=== PATIENT | male | born 1965 | race Two or more races ===

== ENCOUNTER 2017-10-30 11:57 | Inpatient (IN) | payer OTHER ==
[2017-10-30 13:16] VITALS: BMI 18.7
--- NOTE | 2017-10-30 15:37 | HP ---
COWS - Scale Resting Pulse: 1= [place] 81-100 Sweatin=Flushed/Facial Moisture Restless Observation: 1= Difficult to Sit Still Pupil Size: 0= Normal to Room Light Bone or Joint Aches: 2= Severe Diffuse Aches Runny Nose/ Eye Tearin= Runny Nose/Eyes GI Upset > 30mins: 2= Nausea/Diarrhea Tremor Observation: 2= Slight Tremor Visible Yawning Observation: 2= >3x During Session Anxiety or Irritability: 2=Irritable/Anxious Goose Flesh Skin: 3=Piloerection COWS Score: 19 Admission ROS S - HPI Chief Complaint: i need help with this drug use. Allergies/Adverse Reactions: Allergies Allergy/AdvReac Type Severity Reaction Status Date / Time No Known Drug Allergies Allergy Unknown Verified 07/22/12 08:30 seafood Allergy Severe Hives Uncoded 10/30/17 15:08 History of Present Illness: pt is a 52yr old male with a history of heorin and crack/cocaine dependence seeking detox for treatment. - Ebola screening Have you traveled outside of the country in the last 21 days: No Have you had contact with anyone from an Ebola affected area: No Have you been sick,other than usual withdrawal symptoms: No Do you have a fever: No - Review of Systems Constitutional: Chills, Diaphoresis, Loss of Appetite, Night Sweats, Changes in sleep, Unintentional Wgt. Loss EENT: reports: Tearing, Nose Congestion Respiratory: reports: No Symptoms reported Cardiac: reports: No Symptoms Reported GI: reports: Poor Appetite, Poor Fluid Intake : reports: No Symptoms Reported Musculoskeletal: reports: No Symptoms Reported, Joint Pain Integumentary: reports: Flushing, Sweating Neuro: reports: Headache, Tingling, Tremors Endocrine: reports: Excessive Sweating, Flushing, Intolerance to Cold, Intolerance to Heat Hematology: reports: No Symptoms Reported Psychiatric: reports: No Sypmtoms Reported, Judgement Intact, Mood/Affect Appropiate, Orientated x3, Agitated, Anxious Other Systems: Reviewed and Negative Patient History - Patient Medical History Hx Anemia: No Hx Asthma: Yes (on medication) Hx Chronic Obstructive Pulmonary Disease (COPD): No Hx Cancer: No Hx Cardiac Disorders: No Hx Congestive Heart Failure: No Hx Hypertension: Yes (non compliance) Hx Hypercholesterolemia: No Hx Pacemaker: No HX Cerebrovascular Accident: No Hx Seizures: Yes (drug related last 2010) Hx Dementia: No Hx Diabetes: No Hx Gastrointestinal Disorders: No Hx Liver Disease: No Hx Genitourinary Disorders: No Hx Sexually Transmitted Disorders: Yes (HIV, syphillis) Hx Renal Disease (ESRD): No Hx Thyroid Disease: No Hx Human Immunodeficiency Virus (HIV): Yes (since 1991/ non compliant with medication) Hx Hepatitis C: Yes (since 2003) Hx Depression: Yes (non compliance with med) Hx Suicide Attempt: No Hx Bipolar Disorder: Yes (non compliance with med) Hx Schizophrenia: No - Patient Surgical History Past Surgical History: Yes Hx Neurologic Surgery: No Hx Cataract Extraction: No Hx Cardiac Surgery: No Hx Lung Surgery: No Hx Breast Surgery: No Hx Breast Biopsy: No Hx Abdominal Surgery: No Hx Appendectomy: No Hx Cholecystectomy: No Hx Genitourinary Surgery: No Hx Section: No Hx Orthopedic Surgery: Yes (surgery for osteomyelitis left hip in 1983,1986) Other Surgical History: ambulation with cane Anesthesia Reaction: No - PPD History Previous Implant?: Yes Documented Results: Negative w/o proof Implanted On Prior R Admission?: Yes PPD to be Administered?: Yes - Reproductive History Patient is a Female of Child Bearing Age (11 -55 yrs old): No - Smoking Cessation Smoking history: Current every day smoker Have you smoked in the past 12 months: Yes Aproximately how many cigarettes per day: 10 Hx Chewing Tobacco Use: No Initiated information on smoking cessation: Yes 'Breaking Loose' booklet given: 10/30/17 - Substance & Tx. History Hx Substance Use: Yes Substance Use Type: Cocaine, Heroin Hx Substance Use Treatment: Yes (last detox [facility] 2014) - Substances Abused Heroin Route: Injection Frequency: Daily Amount used: 10-12 bags Age of first use: 16 Date of Last Use: 10/30/17 Crack Route: Smoking Frequency: Daily Amount used: $100-200 Age of first use: 23 Date of Last Use: 10/29/17 Family Disease History - Family Disease History Family Disease History: Diabetes: Mother (), Other: Father () Admission Physical Exam BHS - Vital Signs Vital Signs: Vital Signs - 24 hr 10/30/17 13:14 Temperature 96 F L Pulse Rate 81 Respiratory 20 Rate Blood Pressure 137/98 - Physical General Appearance: Yes: Appropriately Dressed, Moderate Distress, Cachetic, Thin, Tremorous, Irritable, Sweating, Anxious HEENTM: Yes: Normal Voice, Nasal Congestion, Rhinorrhea Respiratory: Yes: Lungs Clear, Normal Breath Sounds, No Respiratory Distress Neck: Yes: No masses,lesions,Nodules Breast: Yes: Within Normal Limits Cardiology: Yes: Regular Rhythm, Regular Rate, S1, S2 Abdominal: Yes: Normal Bowel Sounds, Non Tender, Soft Genitourinary: Yes: Within Normal Limits Back: Yes: Normal Inspection Musculoskeletal: Yes: Back pain, Muscle Pain Extremities: Yes: Normal Capillary Refill, Normal Inspection, Non-Tender, Tremors Neurological: Yes: Fully Oriented, Alert, Normal Response Integumentary: Yes: Normal Color, Diaphoresis, Track Weeks Lymphatic: Yes: Within Normal Limits - Diagnostic (1) Acquired immune deficiency syndrome (AIDS) Current Visit: Yes Status: Chronic Comment: non compliant with his medication (2) Asthma Current Visit: Yes Status: Chronic (3) Cocaine dependence Current Visit: Yes Status: Chronic (4) Essential hypertension Current Visit: Yes Status: Chronic (5) Hepatitis C carrier Current Visit: Yes Status: Chronic (6) Opioid dependence with withdrawal Current Visit: Yes Status: Chronic Cleared for Admission [facility] - Detox or Rehab [facility] Level of Care: Medically Managed Detox Regimen/Protocol: Methadone [facility] Breath Alcohol Content Breath Alcohol Content: 0 Urine Drug Screen - Results Drug Screen Negative: No Urine Drug Screen Results: THC-Marijuana, BENITO-Cocaine, OPI-Opiates
[2017-10-30] MEDS ORDERED: ACETAMINOPHEN 325 MG TABLET (FP) PO PRN (15:47)
[2017-10-30] MEDS ORDERED: NICOTINE POLACRILEX 4 MG GUM BC PRN (15:47)
[2017-10-30] MEDS ORDERED: MAGNESIUM CITRATE 300 ML BOTTLE PO PRN (15:47)
[2017-10-30] MEDS ORDERED: guaiFENesin/D-METHORPHAN HB 10 ML UNIT-DOSE CUPS PO PRN (15:47)
[2017-10-30] MEDS ORDERED: MAG HYDROX/AL HYDROX/SIMETH 30 ML UNIT-DOSE CUP PO PRN (15:47)
[2017-10-30] MEDS ORDERED: P-EPHED 60MG/TRIPROLIDI 2.5MG TABLET PO PRN (15:47)
[2017-10-30] MEDS ORDERED: IBUPROFEN 400 MG TABLET (FP) PO PRN (15:47)
[2017-10-30] MEDS ORDERED: hydrOXYzine PAMOATE 50 MG CAPSULE (FP) PO PRN (15:47)
[2017-10-30] MEDS ORDERED: MENTHOL/PHENOL 1 EACH UD MM PRN (15:47)
[2017-10-30] MEDS ORDERED: LOPERAMIDE HCL 2 MG CAPSULE PO PRN (15:47)
[2017-10-30] MEDS ORDERED: MAGNESIUM HYDROX 2400MG/30ML ORAL SUSPENSION 30 ML CUP PO PRN (15:47)
[2017-10-30] MEDS ORDERED: ALBUTEROL SO4 18 GM HFA INHALER IH PRN (15:49)
[2017-10-30] MEDS ORDERED: METHADONE HCL 10 MG TABLET (FOR DETOX USE ONLY) PO ONE ×2 (16:30→23:00)
[2017-10-30] MEDS: diazePAM 5 MG TABLET PO PRN ×2 (18:07→22:28)
[2017-10-30] MEDS: THIAMINE HCL 100 MG TABLET (FP) PO SCH (22:27)
[2017-10-31 00:26] LABS: URINE APPEARANCE SLCLOUDY; URINE BILIRUBIN NEGATIVE (NEGATIVE); URINE BLOOD NEGATIVE (NEGATIVE); URINE COLOR AMBER; URINE GLUCOSE (UA) NEGATIVE (NEGATIVE); URINE KETONE NEGATIVE (NEGATIVE); URINE LEUK ESTERASE NEGATIVE (NEGATIVE); URINE NITRITE NEGATIVE (NEGATIVE); URINE PROTEIN NEGATIVE (NEGATIVE); URINE UROBILINOGEN 4.0 E.U/dl mg/dL (0.2-1.0)
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
[2017-10-31] MEDS ORDERED: METHADONE HCL 10 MG TABLET (FOR DETOX USE ONLY) PO ONE (10:00)
[2017-10-31] MEDS: NICOTINE 21 MG/24 HOURS TOPICAL PATCH TD SCH (10:29)
[2017-10-31] MEDS: PRENATAL VITAMINS W/ FOLIC ACID TABLET (FP) PO SCH (10:29)
[2017-10-31] MEDS: diazePAM 5 MG TABLET PO PRN ×2 (10:30→22:26)
--- NOTE | 2017-10-31 10:50 | EKG ---
Test Reason : Blood Pressure : / mmHG Vent. Rate : 076 BPM Atrial Rate : 076 BPM P-R Int : 142 ms QRS Dur : 082 ms QT Int : 398 ms P-R-T Axes : 064 045 060 degrees QTc Int : 447 ms NORMAL SINUS RHYTHM NORMAL ECG NO PREVIOUS ECGS AVAILABLE Confirmed by MD CHARU, MYCHAL ([id number]) on 10/31/2017 10:50:23 AM Referred By: Confirmed By:MYCHAL BOX MD
[2017-10-31 11:07] LABS: ALBUMIN 2.5 g/dl (3.4-5.0); ANION GAP 4 (8-16); CALCIUM 7.9 mg/dL (8.5-10.1); CO2 31 mmol/L (21-32); GLUCOSE,RANDOM 77 mg/dL (74-106)
[2017-10-31 11:10] LABS: ALK PHOS 117 U/L (45-117); BILIRUBIN,TOTAL 0.3 mg/dL (0.2-1.0); CREATININE 0.8 mg/dL (0.7-1.3); SGOT/AST 63 U/L (15-37); SGPT/ALT 47 U/L (12-78); TOT PROT 6.3 g/dl (6.4-8.2)
[2017-10-31] MEDS: ESCITALOPRAM OXALATE 10 MG TABLET (FP) PO SCH (11:11)
[2017-10-31 11:13] LABS: MCH 27.7 pg (25.7-33.7); MCHC 32.1 g/dl (32.0-35.9); MEAN CELL VOLUME 86.5 fl (80-96); MEAN PLT VOLUME 8.9 fl (7.5-11.1); PLATELET COUNT 81 K/MM3 (134-434); RDW 15.7 % (11.9-15.9)
--- NOTE | 2017-10-31 14:42 | PN ---
S COWS - Scale Resting Pulse: 0= [place] 80 or Below Sweatin= No chills or Flushing Restless Observation: 1= Difficult to Sit Still Pupil Size: 0= Normal to Room Light Bone or Joint Aches: 2= Severe Diffuse Aches Runny Nose/ Eye Tearin= None GI Upset > 30mins: 1= Stomach Cramp Tremor Observation of Outstretched Hands: 2= Slight Tremor Visible Yawning Observation: 2= >3x During Session Anxiety or Irritability: 2=Irritable/Anxious Goose Flesh Skin: 3=Piloerection COWS Score: 13 S Progress Note (SOAP) Subjective: Anxious, Interrupted Sleep, Tremors, Sweating, Fatigue. Objective: PT. A & O X 3. NO ACUTE DISTRESS. 10/31/17 14:40 Vital Signs Temperature 98.2 F 10/31/17 13:09 Pulse Rate 80 10/31/17 13:09 Respiratory Rate 18 10/31/17 13:09 Blood Pressure 128/85 10/31/17 13:09 O2 Sat by Pulse Oximetry (%) Laboratory Tests 10/30/17 10/31/17 10/31/17 21:00 07:00 07:00 WBC 2.0 L RBC 3.79 L Hgb 10.5 L D Hct 32.8 L MCV 86.5 MCH 27.7 MCHC 32.1 RDW 15.7 Plt Count 81 L D MPV 8.9 Sodium 145 Potassium 3.6 Chloride 110 H Carbon Dioxide 31 Anion Gap 4 L BUN 15 D Creatinine 0.8 Creat Clearance w eGFR > 60 Random Glucose 77 D Calcium 7.9 L Total Bilirubin 0.3 D AST 63 H ALT 47 D Alkaline Phosphatase 117 Total Protein 6.3 L Albumin 2.5 L D Urine Color [place] Urine Appearance Slcloudy Urine pH 5.0 Ur Specific [place] 1.021 Urine Protein Negative Urine Glucose (UA) Negative Urine Ketones Negative Urine Blood Negative Urine Nitrite Negative Urine Bilirubin Negative Urine Urobilinogen 4.0 e.u/dl RPR Titer 10/31/17 07:00 WBC RBC Hgb Hct MCV MCH MCHC RDW Plt Count MPV Sodium Potassium Chloride Carbon Dioxide Anion Gap BUN Creatinine Creat Clearance w eGFR Random Glucose Calcium Total Bilirubin AST ALT Alkaline Phosphatase Total Protein Albumin Urine Color Urine Appearance Urine pH Ur Specific [place] Urine Protein Urine Glucose (UA) Urine Ketones Urine Blood Urine Nitrite Urine Bilirubin Urine Urobilinogen RPR Titer Nonreactive LABS NOTED. PATIENT HAS HAD LOW WBC VALUES ON PREVIOUS ADMISSIONS. 10/31/17 14:43 Assessment: 10/31/17 14:41 WITHDRAWAL SYMPTOMS. LEUKOPENIA. ANEMIA. 10/31/17 14:44 Plan: CONTINUE DETOX. FEOSOL, 325 MG PO DAILY.
[2017-10-31 15:07] LABS: URINE LEUK ESTERASE Negative (NEGATIVE)
[2017-10-31] MEDS: FERROUS SO4 325 MG TABLET (FP) PO SCH (15:13)
[2017-10-31] MEDS: ZOLPIDEM TARTRATE 10 MG TABLET (PARK CARE ONLY) PO PRN (22:26)
[2017-10-31] MEDS: THIAMINE HCL 100 MG TABLET (FP) PO SCH (22:26)
[2017-11-01] MEDS: diazePAM 5 MG TABLET PO PRN ×3 (05:17→22:24)
[2017-11-01] MEDS ORDERED: METHADONE HCL 5 MG TABLET (FOR DETOX USE ONLY) PO ONE (10:00)
[2017-11-01] MEDS: FERROUS SO4 325 MG TABLET (FP) PO SCH (10:30)
[2017-11-01] MEDS: ESCITALOPRAM OXALATE 10 MG TABLET (FP) PO SCH (10:30)
[2017-11-01] MEDS: PRENATAL VITAMINS W/ FOLIC ACID TABLET (FP) PO SCH (10:30)
[2017-11-01] MEDS: NICOTINE 21 MG/24 HOURS TOPICAL PATCH TD SCH (10:32)
--- NOTE | 2017-11-01 13:58 | PN ---
S COWS - Scale Resting Pulse: 1= [place] 81-100 Sweatin= Chills/Flushing Restless Observation: 1= Difficult to Sit Still Pupil Size: 0= Normal to Room Light Bone or Joint Aches: 2= Severe Diffuse Aches Runny Nose/ Eye Tearin= Nasal Congestion GI Upset > 30mins: 0= None Tremor Observation of Outstretched Hands: 0= None Yawning Observation: 1= 1-2x During Session Anxiety or Irritability: 2=Irritable/Anxious Goose Flesh Skin: 3=Piloerection COWS Score: 12 BHS Progress Note (SOAP) Subjective: Tremors, Fatigue, Body Aches. Objective: PT. A & O X 3, OBSERVED AMBULATING ON UNIT. NO ACUTE DISTRESS. PT. DENIES CHEST PAIN. 11/01/17 13:59 Vital Signs Temperature 97.5 F L 11/01/17 13:24 Pulse Rate 85 11/01/17 13:24 Respiratory Rate 18 11/01/17 13:24 Blood Pressure 138/99 11/01/17 13:24 O2 Sat by Pulse Oximetry (%) Laboratory Tests 10/30/17 10/31/17 10/31/17 21:00 07:00 07:00 WBC 2.0 L RBC 3.79 L Hgb 10.5 L D Hct 32.8 L MCV 86.5 MCH 27.7 MCHC 32.1 RDW 15.7 Plt Count 81 L D MPV 8.9 Sodium 145 Potassium 3.6 Chloride 110 H Carbon Dioxide 31 Anion Gap 4 L BUN 15 D Creatinine 0.8 Creat Clearance w eGFR > 60 Random Glucose 77 D Calcium 7.9 L Total Bilirubin 0.3 D AST 63 H ALT 47 D Alkaline Phosphatase 117 Total Protein 6.3 L Albumin 2.5 L D Urine Color [place] Urine Appearance Slcloudy Urine pH 5.0 Ur Specific [place] 1.021 Urine Protein Negative Urine Glucose (UA) Negative Urine Ketones Negative Urine Blood Negative Urine Nitrite Negative Urine Bilirubin Negative Urine Urobilinogen 4.0 e.u/dl Ur Leukocyte Esterase Negative RPR Titer 10/31/17 07:00 WBC RBC Hgb Hct MCV MCH MCHC RDW Plt Count MPV Sodium Potassium Chloride Carbon Dioxide Anion Gap BUN Creatinine Creat Clearance w eGFR Random Glucose Calcium Total Bilirubin AST ALT Alkaline Phosphatase Total Protein Albumin Urine Color Urine Appearance Urine pH Ur Specific [place] Urine Protein Urine Glucose (UA) Urine Ketones Urine Blood Urine Nitrite Urine Bilirubin Urine Urobilinogen Ur Leukocyte Esterase RPR Titer Nonreactive LABS NOTED. Assessment: 11/01/17 13:59 WITHDRAWAL SYMPTOMS. Plan: CONTINUE DETOX. REPEAT CBC TOMORROW AM FOR ABNORMAL ADMISSION LEVELS.
[2017-11-01] MEDS: THIAMINE HCL 100 MG TABLET (FP) PO SCH (22:23)
[2017-11-01] MEDS: ZOLPIDEM TARTRATE 10 MG TABLET (PARK CARE ONLY) PO PRN (22:23)
[2017-11-02] MEDS ORDERED: METHADONE HCL 5 MG TABLET (FOR DETOX USE ONLY) PO ONE (10:00)
[2017-11-02 10:23] LABS: MCHC 32.4 g/dl (32.0-35.9); MEAN CELL VOLUME 86.5 fl (80-96); MEAN PLT VOLUME 9.5 fl (7.5-11.1); PLATELET COUNT 101 K/MM3 (134-434); RDW 15.2 % (11.9-15.9); WHITE BLOOD COUNT 2.4 K/mm3 (4.0-10.0)
[2017-11-02] MEDS: FERROUS SO4 325 MG TABLET (FP) PO SCH (10:30)
[2017-11-02] MEDS: NICOTINE 21 MG/24 HOURS TOPICAL PATCH TD SCH (10:30)
[2017-11-02] MEDS: PRENATAL VITAMINS W/ FOLIC ACID TABLET (FP) PO SCH (10:30)
[2017-11-02] MEDS: ESCITALOPRAM OXALATE 10 MG TABLET (FP) PO SCH (10:30)
--- NOTE | 2017-11-02 13:21 | PN ---
BHS Progress Note (SOAP) Subjective: Chills, sweating, nausea, interrupted sleep Objective: 11/02/17 13:19 Last Vital Signs Temp Pulse Resp BP Pulse Ox 99.4 F 93 H 18 118/85 11/02/17 10:33 11/02/17 10:33 11/02/17 10:33 11/02/17 10:33 Laboratory Tests 10/30/17 10/31/17 10/31/17 21:00 07:00 07:00 WBC 2.0 L RBC 3.79 L Hgb 10.5 L D Hct 32.8 L MCV 86.5 MCH 27.7 MCHC 32.1 RDW 15.7 Plt Count 81 L D MPV 8.9 Neutrophils % Lymphocytes % Sodium 145 Potassium 3.6 Chloride 110 H Carbon Dioxide 31 Anion Gap 4 L BUN 15 D Creatinine 0.8 Creat Clearance w eGFR > 60 Random Glucose 77 D Calcium 7.9 L Total Bilirubin 0.3 D AST 63 H ALT 47 D Alkaline Phosphatase 117 Total Protein 6.3 L Albumin 2.5 L D Urine Color [place] Urine Appearance Slcloudy Urine pH 5.0 Ur Specific [place] 1.021 Urine Protein Negative Urine Glucose (UA) Negative Urine Ketones Negative Urine Blood Negative Urine Nitrite Negative Urine Bilirubin Negative Urine Urobilinogen 4.0 e.u/dl Ur Leukocyte Esterase Negative RPR Titer 10/31/17 11/02/17 07:00 08:00 WBC 2.4 L RBC 3.78 L Hgb 10.6 L Hct 32.7 L MCV 86.5 MCH 28.0 MCHC 32.4 RDW 15.2 Plt Count 101 L D MPV 9.5 Neutrophils % No Result Required. Lymphocytes % No Result Required. Sodium Potassium Chloride Carbon Dioxide Anion Gap BUN Creatinine Creat Clearance w eGFR Random Glucose Calcium Total Bilirubin AST ALT Alkaline Phosphatase Total Protein Albumin Urine Color Urine Appearance Urine pH Ur Specific [place] Urine Protein Urine Glucose (UA) Urine Ketones Urine Blood Urine Nitrite Urine Bilirubin Urine Urobilinogen Ur Leukocyte Esterase RPR Titer Nonreactive Labs noted Assessment: 11/02/17 13:20 Withdrawal symptoms Plan: Continue detox
[2017-11-02 14:25] LABS: TOTAL CELLS COUNTED 100
[2017-11-02 14:26] LABS: PLATELET ESTIMATE SLT DECREASE; REACTIVE LYMPHOCYTES 7 % (0-80)
[2017-11-02] MEDS: ZOLPIDEM TARTRATE 10 MG TABLET (PARK CARE ONLY) PO PRN (22:13)
[2017-11-02] MEDS: THIAMINE HCL 100 MG TABLET (FP) PO SCH (22:13)
[2017-11-03] MEDS ORDERED: METHADONE HCL 10 MG TABLET (FOR DETOX USE ONLY) PO ONE (10:00)
[2017-11-03] MEDS: PRENATAL VITAMINS W/ FOLIC ACID TABLET (FP) PO SCH (10:20)
[2017-11-03] MEDS: NICOTINE 21 MG/24 HOURS TOPICAL PATCH TD SCH (10:20)
[2017-11-03] MEDS: ESCITALOPRAM OXALATE 10 MG TABLET (FP) PO SCH (10:20)
[2017-11-03] MEDS: FERROUS SO4 325 MG TABLET (FP) PO SCH (10:20)
--- NOTE | 2017-11-03 12:15 | PN ---
BHS Progress Note (SOAP) Subjective: Tremors, Fatigue, Interrupted Sleep. Objective: PT. A & O X 3, OBSERVED AMBULATING ON UNIT. NO ACUTE DISTRESS. 11/03/17 12:13 Vital Signs Temperature 97 F L 11/03/17 09:22 Pulse Rate 79 11/03/17 09:22 Respiratory Rate 18 11/03/17 09:22 Blood Pressure 124/84 11/03/17 09:22 O2 Sat by Pulse Oximetry (%) Laboratory Tests 10/30/17 10/31/17 10/31/17 21:00 07:00 07:00 WBC 2.0 L RBC 3.79 L Hgb 10.5 L D Hct 32.8 L MCV 86.5 MCH 27.7 MCHC 32.1 RDW 15.7 Plt Count 81 L D MPV 8.9 Total Counted Neutrophils % Neutrophils % (Manual) Band Neutrophils % Lymphocytes % Lymphocytes % (Manual) Monocytes % (Manual) Eosinophils % (Manual) Platelet Estimate Sodium 145 Potassium 3.6 Chloride 110 H Carbon Dioxide 31 Anion Gap 4 L BUN 15 D Creatinine 0.8 Creat Clearance w eGFR > 60 Random Glucose 77 D Calcium 7.9 L Total Bilirubin 0.3 D AST 63 H ALT 47 D Alkaline Phosphatase 117 Total Protein 6.3 L Albumin 2.5 L D Urine Color [place] Urine Appearance Slcloudy Urine pH 5.0 Ur Specific [place] 1.021 Urine Protein Negative Urine Glucose (UA) Negative Urine Ketones Negative Urine Blood Negative Urine Nitrite Negative Urine Bilirubin Negative Urine Urobilinogen 4.0 e.u/dl Ur Leukocyte Esterase Negative RPR Titer 10/31/17 11/02/17 07:00 08:00 WBC 2.4 L RBC 3.78 L Hgb 10.6 L Hct 32.7 L MCV 86.5 MCH 28.0 MCHC 32.4 RDW 15.2 Plt Count 101 L D MPV 9.5 Total Counted 100 Neutrophils % No Result Required. Neutrophils % (Manual) 31.0 L Band Neutrophils % 3.0 Lymphocytes % No Result Required. Lymphocytes % (Manual) 51.0 H Monocytes % (Manual) 4 Eosinophils % (Manual) 4.0 Platelet Estimate Slt decrease Sodium Potassium Chloride Carbon Dioxide Anion Gap BUN Creatinine Creat Clearance w eGFR Random Glucose Calcium Total Bilirubin AST ALT Alkaline Phosphatase Total Protein Albumin Urine Color Urine Appearance Urine pH Ur Specific [place] Urine Protein Urine Glucose (UA) Urine Ketones Urine Blood Urine Nitrite Urine Bilirubin Urine Urobilinogen Ur Leukocyte Esterase RPR Titer Nonreactive LABS NOTED. Assessment: 11/03/17 12:13 WITHDRAWAL SYMPTOMS. Plan: CONTINUE DETOX. INCREASE DAILY PO FLUID INTAKE.
[2017-11-03] MEDS: ZOLPIDEM TARTRATE 10 MG TABLET (PARK CARE ONLY) PO PRN (21:59)
[2017-11-03] MEDS: THIAMINE HCL 100 MG TABLET (FP) PO SCH (22:22)
[2017-11-04] MEDS ORDERED: METHADONE HCL 5 MG TABLET (FOR DETOX USE ONLY) PO ONE (06:00)
[2017-11-04 09:13] VITALS: BP 106/78; PULSE 89; TEMP 98.6
[2017-11-04] MEDS: NICOTINE 21 MG/24 HOURS TOPICAL PATCH TD SCH (10:23)
[2017-11-04] MEDS: PRENATAL VITAMINS W/ FOLIC ACID TABLET (FP) PO SCH (10:23)
[2017-11-04] MEDS: FERROUS SO4 325 MG TABLET (FP) PO SCH (10:24)
[2017-11-04] MEDS: ESCITALOPRAM OXALATE 10 MG TABLET (FP) PO SCH (10:24)
--- NOTE | 2017-11-04 11:44 | DS ---
[facility] Detox Discharge Summary Admission Date: 10/30/17 Discharge Date: 11/04/17 - History Present History: Opioid Dependence Pertinent Past History: asthma bipolar ii hypetension hiv - Physical Exam Results Vital Signs: Vital Signs Temperature 98.6 F 11/04/17 09:13 Pulse Rate 89 11/04/17 09:13 Respiratory Rate 16 11/04/17 09:13 Blood Pressure 106/78 11/04/17 09:13 O2 Sat by Pulse Oximetry (%) Pertinent Admission Physical Exam Findings: withdrawal sx Laboratory Last Values WBC 2.4 K/mm3 (4.0-10.0) L 11/02/17 08:00 RBC 3.78 M/mm3 (4.00-5.60) L 11/02/17 08:00 Hgb 10.6 GM/dL (11.7-16.9) L 11/02/17 08:00 Hct 32.7 % (35.4-49) L 11/02/17 08:00 MCV 86.5 fl (80-96) 11/02/17 08:00 MCH 28.0 pg (25.7-33.7) 11/02/17 08:00 MCHC 32.4 g/dl (32.0-35.9) 11/02/17 08:00 RDW 15.2 % (11.9-15.9) 11/02/17 08:00 Plt Count 101 K/MM3 (134-434) L D 11/02/17 08:00 MPV 9.5 fl (7.5-11.1) 11/02/17 08:00 Total Counted 100 11/02/17 08:00 Neutrophils % No Result Required. 11/02/17 08:00 Neutrophils % (Manual) 31.0 % (42.8-82.8) L 11/02/17 08:00 Band Neutrophils % 3.0 % 11/02/17 08:00 Lymphocytes % No Result Required. 11/02/17 08:00 Lymphocytes % (Manual) 51.0 % (8-40) H 11/02/17 08:00 Monocytes % (Manual) 4 % (3.8-10.2) 11/02/17 08:00 Eosinophils % (Manual) 4.0 % (0-4.5) 11/02/17 08:00 Platelet Estimate Slt decrease 12/10/17 08:00 Sodium 145 mmol/L (136-145) 10/31/17 07:00 Potassium 3.6 mmol/L (3.5-5.1) 10/31/17 07:00 Chloride 110 mmol/L (98-107) H 10/31/17 07:00 Carbon Dioxide 31 mmol/L (21-32) 10/31/17 07:00 Anion Gap 4 (8-16) L 10/31/17 07:00 BUN 15 mg/dL (7-18) D 10/31/17 07:00 Creatinine 0.8 mg/dL (0.7-1.3) 10/31/17 07:00 Creat Clearance w eGFR > 60 (>60) 10/31/17 07:00 Random Glucose 77 mg/dL (74-106) D 10/31/17 07:00 Calcium 7.9 mg/dL (8.5-10.1) L 10/31/17 07:00 Total Bilirubin 0.3 mg/dL (0.2-1.0) D 10/31/17 07:00 AST 63 U/L (15-37) H 10/31/17 07:00 ALT 47 U/L (12-78) D 10/31/17 07:00 Alkaline Phosphatase 117 U/L (45-117) 10/31/17 07:00 Total Protein 6.3 g/dl (6.4-8.2) L 10/31/17 07:00 Albumin 2.5 g/dl (3.4-5.0) L D 10/31/17 07:00 Urine Color [place] 10/30/17 21:00 Urine Appearance Slcloudy 10/30/17 21:00 Urine pH 5.0 (5.0-8.0) 10/30/17 21:00 Ur Specific [place] 1.021 (1.001-1.035) 10/30/17 21:00 Urine Protein Negative (NEGATIVE) 10/30/17 21:00 Urine Glucose (UA) Negative (NEGATIVE) 10/30/17 21:00 Urine Ketones Negative (NEGATIVE) 10/30/17 21:00 Urine Blood Negative (NEGATIVE) 10/30/17 21:00 Urine Nitrite Negative (NEGATIVE) 10/30/17 21:00 Urine Bilirubin Negative (NEGATIVE) 10/30/17 21:00 Urine Urobilinogen 4.0 e.u/dl mg/dL (0.2-1.0) 10/30/17 21:00 Ur Leukocyte Esterase Negative (NEGATIVE) 10/30/17 21:00 RPR Titer Nonreactive (NONREACTIVE) 10/31/17 07:00 lab noted - Treatment Hospital Course: Detox Protocol Followed, Detoxed Safely, Responded well, Discharged Condition Good, Rehab Referral Accepted - Medication Discharge Medications: Ambulatory Orders Dolutegravir Sodium [Tivicay] 50 mg PO DAILY 10/30/17 Emtricitabine/Tenofovir [Truvada] 1 tab PO DAILY 10/30/17 Escitalopram Oxalate [Lexapro -] 10 mg PO DAILY #30 tablet 10/31/17 Albuterol Sulfate Inhaler - [Ventolin Hfa *Inhaler*] 2 inh IH Q4H PRN #1 inhaler 11/04/17 - Diagnosis (1) Opioid dependence with withdrawal Current Visit: Yes Status: Acute (2) Acquired immune deficiency syndrome (AIDS) Current Visit: Yes Status: Chronic (3) Asthma Current Visit: Yes Status: Chronic (4) Bipolar II disorder Current Visit: Yes Status: Suspected (5) Essential hypertension Current Visit: Yes Status: Chronic - AMA Did Patient Leave Against Medical Advice: No
== END 2017-11-04 12:15 | disposition home or self-care (01) | DRG 773 ==
LOC: YASAS 11:57 → Y3N 15:59
PROVIDERS: ADMIT Internal Medicine; ATTEND Internal Medicine
PROC: HZ2ZZZZ Detoxification Services for Substance Abuse Treatment (ICD-10-PCS; principal; 2017-10-30)
DX: F11.23 Opioid dependence with withdrawal (principal); F14.20 Cocaine dependence, uncomplicated; F31.81 Bipolar II disorder; F19.24 Other psychoactive substance dependence with psychoactive substance-induced mood disorder; F19.282 Other psychoactive substance dependence with psychoactive substance-induced sleep disorder; I10 Essential (primary) hypertension; J45.909 Unspecified asthma, uncomplicated; B20 Human immunodeficiency virus [HIV] disease
CPT/HCPCS: 36415; 80053; 81003; 85025; 85027; 86593; 93005; 93010

== ENCOUNTER 2017-11-04 12:18 | Inpatient (IN) | payer OTHER ==
[2017-11-04 12:49] VITALS: BMI 18.8
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
[2017-11-04] MEDS ORDERED: MENTHOL/PHENOL 1 EACH UD MM PRN (15:58)
[2017-11-04] MEDS ORDERED: MAG HYDROX/AL HYDROX/SIMETH 30 ML UNIT-DOSE CUP PO PRN (15:58)
[2017-11-04] MEDS ORDERED: MAGNESIUM HYDROX 2400MG/30ML ORAL SUSPENSION 30 ML CUP PO PRN (15:58)
[2017-11-04] MEDS ORDERED: MAGNESIUM CITRATE 300 ML BOTTLE PO PRN (15:58)
[2017-11-04] MEDS ORDERED: LOPERAMIDE HCL 2 MG CAPSULE PO PRN (15:58)
[2017-11-04] MEDS ORDERED: guaiFENesin/D-METHORPHAN HB 10 ML UNIT-DOSE CUPS PO PRN (15:58)
[2017-11-04] MEDS ORDERED: NICOTINE POLACRILEX 2 MG GUM BUC PRN (15:58)
[2017-11-04] MEDS ORDERED: P-EPHED 60MG/TRIPROLIDI 2.5MG TABLET PO PRN (15:58)
[2017-11-04] MEDS ORDERED: ACETAMINOPHEN 325 MG TABLET (FP) PO PRN (15:58)
[2017-11-04] MEDS ORDERED: IBUPROFEN 400 MG TABLET (FP) PO PRN (15:58)
[2017-11-04] MEDS ORDERED: ALBUTEROL SO4 18 GM HFA INHALER IH PRN (15:59)
--- NOTE | 2017-11-04 16:59 | HP ---
[facility] Re[facility] Assess/Revision - Admission History Admitted to Rehab from: [facility] [address] [place] Date of Admission to Rehab: 11/04/17 - Vital signs Vital Signs: Vital Signs Period Temp Pulse Resp BP Sys/Rodgers Pulse Ox Last 24 Hr 98.1 F 81 20 106/73 - Findings Detox History & Physical reviewed: Yes Concur with findings: Yes Inpatient Rehab Admission - Initial Determination Are CD services needed?: Yes Free of communicable disease: Yes Not in need of hospitalization: Yes - Rehab Admission Criteria Comorbidities: Yes Lacks judgement: Yes Patient is meeting Inpatient Rehab admission criteria:: Yes
[2017-11-04] MEDS: THIAMINE HCL 100 MG TABLET (FP) PO SCH (21:10)
[2017-11-04] MEDS: SUVOREXANT 10 MG TABLET PO PRN (21:11)
[2017-11-05] MEDS: PRENATAL VITAMINS W/ FOLIC ACID TABLET (FP) PO SCH (09:44)
[2017-11-05] MEDS: NICOTINE 14 MG/24 HOURS TOPICAL PATCH TD SCH (09:44)
[2017-11-05] MEDS: ESCITALOPRAM OXALATE 10 MG TABLET (FP) PO SCH (09:44)
[2017-11-05] MEDS: FERROUS SO4 325 MG TABLET (FP) PO SCH (09:44)
--- NOTE | 2017-11-05 09:52 | PN ---
Psychiatric Progress Note Vital Signs: Vital Signs Period Temp Pulse Resp BP Sys/Rodgers Pulse Ox Last 24 Hr 97.9 F-98.1 F 70-81 18-20 106-137/73-97 Date of Session: 11/05/17 Chief Complaint:: Insomnia HPI: Patient addressing Opoid and Cocaine Dependence comorobid with Nicotine Dependence, Bipolar II Disorder, Substance-induced Sleep Disorder ROS: Anemia, Asthma, HTN, AIDS, Hep C, Seizure Disorder, S/P surgery for osteomyelitis left hip Current Medications: Active Medications Generic Name Dose Route Start Last Admin Trade Name Freq PRN Reason Stop Dose Admin Acetaminophen 650 mg 11/04/17 15:58 Tylenol - PO Q4H PRN FEVER OR PAIN Al Hydroxide/Mg Hydroxide 30 ml 11/04/17 15:58 Mylanta Oral Suspension - PO Q6H PRN DYSPEPSIA Albuterol Sulfate 2 puff 11/04/17 15:59 Ventolin Hfa Inhaler - IH Q4H PRN ASTHMA Escitalopram Oxalate 10 mg 11/05/17 10:00 11/05/17 09:44 Lexapro - PO 10 mg DAILY TICO Administration Eucalyptus/Menthol/Phenol/Sorbitol 1 each 11/04/17 15:58 Cepastat Lozenge - MM Q4H PRN SORE THROAT Ferrous Sulfate 325 mg 11/05/17 10:00 11/05/17 09:44 Feosol - PO 325 mg DAILY TICO Administration Guaifenesin 10 ml 11/04/17 15:58 Robitussin Dm - PO Q6H PRN COUGH Ibuprofen 400 mg 11/04/17 15:58 Motrin - PO Q6H PRN PAIN Loperamide HCl 4 mg 11/04/17 15:58 Imodium - PO Q6H PRN DIARRHEA Magnesium Citrate 300 ml 11/04/17 15:58 Citroma - PO Q48H PRN CONSTIPATION Magnesium Hydroxide 30 ml 11/04/17 15:58 Milk Of Magnesia - PO DAILY PRN CONSTIPATION Nicotine 14 mg 11/05/17 10:00 11/05/17 09:44 Nicoderm Patch - TD 14 mg DAILY TICO Administration Nicotine Polacrilex 2 mg 11/04/17 15:58 Nicorette Gum - BUC Q2H PRN NICOTINE REPLACEMENT RX Multivit/Folic Acid/Iron 1 tab 11/05/17 10:00 11/05/17 09:44 Vitamins (Sjr) - PO 1 tab DAILY TICO Administration Pseudoephedrine/Triprolidine 1 combo 11/04/17 15:58 Actifed - PO TID PRN NASAL CONGESTION Thiamine HCl 100 mg 11/04/17 22:00 11/04/17 21:10 Vitamin B1 - PO 100 mg HS TICO Administration Medication(s) Change(s): 1) Start Trazadone 100 mg po HS for insomnia. 2) D/C Belsomra Current Side Effect: No Lab tests ordered: Yes Lab tests reviewed: Yes Provider note:: Patient experiencing difficulty to sleep. Told ghost writer that he slept poorly last night despite taking Belsomra. Requests to be switched to something else. Hypnotic properties as well as adverse-effect of Trazadone and other alternative discussed with patient and he has agreed to try Trazadone Total face to face time:: 15 Mental Status Exam - Mental Status Exam Alert and Oriented to: Time, Place, Person Cognitive Function: Fair Patient Appearance: Well Groomed Mood: Hopeful, Euthymic Patient Behavior: Cooperative Speech Pattern: Clear Voice Loudness: Normal Thought Process: Intact, Goal Oriented Thought Disorder: Not Present Hallucinations: Denies Suicidal Ideation: Denies Homicidal Ideation: Denies Insight/Judgement: Fair Sleep: Poorly Appetite: Good Muscle strength/Tone: Normal Gait/Station: Normal Psychiatric Treatment Plan - Problem List (1) Opioid dependence Current Visit: No (2) Cocaine dependence Current Visit: No (3) Nicotine dependence Current Visit: No (4) Bipolar II disorder Current Visit: No (5) Substance-induced sleep disorder Current Visit: No (6) s/p surgery for osteomyelitis left hip Current Visit: No (7) Acquired immune deficiency syndrome (AIDS) Current Visit: No Comment: non compliant with his medication (8) Anemia Current Visit: No (9) Asthma Current Visit: No (10) Essential hypertension Current Visit: No (11) Hepatitis C carrier Current Visit: No (12) Seizure Current Visit: No Initial treatment plan: 1) Discontinue Belsomra 10 mg po HS. 2) Start Trazadone 100 mg po HS for insomnia. 3) Monitor progress
[2017-11-05] MEDS: THIAMINE HCL 100 MG TABLET (FP) PO SCH (21:45)
[2017-11-06] MEDS: FERROUS SO4 325 MG TABLET (FP) PO SCH (09:52)
[2017-11-06] MEDS: PRENATAL VITAMINS W/ FOLIC ACID TABLET (FP) PO SCH (09:52)
[2017-11-06] MEDS: ESCITALOPRAM OXALATE 10 MG TABLET (FP) PO SCH (09:53)
[2017-11-06] MEDS: NICOTINE 14 MG/24 HOURS TOPICAL PATCH TD SCH (09:53)
[2017-11-06] MEDS: THIAMINE HCL 100 MG TABLET (FP) PO SCH (21:05)
[2017-11-06] MEDS: SUVOREXANT 10 MG TABLET PO PRN (21:07)
[2017-11-07] MEDS: ESCITALOPRAM OXALATE 10 MG TABLET (FP) PO SCH (09:28)
[2017-11-07] MEDS: NICOTINE 14 MG/24 HOURS TOPICAL PATCH TD SCH (09:28)
[2017-11-07] MEDS: PRENATAL VITAMINS W/ FOLIC ACID TABLET (FP) PO SCH (09:28)
[2017-11-07] MEDS: FERROUS SO4 325 MG TABLET (FP) PO SCH (09:28)
[2017-11-07] MEDS: traZODone HCL 100 MG TABLET (FP) PO SCH (21:09)
[2017-11-07] MEDS: THIAMINE HCL 100 MG TABLET (FP) PO SCH (21:09)
[2017-11-08] MEDS: FERROUS SO4 325 MG TABLET (FP) PO SCH (10:28)
[2017-11-08] MEDS: PRENATAL VITAMINS W/ FOLIC ACID TABLET (FP) PO SCH (10:29)
[2017-11-08] MEDS: NICOTINE 14 MG/24 HOURS TOPICAL PATCH TD SCH (10:29)
[2017-11-08] MEDS: ESCITALOPRAM OXALATE 10 MG TABLET (FP) PO SCH (10:29)
[2017-11-08] MEDS: traZODone HCL 100 MG TABLET (FP) PO SCH (21:43)
[2017-11-08] MEDS: THIAMINE HCL 100 MG TABLET (FP) PO SCH (21:43)
[2017-11-09] MEDS: PRENATAL VITAMINS W/ FOLIC ACID TABLET (FP) PO SCH (09:20)
[2017-11-09] MEDS: ESCITALOPRAM OXALATE 10 MG TABLET (FP) PO SCH (09:20)
[2017-11-09] MEDS: FERROUS SO4 325 MG TABLET (FP) PO SCH (09:20)
[2017-11-09] MEDS: NICOTINE 14 MG/24 HOURS TOPICAL PATCH TD SCH (09:20)
[2017-11-09] MEDS: traZODone HCL 50 MG TABLET (FP) PO SCH (21:13)
[2017-11-09] MEDS: THIAMINE HCL 100 MG TABLET (FP) PO SCH (21:14)
--- NOTE | 2017-11-10 09:38 | PN ---
Psychiatric Progress Note Vital Signs: Vital Signs Period Temp Pulse Resp BP Sys/Rodgers Pulse Ox Last 24 Hr 98.2 F 95 18-20 132/77 Date of Session: 11/10/17 Chief Complaint:: Insomnia HPI: Patient addressing Opoid and Cocaine Dependence comorobid with Nicotine Dependence, Bipolar II Disorder, Substance-induced Sleep Disorder ROS: Anemia, Asthma, HTN, AIDS, Hep C, Seizure Disorder, S/P surgery for osteomyelitis left hip Current Medications: Active Medications Generic Name Dose Route Start Last Admin Trade Name Freq PRN Reason Stop Dose Admin Acetaminophen 650 mg 11/04/17 15:58 Tylenol - PO Q4H PRN FEVER OR PAIN Al Hydroxide/Mg Hydroxide 30 ml 11/04/17 15:58 Mylanta Oral Suspension - PO Q6H PRN DYSPEPSIA Albuterol Sulfate 2 puff 11/04/17 15:59 Ventolin Hfa Inhaler - IH Q4H PRN ASTHMA Escitalopram Oxalate 10 mg 11/05/17 10:00 11/09/17 09:20 Lexapro - PO 10 mg DAILY TICO Administration Eucalyptus/Menthol/Phenol/Sorbitol 1 each 11/04/17 15:58 Cepastat Lozenge - MM Q4H PRN SORE THROAT Ferrous Sulfate 325 mg 11/05/17 10:00 11/09/17 09:20 Feosol - PO 325 mg DAILY TICO Administration Guaifenesin 10 ml 11/04/17 15:58 Robitussin Dm - PO Q6H PRN COUGH Ibuprofen 400 mg 11/04/17 15:58 Motrin - PO Q6H PRN PAIN Loperamide HCl 4 mg 11/04/17 15:58 Imodium - PO Q6H PRN DIARRHEA Magnesium Citrate 300 ml 11/04/17 15:58 Citroma - PO Q48H PRN CONSTIPATION Magnesium Hydroxide 30 ml 11/04/17 15:58 Milk Of Magnesia - PO DAILY PRN CONSTIPATION Nicotine 14 mg 11/05/17 10:00 11/09/17 09:20 Nicoderm Patch - TD 14 mg DAILY TICO Administration Nicotine Polacrilex 2 mg 11/04/17 15:58 Nicorette Gum - BUC Q2H PRN NICOTINE REPLACEMENT RX Multivit/Folic Acid/Iron 1 tab 11/05/17 10:00 11/09/17 09:20 Vitamins (Sjr) - PO 1 tab DAILY TICO Administration Pseudoephedrine/Triprolidine 1 combo 11/04/17 15:58 Actifed - PO TID PRN NASAL CONGESTION Thiamine HCl 100 mg 11/04/17 22:00 11/09/17 21:14 Vitamin B1 - PO 100 mg HS TICO Administration Trazodone HCl 150 mg 11/09/17 22:00 11/09/17 21:13 Desyrel - PO 150 mg HS TICO Administration Medication(s) Change(s): Start Seroquel 100 mg po HS and Vistaril 50 mg po Q 4hrs prn for anxiety Current Side Effect: No Lab tests ordered: Yes Lab tests reviewed: Yes Provider note:: Patient is still complaining of difficulty to sleep despite taking Trazadone 100 mg at bedtime last night. She requests that Seroquel be ordered. Patient explained indications and adverse-effects of Seroquel and he insists on having it ordered Total face to face time:: 15 Mental Status Exam - Mental Status Exam Alert and Oriented to: Time, Place, Person Cognitive Function: Fair Patient Appearance: Well Groomed Mood: Anxious Affect: Appropriate Patient Behavior: Cooperative Speech Pattern: Clear Voice Loudness: Normal Thought Process: Intact, Goal Oriented Thought Disorder: Not Present Hallucinations: Denies Suicidal Ideation: Denies Homicidal Ideation: Denies Insight/Judgement: Fair Sleep: Poorly Appetite: Good Muscle strength/Tone: Normal Gait/Station: Normal Psychiatric Treatment Plan - Problem List (1) Opioid dependence Current Visit: No (2) Cocaine dependence Current Visit: No (3) Nicotine dependence Current Visit: No (4) Bipolar II disorder Current Visit: No (5) Substance-induced sleep disorder Current Visit: No (6) s/p surgery for osteomyelitis left hip Current Visit: No (7) Acquired immune deficiency syndrome (AIDS) Current Visit: No Comment: non compliant with his medication (8) Anemia Current Visit: No (9) Asthma Current Visit: No (10) Essential hypertension Current Visit: No (11) Hepatitis C carrier Current Visit: No (12) Seizure Current Visit: No Initial treatment plan: 1) Start Seroquel 100 mg po HS and Vistaril 50 mg po Q 4hrs prn for anxiety. 2) Monitor progress
[2017-11-10] MEDS: PRENATAL VITAMINS W/ FOLIC ACID TABLET (FP) PO SCH (09:46)
[2017-11-10] MEDS: NICOTINE 14 MG/24 HOURS TOPICAL PATCH TD SCH (09:46)
[2017-11-10] MEDS: ESCITALOPRAM OXALATE 10 MG TABLET (FP) PO SCH (09:46)
[2017-11-10] MEDS: FERROUS SO4 325 MG TABLET (FP) PO SCH (09:46)
[2017-11-10] MEDS ORDERED: hydrOXYzine PAMOATE 50 MG CAPSULE (FP) PO PRN (09:50)
--- NOTE | 2017-11-10 16:25 | PN ---
S Progress Note (SOAP) Subjective: protracted opioid withdrawal sx, anxiety, body aches, fatigue, insomnia would like to restart hiv medications Objective: 11/10/17 16:23 Vital Signs - 24 hr 11/10/17 11/10/17 11/10/17 00:30 03:30 07:27 Temperature 98.2 F Pulse Rate 95 H Respiratory 20 18 18 Rate Blood Pressure 132/77 labs revveiwed with patient, cahectic, depressed affect Assessment: 11/10/17 16:23 HIV - will restart haart medications, start suboxone 2mg s/zL daily symptomatic relief of withdrawal sx. need an appt for f/u post discharge to adjust dose to effect. discussed risks and benefits and how to take meication with patient.
[2017-11-10] MEDS ORDERED: PT OWN MED DRAWER 7, Y5N ONE (16:42)
[2017-11-10] MEDS: PANTOPRAZOLE 40 MG TABLET (FP) PO SCH (18:14)
[2017-11-10] MEDS: BUPRENORPHINE/NALOXONE 2 MG/0.5 MG FILM PACKET SL SCH (18:14)
[2017-11-10] MEDS: EMTRICITABINE 200MG/TENOFOVIR 300MG PO SCH (19:21)
[2017-11-10] MEDS: DOLUTEGRAVIR SODIUM 50 MG TABLET PO SCH (19:21)
[2017-11-10] MEDS: AMITRIPTYLINE HCL 25 MG TABLET (FP) PO SCH (21:11)
[2017-11-10] MEDS: traZODone HCL 50 MG TABLET (FP) PO SCH (21:11)
[2017-11-10] MEDS: GABAPENTIN 100 MG CAPSULE (FP) PO SCH (21:11)
[2017-11-10] MEDS: QUEtiapine FUMARATE 100 MG TABLET (FP) PO SCH (21:11)
[2017-11-10] MEDS: NAPROXEN 500 MG TABLET (FP) PO SCH (21:11)
[2017-11-10] MEDS: THIAMINE HCL 100 MG TABLET (FP) PO SCH (21:11)
[2017-11-10] MEDS: CYCLOBENZAPRINE HCL 10 MG TABLET (FP) PO SCH (21:12)
[2017-11-10] MEDS: cloNIDine HCL 0.1 MG TABLET PO SCH (22:06)
[2017-11-11] MEDS: GABAPENTIN 100 MG CAPSULE (FP) PO SCH ×3 (06:22→21:29)
[2017-11-11] MEDS: CYCLOBENZAPRINE HCL 10 MG TABLET (FP) PO SCH ×3 (06:22→21:29)
[2017-11-11] MEDS: PRENATAL VITAMINS W/ FOLIC ACID TABLET (FP) PO SCH (09:35)
[2017-11-11] MEDS: NAPROXEN 500 MG TABLET (FP) PO SCH ×2 (09:35→21:29)
[2017-11-11] MEDS: PANTOPRAZOLE 40 MG TABLET (FP) PO SCH (09:35)
[2017-11-11] MEDS: FERROUS SO4 325 MG TABLET (FP) PO SCH (09:35)
[2017-11-11] MEDS: cloNIDine HCL 0.1 MG TABLET PO SCH ×2 (09:35→21:29)
[2017-11-11] MEDS: ESCITALOPRAM OXALATE 10 MG TABLET (FP) PO SCH (09:35)
[2017-11-11] MEDS: DOLUTEGRAVIR SODIUM 50 MG TABLET PO SCH (09:36)
[2017-11-11] MEDS: BUPRENORPHINE/NALOXONE 2 MG/0.5 MG FILM PACKET SL SCH (09:36)
[2017-11-11] MEDS: NICOTINE 14 MG/24 HOURS TOPICAL PATCH TD SCH (09:36)
[2017-11-11] MEDS: EMTRICITABINE 200MG/TENOFOVIR 300MG PO SCH (09:36)
[2017-11-11] MEDS: AMITRIPTYLINE HCL 25 MG TABLET (FP) PO SCH (21:29)
[2017-11-11] MEDS: traZODone HCL 50 MG TABLET (FP) PO SCH (21:29)
[2017-11-11] MEDS: QUEtiapine FUMARATE 100 MG TABLET (FP) PO SCH (21:29)
[2017-11-11] MEDS: THIAMINE HCL 100 MG TABLET (FP) PO SCH (21:29)
[2017-11-12] MEDS: GABAPENTIN 100 MG CAPSULE (FP) PO SCH ×3 (06:14→22:24)
[2017-11-12] MEDS: CYCLOBENZAPRINE HCL 10 MG TABLET (FP) PO SCH ×3 (06:14→22:24)
[2017-11-12] MEDS: PRENATAL VITAMINS W/ FOLIC ACID TABLET (FP) PO SCH (09:46)
[2017-11-12] MEDS: NAPROXEN 500 MG TABLET (FP) PO SCH ×2 (09:46→22:24)
[2017-11-12] MEDS: EMTRICITABINE 200MG/TENOFOVIR 300MG PO SCH (09:46)
[2017-11-12] MEDS: DOLUTEGRAVIR SODIUM 50 MG TABLET PO SCH (09:46)
[2017-11-12] MEDS: ESCITALOPRAM OXALATE 10 MG TABLET (FP) PO SCH (09:46)
[2017-11-12] MEDS: BUPRENORPHINE/NALOXONE 2 MG/0.5 MG FILM PACKET SL SCH (09:46)
[2017-11-12] MEDS: cloNIDine HCL 0.1 MG TABLET PO SCH ×2 (09:47→22:23)
[2017-11-12] MEDS: FERROUS SO4 325 MG TABLET (FP) PO SCH (09:47)
[2017-11-12] MEDS: NICOTINE 14 MG/24 HOURS TOPICAL PATCH TD SCH (09:47)
[2017-11-12] MEDS: PANTOPRAZOLE 40 MG TABLET (FP) PO SCH (09:47)
[2017-11-12] MEDS: AMITRIPTYLINE HCL 25 MG TABLET (FP) PO SCH (22:24)
[2017-11-12] MEDS: THIAMINE HCL 100 MG TABLET (FP) PO SCH (22:24)
[2017-11-12] MEDS: traZODone HCL 50 MG TABLET (FP) PO SCH (22:24)
[2017-11-12] MEDS: QUEtiapine FUMARATE 100 MG TABLET (FP) PO SCH (22:24)
[2017-11-13] MEDS: CYCLOBENZAPRINE HCL 10 MG TABLET (FP) PO SCH ×3 (06:02→21:57)
[2017-11-13] MEDS: GABAPENTIN 100 MG CAPSULE (FP) PO SCH ×3 (06:02→21:56)
[2017-11-13] MEDS: PRENATAL VITAMINS W/ FOLIC ACID TABLET (FP) PO SCH (09:00)
[2017-11-13] MEDS: ESCITALOPRAM OXALATE 10 MG TABLET (FP) PO SCH (09:01)
[2017-11-13] MEDS: DOLUTEGRAVIR SODIUM 50 MG TABLET PO SCH (09:01)
[2017-11-13] MEDS: FERROUS SO4 325 MG TABLET (FP) PO SCH (09:01)
[2017-11-13] MEDS: NICOTINE 14 MG/24 HOURS TOPICAL PATCH TD SCH (09:01)
[2017-11-13] MEDS: cloNIDine HCL 0.1 MG TABLET PO SCH ×2 (09:01→21:56)
[2017-11-13] MEDS: NAPROXEN 500 MG TABLET (FP) PO SCH ×2 (09:01→21:56)
[2017-11-13] MEDS: PANTOPRAZOLE 40 MG TABLET (FP) PO SCH (09:01)
[2017-11-13] MEDS: BUPRENORPHINE/NALOXONE 2 MG/0.5 MG FILM PACKET SL SCH (09:01)
[2017-11-13] MEDS: EMTRICITABINE 200MG/TENOFOVIR 300MG PO SCH (09:02)
[2017-11-13] MEDS: QUEtiapine FUMARATE 100 MG TABLET (FP) PO SCH (21:56)
[2017-11-13] MEDS: AMITRIPTYLINE HCL 25 MG TABLET (FP) PO SCH (21:56)
[2017-11-13] MEDS: traZODone HCL 50 MG TABLET (FP) PO SCH (21:56)
[2017-11-13] MEDS: THIAMINE HCL 100 MG TABLET (FP) PO SCH (21:57)
[2017-11-14] MEDS: CYCLOBENZAPRINE HCL 10 MG TABLET (FP) PO SCH ×3 (06:24→21:48)
[2017-11-14] MEDS: GABAPENTIN 100 MG CAPSULE (FP) PO SCH ×3 (06:24→21:48)
[2017-11-14] MEDS: ESCITALOPRAM OXALATE 10 MG TABLET (FP) PO SCH (09:55)
[2017-11-14] MEDS: PRENATAL VITAMINS W/ FOLIC ACID TABLET (FP) PO SCH (09:55)
[2017-11-14] MEDS: BUPRENORPHINE/NALOXONE 2 MG/0.5 MG FILM PACKET SL SCH (09:55)
[2017-11-14] MEDS: PANTOPRAZOLE 40 MG TABLET (FP) PO SCH (09:56)
[2017-11-14] MEDS: FERROUS SO4 325 MG TABLET (FP) PO SCH (09:56)
[2017-11-14] MEDS: cloNIDine HCL 0.1 MG TABLET PO SCH ×2 (09:56→21:50)
[2017-11-14] MEDS: EMTRICITABINE 200MG/TENOFOVIR 300MG PO SCH (09:56)
[2017-11-14] MEDS: NAPROXEN 500 MG TABLET (FP) PO SCH ×2 (09:56→21:48)
[2017-11-14] MEDS: DOLUTEGRAVIR SODIUM 50 MG TABLET PO SCH (09:56)
[2017-11-14] MEDS: NICOTINE 14 MG/24 HOURS TOPICAL PATCH TD SCH (10:47)
[2017-11-14] MEDS: traZODone HCL 50 MG TABLET (FP) PO SCH (21:48)
[2017-11-14] MEDS: QUEtiapine FUMARATE 100 MG TABLET (FP) PO SCH (21:48)
[2017-11-14] MEDS: AMITRIPTYLINE HCL 25 MG TABLET (FP) PO SCH (21:48)
[2017-11-14] MEDS: THIAMINE HCL 100 MG TABLET (FP) PO SCH (21:48)
[2017-11-15] MEDS: CYCLOBENZAPRINE HCL 10 MG TABLET (FP) PO SCH ×3 (06:32→21:13)
[2017-11-15] MEDS: GABAPENTIN 100 MG CAPSULE (FP) PO SCH ×3 (06:32→21:13)
[2017-11-15] MEDS: PRENATAL VITAMINS W/ FOLIC ACID TABLET (FP) PO SCH (09:29)
[2017-11-15] MEDS: ESCITALOPRAM OXALATE 10 MG TABLET (FP) PO SCH (09:29)
[2017-11-15] MEDS: BUPRENORPHINE/NALOXONE 2 MG/0.5 MG FILM PACKET SL SCH (09:29)
[2017-11-15] MEDS: FERROUS SO4 325 MG TABLET (FP) PO SCH (09:30)
[2017-11-15] MEDS: PANTOPRAZOLE 40 MG TABLET (FP) PO SCH (09:30)
[2017-11-15] MEDS: DOLUTEGRAVIR SODIUM 50 MG TABLET PO SCH (09:30)
[2017-11-15] MEDS: NICOTINE 14 MG/24 HOURS TOPICAL PATCH TD SCH (09:30)
[2017-11-15] MEDS: EMTRICITABINE 200MG/TENOFOVIR 300MG PO SCH (09:30)
[2017-11-15] MEDS: NAPROXEN 500 MG TABLET (FP) PO SCH ×2 (09:30→21:13)
[2017-11-15] MEDS: cloNIDine HCL 0.1 MG TABLET PO SCH ×2 (09:30→21:13)
[2017-11-15] MEDS: THIAMINE HCL 100 MG TABLET (FP) PO SCH (21:12)
[2017-11-15] MEDS: traZODone HCL 50 MG TABLET (FP) PO SCH (21:13)
[2017-11-15] MEDS: AMITRIPTYLINE HCL 25 MG TABLET (FP) PO SCH (21:13)
[2017-11-15] MEDS: QUEtiapine FUMARATE 100 MG TABLET (FP) PO SCH (21:13)
[2017-11-16] MEDS: CYCLOBENZAPRINE HCL 10 MG TABLET (FP) PO SCH ×3 (05:56→21:42)
[2017-11-16] MEDS: GABAPENTIN 100 MG CAPSULE (FP) PO SCH ×3 (05:56→21:42)
[2017-11-16] MEDS: BUPRENORPHINE/NALOXONE 2 MG/0.5 MG FILM PACKET SL SCH (09:49)
[2017-11-16] MEDS: NICOTINE 14 MG/24 HOURS TOPICAL PATCH TD SCH (09:49)
[2017-11-16] MEDS: FERROUS SO4 325 MG TABLET (FP) PO SCH (09:49)
[2017-11-16] MEDS: PRENATAL VITAMINS W/ FOLIC ACID TABLET (FP) PO SCH (09:49)
[2017-11-16] MEDS: NAPROXEN 500 MG TABLET (FP) PO SCH ×2 (09:49→21:42)
[2017-11-16] MEDS: cloNIDine HCL 0.1 MG TABLET PO SCH ×2 (09:50→21:42)
[2017-11-16] MEDS: PANTOPRAZOLE 40 MG TABLET (FP) PO SCH (09:50)
[2017-11-16] MEDS: DOLUTEGRAVIR SODIUM 50 MG TABLET PO SCH (09:50)
[2017-11-16] MEDS: ESCITALOPRAM OXALATE 10 MG TABLET (FP) PO SCH (09:50)
[2017-11-16] MEDS: EMTRICITABINE 200MG/TENOFOVIR 300MG PO SCH (09:50)
[2017-11-16] MEDS: QUEtiapine FUMARATE 100 MG TABLET (FP) PO SCH (21:42)
[2017-11-16] MEDS: traZODone HCL 50 MG TABLET (FP) PO SCH (21:42)
[2017-11-16] MEDS: AMITRIPTYLINE HCL 25 MG TABLET (FP) PO SCH (21:42)
[2017-11-16] MEDS: THIAMINE HCL 100 MG TABLET (FP) PO SCH (21:42)
[2017-11-17] MEDS: CYCLOBENZAPRINE HCL 10 MG TABLET (FP) PO SCH ×3 (05:58→21:31)
[2017-11-17] MEDS: GABAPENTIN 100 MG CAPSULE (FP) PO SCH ×3 (05:58→21:31)
[2017-11-17] MEDS: NAPROXEN 500 MG TABLET (FP) PO SCH ×2 (09:48→21:31)
[2017-11-17] MEDS: NICOTINE 14 MG/24 HOURS TOPICAL PATCH TD SCH (09:48)
[2017-11-17] MEDS: PANTOPRAZOLE 40 MG TABLET (FP) PO SCH (09:49)
[2017-11-17] MEDS: ESCITALOPRAM OXALATE 10 MG TABLET (FP) PO SCH (09:49)
[2017-11-17] MEDS: EMTRICITABINE 200MG/TENOFOVIR 300MG PO SCH (09:49)
[2017-11-17] MEDS: cloNIDine HCL 0.1 MG TABLET PO SCH ×2 (09:49→21:31)
[2017-11-17] MEDS: FERROUS SO4 325 MG TABLET (FP) PO SCH (09:49)
[2017-11-17] MEDS: DOLUTEGRAVIR SODIUM 50 MG TABLET PO SCH (09:49)
[2017-11-17] MEDS: PRENATAL VITAMINS W/ FOLIC ACID TABLET (FP) PO SCH (09:49)
[2017-11-17] MEDS: BUPRENORPHINE/NALOXONE 2 MG/0.5 MG FILM PACKET SL SCH (09:50)
[2017-11-17] MEDS: THIAMINE HCL 100 MG TABLET (FP) PO SCH (21:31)
[2017-11-17] MEDS: traZODone HCL 50 MG TABLET (FP) PO SCH (21:32)
[2017-11-17] MEDS: AMITRIPTYLINE HCL 25 MG TABLET (FP) PO SCH (21:32)
[2017-11-17] MEDS: QUEtiapine FUMARATE 100 MG TABLET (FP) PO SCH (21:32)
[2017-11-18] MEDS: CYCLOBENZAPRINE HCL 10 MG TABLET (FP) PO SCH ×3 (06:24→21:15)
[2017-11-18] MEDS: GABAPENTIN 100 MG CAPSULE (FP) PO SCH ×3 (06:24→21:15)
[2017-11-18] MEDS: PANTOPRAZOLE 40 MG TABLET (FP) PO SCH (09:35)
[2017-11-18] MEDS: cloNIDine HCL 0.1 MG TABLET PO SCH ×2 (09:35→21:15)
[2017-11-18] MEDS: BUPRENORPHINE/NALOXONE 2 MG/0.5 MG FILM PACKET SL SCH (09:35)
[2017-11-18] MEDS: PRENATAL VITAMINS W/ FOLIC ACID TABLET (FP) PO SCH (09:35)
[2017-11-18] MEDS: DOLUTEGRAVIR SODIUM 50 MG TABLET PO SCH (09:36)
[2017-11-18] MEDS: FERROUS SO4 325 MG TABLET (FP) PO SCH (09:36)
[2017-11-18] MEDS: EMTRICITABINE 200MG/TENOFOVIR 300MG PO SCH (09:36)
[2017-11-18] MEDS: NAPROXEN 500 MG TABLET (FP) PO SCH ×2 (09:36→21:16)
[2017-11-18] MEDS: ESCITALOPRAM OXALATE 10 MG TABLET (FP) PO SCH (09:36)
[2017-11-18] MEDS: NICOTINE 14 MG/24 HOURS TOPICAL PATCH TD SCH (10:51)
[2017-11-18] MEDS: THIAMINE HCL 100 MG TABLET (FP) PO SCH (21:15)
[2017-11-18] MEDS: QUEtiapine FUMARATE 100 MG TABLET (FP) PO SCH (21:15)
[2017-11-18] MEDS: traZODone HCL 50 MG TABLET (FP) PO SCH (21:15)
[2017-11-18] MEDS: AMITRIPTYLINE HCL 25 MG TABLET (FP) PO SCH (21:16)
[2017-11-19] MEDS: CYCLOBENZAPRINE HCL 10 MG TABLET (FP) PO SCH ×3 (05:56→21:16)
[2017-11-19] MEDS: GABAPENTIN 100 MG CAPSULE (FP) PO SCH ×3 (05:56→21:16)
[2017-11-19] MEDS: NAPROXEN 500 MG TABLET (FP) PO SCH ×2 (09:58→21:16)
[2017-11-19] MEDS: PANTOPRAZOLE 40 MG TABLET (FP) PO SCH (09:58)
[2017-11-19] MEDS: ESCITALOPRAM OXALATE 10 MG TABLET (FP) PO SCH (09:58)
[2017-11-19] MEDS: DOLUTEGRAVIR SODIUM 50 MG TABLET PO SCH (09:58)
[2017-11-19] MEDS: EMTRICITABINE 200MG/TENOFOVIR 300MG PO SCH (09:58)
[2017-11-19] MEDS: BUPRENORPHINE/NALOXONE 2 MG/0.5 MG FILM PACKET SL SCH (09:58)
[2017-11-19] MEDS: NICOTINE 14 MG/24 HOURS TOPICAL PATCH TD SCH (09:58)
[2017-11-19] MEDS: PRENATAL VITAMINS W/ FOLIC ACID TABLET (FP) PO SCH (09:58)
[2017-11-19] MEDS: FERROUS SO4 325 MG TABLET (FP) PO SCH (09:58)
[2017-11-19] MEDS: cloNIDine HCL 0.1 MG TABLET PO SCH ×2 (09:58→21:16)
--- NOTE | 2017-11-19 13:31 | PN ---
Psychiatric Progress Note Vital Signs: Vital Signs Period Temp Pulse Resp BP Sys/Rodgers Pulse Ox Last 24 Hr 97.6 F 87-92 18-20 109-115/72-79 Date of Session: 11/19/17 Chief Complaint:: Discharge Note HPI: Patient addressing OPoid and Cocaine Dependence comorbid with Nicotine Dependence, Bipolar Disorder and Substance-induced Sleep Disorder ROS: Anemia, HTN, Hep C, AIDS, Seizure Current Medications: Active Medications Generic Name Dose Route Start Last Admin Trade Name Freq PRN Reason Stop Dose Admin Acetaminophen 650 mg 11/04/17 15:58 Tylenol - PO Q4H PRN FEVER OR PAIN Al Hydroxide/Mg Hydroxide 30 ml 11/04/17 15:58 Mylanta Oral Suspension - PO Q6H PRN DYSPEPSIA Albuterol Sulfate 2 puff 11/04/17 15:59 Ventolin Hfa Inhaler - IH Q4H PRN ASTHMA Amitriptyline HCl 25 mg 11/10/17 22:00 11/18/17 21:16 Elavil - PO 25 mg HS TICO Administration Buprenorphine/Naloxone 1 each 11/10/17 18:15 11/19/17 09:58 Suboxone 2mg/0.5mg Sl Film - SL 1 each DAILY TICO Administration Clonidine 0.1 mg 11/10/17 22:00 11/19/17 09:58 Catapres - PO 0.1 mg BID TICO Administration Cyclobenzaprine HCl 10 mg 11/10/17 22:00 11/19/17 05:56 Flexeril - PO 10 mg TID TICO Administration Emtricitabine/Tenofovir 1 tab 11/10/17 18:15 11/19/17 09:58 Truvada PO 1 tab DAILY TICO Administration Escitalopram Oxalate 10 mg 11/05/17 10:00 11/19/17 09:58 Lexapro - PO 10 mg DAILY TICO Administration Eucalyptus/Menthol/Phenol/Sorbitol 1 each 11/04/17 15:58 Cepastat Lozenge - MM Q4H PRN SORE THROAT Ferrous Sulfate 325 mg 11/05/17 10:00 11/19/17 09:58 Feosol - PO 325 mg DAILY TICO Administration Gabapentin 100 mg 11/10/17 22:00 11/19/17 05:56 Neurontin - PO 100 mg TID TICO Administration Guaifenesin 10 ml 11/04/17 15:58 Robitussin Dm - PO Q6H PRN COUGH Hydroxyzine Pamoate 50 mg 11/10/17 09:50 Vistaril - PO Q4H PRN ANXIETY Loperamide HCl 4 mg 11/04/17 15:58 Imodium - PO Q6H PRN DIARRHEA Magnesium Citrate 300 ml 11/04/17 15:58 Citroma - PO Q48H PRN CONSTIPATION Magnesium Hydroxide 30 ml 11/04/17 15:58 Milk Of Magnesia - PO DAILY PRN CONSTIPATION Naproxen 500 mg 11/10/17 22:00 11/19/17 09:58 Naprosyn - PO 500 mg BID TICO Administration Nicotine 14 mg 11/05/17 10:00 11/19/17 09:58 Nicoderm Patch - TD 14 mg DAILY TICO Administration Nicotine Polacrilex 2 mg 11/04/17 15:58 Nicorette Gum - BUC Q2H PRN NICOTINE REPLACEMENT RX Pantoprazole Sodium 40 mg 11/10/17 18:15 11/19/17 09:58 Protonix - PO 40 mg DAILY TICO Administration Multivit/Folic Acid/Iron 1 tab 11/05/17 10:00 11/19/17 09:58 Vitamins (Sjr) - PO 1 tab DAILY TICO Administration Pseudoephedrine/Triprolidine 1 combo 11/04/17 15:58 Actifed - PO TID PRN NASAL CONGESTION Quetiapine Fumarate 100 mg 11/10/17 22:00 11/18/17 21:15 Seroquel - PO 100 mg HS TICO Administration Thiamine HCl 100 mg 11/04/17 22:00 11/18/17 21:15 Vitamin B1 - PO 100 mg HS TICO Administration Trazodone HCl 150 mg 11/09/17 22:00 11/18/17 21:15 Desyrel - PO 150 mg HS TICO Administration Current Side Effect: No Lab tests ordered: Yes Lab tests reviewed: Yes Provider note:: Patient will complete this program on 11/20/17. He has met his treatment goals and will continue to address his issues in outpatient treatment at [facility] at [address] [place] [address]. Therapy provided focusing on relapse preventionincluding support system, coping skillsutilization to maintain recovery. He responded well to Lexapro 10 mg po HS, Trazadone 150 mg po HS and Seroquel 100 mg po HS. Scripts for 30 days supply of these medications will be electronically transmitted to [facility] at [address] [place] [id number]. He is stable for discharge on 11/20/17 Total face to face time:: 35 Mental Status Exam - Mental Status Exam Alert and Oriented to: Time, Place, Person Cognitive Function: Fair Patient Appearance: Well Groomed Mood: Hopeful, Euthymic Affect: Appropriate Patient Behavior: Cooperative Speech Pattern: Clear Voice Loudness: Normal Thought Process: Intact, Goal Oriented Thought Disorder: Not Present Hallucinations: Denies Suicidal Ideation: Denies Homicidal Ideation: Denies Insight/Judgement: Fair Sleep: Well Appetite: Good Muscle strength/Tone: Normal Psychiatric Treatment Plan - Problem List (1) Opioid dependence Current Visit: No (2) Cocaine dependence Current Visit: No (3) Nicotine dependence Current Visit: No (4) Bipolar II disorder Current Visit: No (5) Substance-induced sleep disorder Current Visit: No (6) s/p surgery for osteomyelitis left hip Current Visit: No (7) Acquired immune deficiency syndrome (AIDS) Current Visit: No Comment: non compliant with his medication (8) Anemia Current Visit: No (9) Asthma Current Visit: No (10) Essential hypertension Current Visit: No (11) Hepatitis C carrier Current Visit: No (12) Seizure Current Visit: No Initial treatment plan: Patient will be discharged tomorrow and referred to [facility] for outpatient treatment
[2017-11-19] MEDS: AMITRIPTYLINE HCL 25 MG TABLET (FP) PO SCH (21:16)
[2017-11-19] MEDS: QUEtiapine FUMARATE 100 MG TABLET (FP) PO SCH (21:16)
[2017-11-19] MEDS: traZODone HCL 50 MG TABLET (FP) PO SCH (21:16)
[2017-11-19] MEDS: THIAMINE HCL 100 MG TABLET (FP) PO SCH (21:16)
[2017-11-20] MEDS: CYCLOBENZAPRINE HCL 10 MG TABLET (FP) PO SCH (06:45)
[2017-11-20] MEDS: GABAPENTIN 100 MG CAPSULE (FP) PO SCH (06:45)
[2017-11-20 06:52] VITALS: BP 119/89; PULSE 84; TEMP 97.3
[2017-11-20] MEDS: EMTRICITABINE 200MG/TENOFOVIR 300MG PO SCH (09:33)
[2017-11-20] MEDS: PANTOPRAZOLE 40 MG TABLET (FP) PO SCH (09:33)
[2017-11-20] MEDS: FERROUS SO4 325 MG TABLET (FP) PO SCH (09:33)
[2017-11-20] MEDS: DOLUTEGRAVIR SODIUM 50 MG TABLET PO SCH (09:33)
[2017-11-20] MEDS: PRENATAL VITAMINS W/ FOLIC ACID TABLET (FP) PO SCH (09:33)
[2017-11-20] MEDS: cloNIDine HCL 0.1 MG TABLET PO SCH (09:33)
[2017-11-20] MEDS: ESCITALOPRAM OXALATE 10 MG TABLET (FP) PO SCH (09:34)
[2017-11-20] MEDS: NAPROXEN 500 MG TABLET (FP) PO SCH (09:34)
[2017-11-20] MEDS: BUPRENORPHINE/NALOXONE 2 MG/0.5 MG FILM PACKET SL SCH (09:34)
[2017-11-20] MEDS: NICOTINE 14 MG/24 HOURS TOPICAL PATCH TD SCH (09:34)
== END 2017-11-20 09:45 | disposition home or self-care (01) | DRG 772 ==
LOC: YASAS 12:18 → Y3W 12:19
PROVIDERS: ADMIT Psychiatry & Neurology Psychiatry; ATTEND Psychiatry & Neurology Psychiatry
PROC: HZ42ZZZ Group Counseling for Substance Abuse Treatment, Cognitive-Behavioral (ICD-10-PCS; principal; 2017-11-04)
DX: F11.20 Opioid dependence, uncomplicated (principal); F14.20 Cocaine dependence, uncomplicated; F17.210 Nicotine dependence, cigarettes, uncomplicated; F31.81 Bipolar II disorder; F19.282 Other psychoactive substance dependence with psychoactive substance-induced sleep disorder; I10 Essential (primary) hypertension; B20 Human immunodeficiency virus [HIV] disease; B18.2 Chronic viral hepatitis C; D64.9 Anemia, unspecified; J45.909 Unspecified asthma, uncomplicated; Z86.69 Personal history of other diseases of the nervous system and sense organs; Z87.898 Personal history of other specified conditions; Z91.013 Allergy to seafood

== ENCOUNTER 2018-04-06 12:31 | Inpatient (IN) | payer OTHER ==
[2018-04-06 13:27] VITALS: BMI 18.1
--- NOTE | 2018-04-06 17:42 | HP ---
COWS - Scale Resting Pulse: 0= AL 80 or Below Sweatin=Flushed/Facial Moisture Restless Observation: 1= Difficult to Sit Still Pupil Size: 1= Pupils >than Normal Bone or Joint Aches: 1= Mild Discomfort Runny Nose/ Eye Tearin= Runny Nose/Eyes GI Upset > 30mins: 0= None Tremor Observation: 1= Tremor [place], Not Seen Yawning Observation: 2= >3x During Session Anxiety or Irritability: 2=Irritable/Anxious Goose Flesh Skin: 0=Smooth Skin COWS Score: 12 Admission [facility] Chief Complaint: "I feel sick" Allergies/Adverse Reactions: Allergies Allergy/AdvReac Type Severity Reaction Status Date / Time fish derived Allergy Severe Hives Verified 04/06/18 17:01 shellfish derived Allergy Severe Hives Verified 04/06/18 17:01 No Known Drug Allergies Allergy Unknown Verified 04/06/18 17:01 seafood Allergy Severe Hives Uncoded 04/06/18 17:01 History of Present Illness: 52 yo male with hx of intravenous heroin, crack / cocaine and nicotine dependence is here seeking detox. Reports occasional methadone use to prevent feeling ill. Denies link to methadone treatment program. PMHX: HIV+ on therapy , HTN, Hep C, asthma, OA left hip, depression, anxiety, bipolar. Denies suicidal / homicidal ideation. Denies hx of suicide attempts. Denies auditory or visual hallucinations. Denies hx of seizures, blackouts or over dose. Reports in the past has had hx of auditory hallucinations. Last detox and Rehab at [facility], October 2017. Longest period of sobriety 2 years while in [facility]. Search Terms: matt rankin, 1965 Search Date: 04/06/2018 05:41:09 PM This report was requested by: Jagruti Garcia | Reference #: [id number] Others' Prescriptions Patient Name: Matt Norwood Date: 1965 Address: [address] [place] [address] Sex: Male Rx Written Rx Dispensed Drug Quantity Days Supply Prescriber Name 02/18/2018 02/19/2018 suboxone 8 mg-2 mg sl film 60 30 Liliana Mckeon (SEWING MACHINE ATTACHMENT TESTER) 02/03/2018 02/06/2018 suboxone 8 mg-2 mg sl film 28 14 Liliana Mckeon (SEWING MACHINE ATTACHMENT TESTER) Patient Name: Matt Norwood Date: 1965 Address: [address] [place] [id number] Sex: Male Rx Written Rx Dispensed Drug Quantity Days Supply Prescriber Name 12/29/2017 12/29/2017 zolpidem tartrate 10 mg tablet 30 30 Nuris Kilgore ( SEWING MACHINE ATTACHMENT TESTER) 10/01/2017 10/01/2017 alprazolam 1 mg tablet 60 30 Nuris Kilgore (SEWING MACHINE ATTACHMENT TESTER) 10/01/2017 10/01/2017 zolpidem tartrate 10 mg tablet 30 30 Nuris Kilgore ( SEWING MACHINE ATTACHMENT TESTER) Patient Name: Matt Norwood Date: 1965 Address: [address] [place] [address] Sex: Male Rx Written Rx Dispensed Drug Quantity Days Supply Prescriber Name 12/04/2017 12/10/2017 suboxone 2 mg-0.5 mg sl film 30 30 Liliana Mckeon (SEWING MACHINE ATTACHMENT TESTER ) Patient Name: Matt Norwood Date: 1965 Address: [address] [place] [address] [address] [place] [address] Sex: Male Rx Written Rx Dispensed Drug Quantity Days Supply Prescriber Name 11/21/2017 11/21/2017 zolpidem tartrate 10 mg tablet 30 30 Nuris Kilgore ( SEWING MACHINE ATTACHMENT TESTER) 11/21/2017 11/21/2017 suboxone 8 mg-2 mg sl film 14 14 Liliana Mckeon (SEWING MACHINE ATTACHMENT TESTER) 08/29/2017 08/29/2017 zolpidem tartrate 10 mg tablet 30 30 Nuris Kilgore ( SEWING MACHINE ATTACHMENT TESTER) 08/29/2017 08/29/2017 alprazolam 1 mg tablet 60 30 Nuris Kilgore (SEWING MACHINE ATTACHMENT TESTER) 07/30/2017 07/30/2017 zolpidem tartrate 10 mg tablet 30 30 Nuris Kilgore ( SEWING MACHINE ATTACHMENT TESTER) 07/30/2017 07/30/2017 alprazolam 1 mg tablet 60 30 Nuris Kilgore (SEWING MACHINE ATTACHMENT TESTER) 07/02/2017 07/02/2017 zolpidem tartrate 10 mg tablet 30 30 Nuris Kilgore ( SEWING MACHINE ATTACHMENT TESTER) 07/02/2017 07/02/2017 alprazolam 1 mg tablet 30 10 Jame Exam Limitations: No Limitations - Ebola screening Have you traveled outside of the country in the last 21 days: No Have you had contact with anyone from an Ebola affected area: No Have you been sick,other than usual withdrawal symptoms: No Do you have a fever: No - Review of Systems Constitutional: Chills, Loss of Appetite, Changes in sleep, Weight Stable (20 lb weight loss over 6 months) EENT: reports: Blurred Vision (uses glasses), Other (runny nose) Respiratory: reports: SOB with Exertion (walking up steps, walking 2-3 blocks) Cardiac: reports: No Symptoms Reported GI: reports: Poor Appetite, Poor Fluid Intake : reports: No Symptoms Reported Musculoskeletal: reports: Joint Pain Integumentary: reports: Pruritus (attributes to dry skin) Neuro: reports: No Symptoms reported Endocrine: reports: Excessive Sweating, Increased Thirst, Change in Weight Hematology: reports: See HPI Psychiatric: reports: Orientated x3, Anxious Other Systems: Reviewed and Negative Patient History - Patient Medical History Hx Anemia: No Hx Asthma: Yes (Pt is on MDI.) Hx Chronic Obstructive Pulmonary Disease (COPD): No Hx Cancer: No Hx Cardiac Disorders: No Hx Congestive Heart Failure: No Hx Hypertension: Yes (on meds.) Hx Hypercholesterolemia: No Hx Pacemaker: No HX Cerebrovascular Accident: No Hx Seizures: Yes (withdrawal related. last was 6 yrs ago) Hx Dementia: No Hx Diabetes: No Hx Gastrointestinal Disorders: No Hx Liver Disease: Yes (Hep C ) Hx Genitourinary Disorders: No Hx Sexually Transmitted Disorders: Yes (syphillis, HIV) Hx Renal Disease (ESRD): No Hx Thyroid Disease: No Hx Human Immunodeficiency Virus (HIV): Yes (since 1991/ non compliant with medication) Hx Hepatitis C: Yes (since 2003, no tx) Hx Depression: Yes Hx Suicide Attempt: No Hx Bipolar Disorder: Yes (non compliance with med) Hx Schizophrenia: No - Patient Surgical History Past Surgical History: Yes Hx Neurologic Surgery: No Hx Cataract Extraction: No Hx Cardiac Surgery: No Hx Lung Surgery: No Hx Breast Surgery: No Hx Breast Biopsy: No Hx Abdominal Surgery: No Hx Appendectomy: No Hx Cholecystectomy: No Hx Genitourinary Surgery: No Hx Section: No Hx Orthopedic Surgery: Yes (surgery for osteomyelitis left hip in 1983,1986) Other Surgical History: ambulation with cane Anesthesia Reaction: No - PPD History Previous Implant?: Yes Documented Results: Negative w/proof Implanted On Prior [facility] Admission?: Yes Date: 11/01/17 Results: 0 mm PPD to be Administered?: No - Reproductive History Patient is a Female of Child Bearing Age (11 -55 yrs old): No - Smoking Cessation Smoking history: Current every day smoker Have you smoked in the past 12 months: Yes Aproximately how many cigarettes per day: 5 Hx Chewing Tobacco Use: No Initiated information on smoking cessation: Yes 'Breaking Loose' booklet given: 04/06/18 - Substance & Tx. History Hx Alcohol Use: No Hx Substance Use: Yes Substance Use Type: Cocaine, Heroin Hx Substance Use Treatment: Yes ([facility] October 2017) - Substances Abused Heroin Route: Injection Frequency: Daily Amount used: 2-3 bags Age of first use: 16 Date of Last Use: 04/06/18 Crack Route: Smoking Frequency: Daily Amount used: 2-3 bags Age of first use: 23 Date of Last Use: 04/05/18 Family Disease History - Family Disease History Family Disease History: Diabetes: Mother (), Other: Father () Admission Physical Exam [facility] - Vital Signs Vital Signs: Vital Signs - 24 hr 04/06/18 13:22 Pulse Rate 78 Respiratory 18 Rate Blood Pressure 106/73 - Physical General Appearance: Yes: Disheveled, Thin, Anxious HEENTM: Yes: EOMI, Hearing grossly Normal, Normal ENT Inspection, Normocephalic , Normal Voice, AKANKSHA, Pharynx Normal, Tm's normal, Other (poor dentition) Respiratory: Yes: Chest Non-Tender, Lungs Clear, Normal Breath Sounds, No Respiratory Distress, No Accessory Muscle Use Neck: Yes: No masses,lesions,Nodules, Trachea in good position Breast: Yes: Breast Exam Deferred Cardiology: Yes: Regular Rhythm, Regular Rate Abdominal: Yes: Normal Bowel Sounds, Non Tender, Flat Genitourinary: Yes: Within Normal Limits Back: Yes: Normal Inspection Musculoskeletal: Yes: Back pain Extremities: Yes: Normal Capillary Refill, Normal Inspection, Normal Range of Motion, Non-Tender Neurological: Yes: senior office support assistant sosa II-XII NML intact, Fully Oriented, Alert, Motor Strength 5/5, Depressed Affect Integumentary: Yes: Normal Color, Warm, Diaphoresis Lymphatic: Yes: Within Normal Limits - Diagnostic (1) Psychiatric disorder Current Visit: Yes Status: Suspected (2) Weight decreased Current Visit: Yes Status: Active (3) Cocaine dependence Current Visit: Yes Status: Acute (4) Opioid dependence with withdrawal Current Visit: Yes Status: Acute (5) Acquired immune deficiency syndrome (AIDS) Current Visit: Yes Status: Chronic Comment: non compliant with his medication (6) Anemia Current Visit: Yes Status: Chronic Qualifiers: Anemia type: unspecified type Qualified Code(s): D64.9 - Anemia, unspecified (7) Asthma Current Visit: Yes Status: Chronic (8) Essential hypertension Current Visit: Yes Status: Chronic (9) Hepatitis C carrier Current Visit: Yes Status: Chronic (10) Nicotine dependence Current Visit: Yes Status: Chronic Qualifiers: Nicotine product type: cigarettes (11) IV drug user Current Visit: Yes Status: Acute Cleared for Admission S - Detox or Rehab [facility] Level of Care: Medically Managed Detox Regimen/Protocol: Methadone [facility] Breath Alcohol Content Breath Alcohol Content: 0 Urine Drug Screen - Results Drug Screen Negative: No Urine Drug Screen Results: BENITO-Cocaine, OPI-Opiates, MTD-Methadone
[2018-04-06] MEDS ORDERED: MAGNESIUM CITRATE 300 ML BOTTLE PO PRN (17:54)
[2018-04-06] MEDS ORDERED: NICOTINE POLACRILEX 2 MG GUM BC PRN (17:54)
[2018-04-06] MEDS ORDERED: P-EPHED 60MG/TRIPROLIDI 2.5MG TABLET PO PRN (17:54)
[2018-04-06] MEDS ORDERED: ACETAMINOPHEN 325 MG TABLET (FP) PO PRN (17:54)
[2018-04-06] MEDS ORDERED: METHADONE HCL 10 MG TABLET (FOR DETOX USE ONLY) PO ONE ×2 (17:54→23:00)
[2018-04-06] MEDS ORDERED: LOPERAMIDE HCL 2 MG CAPSULE PO PRN (17:54)
[2018-04-06] MEDS ORDERED: guaiFENesin/D-METHORPHAN HB 10 ML UNIT-DOSE CUPS PO PRN (17:54)
[2018-04-06] MEDS ORDERED: MAGNESIUM HYDROX 2400MG/30ML ORAL SUSPENSION 30 ML CUP PO PRN (17:54)
[2018-04-06] MEDS ORDERED: ALBUTEROL SO4 18 GM HFA INHALER IH PRN (17:54)
[2018-04-06] MEDS ORDERED: MENTHOL/PHENOL 1 EACH UD MM PRN (17:54)
[2018-04-06] MEDS ORDERED: MAG HYDROX/AL HYDROX/SIMETH 30 ML UNIT-DOSE CUP PO PRN (17:54)
[2018-04-06] MEDS ORDERED: ALBUTEROL SO4 0.083% IH SOL 2.5 MG/3 ML VIAL.NEB. NEB PRN (17:57)
[2018-04-06] MEDS: diazePAM 5 MG TABLET PO PRN (19:09)
[2018-04-06] MEDS ORDERED: MELATONIN 5 MG TABLETS PO PRN (22:00)
[2018-04-06] MEDS: BACLOFEN 10 MG TABLET (FP) PO SCH (22:12)
[2018-04-06] MEDS: THIAMINE HCL 100 MG TABLET (FP) PO SCH (22:12)
[2018-04-06] MEDS: NAPROXEN 500 MG TABLET (FP) PO SCH (22:12)
[2018-04-06 23:03] LABS: URINE APPEARANCE CLEAR; URINE BILIRUBIN NEGATIVE (<2.0 mg/dL); URINE COLOR YELLOW; URINE GLUCOSE (UA) NEGATIVE (NEGATIVE); URINE KETONE NEGATIVE (NEGATIVE); URINE LEUK ESTERASE NEGATIVE (NEGATIVE); URINE NITRITE NEGATIVE (NEGATIVE); URINE PROTEIN NEGATIVE (NEGATIVE)
[2018-04-07] MEDS: diazePAM 5 MG TABLET PO PRN ×2 (09:25→22:14)
[2018-04-07] MEDS ORDERED: PATIENT'S OWN MEDICATION (NON-FORMULARY) (Lisinopril/Hydrochlorothiazide [Lisinopril-Hctz PO SCH (10:00)
[2018-04-07] MEDS ORDERED: METHADONE HCL 10 MG TABLET (FOR DETOX USE ONLY) PO ONE (10:00)
[2018-04-07 10:12] LABS: HEMATOCRIT 27.6 % (35.4-49); MCH 31.2 pg (25.7-33.7); MCHC 32.7 g/dl (32.0-35.9); MEAN CELL VOLUME 95.5 fl (80-96); PLATELET COUNT 92 K/MM3 (134-434); RDW 15.6 % (11.9-15.9); WHITE BLOOD COUNT 2.7 K/mm3 (4.0-10.0)
[2018-04-07] MEDS: NAPROXEN 500 MG TABLET (FP) PO SCH ×2 (10:17→22:14)
[2018-04-07] MEDS: BACLOFEN 10 MG TABLET (FP) PO SCH ×2 (10:17→22:14)
[2018-04-07] MEDS: LISINOPRIL 20 MG TABLET (FP) PO SCH (10:17)
[2018-04-07] MEDS: PRENATAL VITAMINS W/ FOLIC ACID TABLET (FP) PO SCH (10:17)
[2018-04-07] MEDS: HYDROCHLOROTHIAZIDE 25 MG TABLET (FP) PO SCH (10:17)
[2018-04-07] MEDS: NICOTINE 14 MG/24 HOURS TOPICAL PATCH TD SCH (10:21)
[2018-04-07 10:25] LABS: ANION GAP 9 (8-16); BLOOD UREA NITROGEN 34 mg/dL (7-18); CHLORIDE 116 mmol/L (98-107); CO2 20 mmol/L (21-32); GLUCOSE,RANDOM 91 mg/dL (74-106); SGPT/ALT 74 U/L (12-78); SODIUM 145 mmol/L (136-145)
[2018-04-07 10:31] LABS: ALK PHOS 128 U/L (45-117); BILIRUBIN,TOTAL 0.3 mg/dL (0.2-1.0); CREATININE 1.3 mg/dL (0.7-1.3); TOT PROT 6.6 g/dl (6.4-8.2)
[2018-04-07 10:34] LABS: POTASSIUM 5.9 mmol/L (3.5-5.1); SGOT/AST 105 U/L (15-37)
--- NOTE | 2018-04-07 11:39 | PN ---
BHS COWS - Scale Resting Pulse: 1= AL 81-100 Sweatin= Chills/Flushing Restless Observation: 3= Extraneous Movement Pupil Size: 0= Normal to Room Light Bone or Joint Aches: 4=Acute Joint/Muscle Pain Runny Nose/ Eye Tearin= Nasal Congestion GI Upset > 30mins: 1= Stomach Cramp Tremor Observation of Outstretched Hands: 2= Slight Tremor Visible Yawning Observation: 1= 1-2x During Session Anxiety or Irritability: 2=Irritable/Anxious Goose Flesh Skin: 0=Smooth Skin COWS Score: 16 BHS Progress Note (SOAP) Subjective: ANXIETY,CHILLS,FATIGUE. DENIES NAUSEA,VOMITING OR CHEST DISCOMFORT. Objective: 04/07/18 11:35 Vital Signs 04/07/18 04/07/18 06:14 09:06 Temperature 96.8 F L 97.9 F Pulse Rate 77 92 H Respiratory 16 16 Rate Blood Pressure 93/56 106/73 Laboratory Tests 04/06/18 04/07/18 04/07/18 22:49 06:00 06:00 WBC 2.7 L RBC 2.90 L D Hgb 9.0 L D Hct 27.6 L D MCV 95.5 MCH 31.2 D MCHC 32.7 RDW 15.6 Plt Count 92 L MPV 9.0 Sodium 145 Potassium 5.9 H D Chloride 116 H Carbon Dioxide 20 L D Anion Gap 9 BUN 34 H D Creatinine 1.3 D Creat Clearance w eGFR 58.43 Random Glucose 91 Calcium 8.0 L Total Bilirubin 0.3 AST 105 H D ALT 74 D Alkaline Phosphatase 128 H Total Protein 6.6 Albumin 3.0 L Urine Color Yellow Urine Appearance Clear Urine pH 5.0 Ur Specific [place] 1.018 Urine Protein Negative Urine Glucose (UA) Negative Urine Ketones Negative Urine Blood Negative Urine Nitrite Negative Urine Bilirubin Negative Urine Urobilinogen 2.0 Ur Leukocyte Esterase Negative LABS NOTED. EKG:NSR NORMAL ALEXANDER Assessment: 04/07/18 11:39 WITHDRAWAL SX Plan: CONTINUE DETOX EXPLAINED TO PT TO INCREASE PO FLUIDS. REPORT ANY DISCOMFORT TO THE NURSE. PITCHER GIVEN TO PATIENT AT BEDSIDE AT 1:50 PM BY GAIL FIELD.
[2018-04-07] MEDS ORDERED: FERROUS SO4 325 MG TABLET (FP) PO SCH (12:00)
--- NOTE | 2018-04-07 12:01 | EKG ---
Test Reason : Blood Pressure : / mmHG Vent. Rate : 082 BPM Atrial Rate : 082 BPM P-R Int : 130 ms QRS Dur : 076 ms QT Int : 380 ms P-R-T Axes : 065 050 056 degrees QTc Int : 443 ms NORMAL SINUS RHYTHM NORMAL ECG WHEN COMPARED WITH ECG OF 30-OCT-2017 19:13, NO SIGNIFICANT CHANGE WAS FOUND Confirmed by MD CHARU, MYCHAL ([id number]) on 04/07/2018 12:01:05 PM Referred By: Confirmed By:MYCHAL BOX MD
[2018-04-07] MEDS: FERROUS SO4 325 MG TABLET (FP) PO SCH ×2 (15:49→19:29)
--- NOTE | 2018-04-07 17:54 | CONSULT ---
[facility] Psychiatric Consult - Data Date of interview: 04/07/18 Admission source: [facility] Identifying data: Readmission to [facility] for this 52 y/o male seeking detox treatment on 3 for heroin,cocaine (crack) and cannabis dependence.Patient is single without dependents,domiciled,unemployed and supported on SSI benefits. Substance Abuse History: Confirmed by patient in this interview.Smoking history : Current every day smoker. Have you smoked in the past 12 months: Yes. Aproximately how many cigarettes per day: 5. Hx Chewing Tobacco Use: No. Initiated information on smoking cessation: Yes. 'Breaking Loose' booklet given : 04/06/18. - Substance & Tx. History. Hx Alcohol Use: No. Hx Substance Use: Yes. Substance Use Type: Cocaine, Heroin. Hx Substance Use Treatment: Yes ( [facility] October 2017). - Substances Abused. Heroin. Route: Injection. Frequency: Daily. Amount used: 2-3 bags. Age of first use: 16. Date of Last Use: 04/06/18. Crack. Route: Smoking. Frequency: Daily. Amount used: 2-3 bags. Age of first use: 23. Date of Last Use: 04/05/18 Medical History: HIV infection since 1991 (on HAART medications),orthosurgery for osteomyelitis of left hip (history),bronchial asthma,hypertension,withdrawal -related seizures,hepatitis C,cachexia and antecedent of syphilis (treated). Psychiatric History: No reported history of psychiatric hospitalizations.Diagnosed, however, with Bipolar Disorder and Anxiety Disorder.Patient does not remember the names of his psychotropic medications but records indicate recent management on a regimen of lexapro + zolpidem + xanax.Previously tried on valproate,olanzapine and aripriprazole.Mr Norwood is currently followed at the [facility] in the [place] (medical + psychiatric services).Patient denies history of suicide attempts. Physical/Sexual Abuse/Trauma History: Patient denies. Additional Comment: Urine Drug Screen Results: BENITO-Cocaine, OPI-Opiates, MTD- Methadone.Noted. Mental Status Exam - Mental Status Exam Alert and Oriented to: Time, Place, Person Cognitive Function: Grossly Intact Patient Appearance: Disheveled (thin habitus ; patient appears emaciated) Mood: Nervous, Withdrawn Affect: Mood Congruent, Constricted Patient Behavior: Fatigued, Appropriate, Cooperative Speech Pattern: Clear, Appropriate Voice Loudness: Normal Thought Process: Goal Oriented Thought Disorder: Not Present Hallucinations: Denies Suicidal Ideation: Denies Homicidal Ideation: Denies Insight/Judgement: Poor Sleep: Poorly, Difficulty falling asleep Appetite: Poor, Weight loss (cachectic) Muscle strength/Tone: Normal Gait/Station: Normal Psychiatric Findings - Problem List ([place] 1, 2,3) (1) Opioid dependence with withdrawal Current Visit: Yes Status: Acute (2) Cocaine dependence Current Visit: Yes Status: Acute (3) Nicotine dependence Current Visit: Yes Status: Acute Qualifiers: Nicotine product type: cigarettes Substance use status: in withdrawal Qualified Code(s): F17.213 - Nicotine dependence, cigarettes, with withdrawal (4) Substance induced mood disorder Current Visit: Yes Status: Acute (5) History of bipolar disorder Current Visit: Yes Status: Chronic (6) Insomnia Current Visit: Yes Status: Acute - Initial Treatment Plan Initial Treatment Plan: Psychoeducation.Sleep hygiene.Records revisited.Detoxification in progress.Medications verified via review of pharmacy claims of 03/03/18 at [facility] (trazodone 150 mg # 60/30 days + seroquel 100 mg # 30/30 days).In view of this patient's habitus and concomitant medications, will resume seroquel at 100 mg po hs + trazodone 50 mg po hs ( markedly reduced).Side effects/benefits of both drugs are discussed with the patient,which includes the risk of metabolic syndrome,oversedation / falls, orthostasis and priapism.Mr Norwood verbalizes his agreement to this plan of care.Observation.
[2018-04-07] MEDS: traZODone HCL 50 MG TABLET (FP) PO SCH (22:14)
[2018-04-07] MEDS: QUEtiapine FUMARATE 100 MG TABLET (FP) PO SCH (22:14)
[2018-04-07] MEDS: THIAMINE HCL 100 MG TABLET (FP) PO SCH (22:14)
[2018-04-08] MEDS: FERROUS SO4 325 MG TABLET (FP) PO SCH ×3 (08:05→17:55)
[2018-04-08] MEDS ORDERED: METHADONE HCL 5 MG TABLET (FOR DETOX USE ONLY) PO ONE (10:00)
[2018-04-08 10:15] LABS: HEMATOCRIT 27.8 % (35.4-49); HEMOGLOBIN 9.2 GM/dL (11.7-16.9); MCH 31.6 pg (25.7-33.7); MCHC 33.2 g/dl (32.0-35.9); MEAN PLT VOLUME 9.6 fl (7.5-11.1); PLATELET COUNT 84 K/MM3 (134-434); RBC 2.92 M/mm3 (4.00-5.60); RDW 15.8 % (11.9-15.9); WHITE BLOOD COUNT 2.6 K/mm3 (4.0-10.0)
[2018-04-08 10:17] LABS: ALBUMIN 2.3 g/dl (3.4-5.0); ANION GAP 3 (8-16); BLOOD UREA NITROGEN 26 mg/dL (7-18); CALCIUM 7.6 mg/dL (8.5-10.1); CHLORIDE 113 mmol/L (98-107); CO2 28 mmol/L (21-32); GLUCOSE,RANDOM 80 mg/dL (74-106); POTASSIUM 4.9 mmol/L (3.5-5.1); SODIUM 144 mmol/L (136-145)
[2018-04-08 10:21] LABS: ALK PHOS 120 U/L (45-117); BILIRUBIN,TOTAL 0.5 mg/dL (0.2-1.0); SGOT/AST 49 U/L (15-37); SGPT/ALT 44 U/L (12-78); TOT PROT 5.3 g/dl (6.4-8.2)
[2018-04-08] MEDS: PRENATAL VITAMINS W/ FOLIC ACID TABLET (FP) PO SCH (10:54)
[2018-04-08] MEDS: NAPROXEN 500 MG TABLET (FP) PO SCH ×2 (10:54→22:09)
[2018-04-08] MEDS: BACLOFEN 10 MG TABLET (FP) PO SCH ×2 (10:54→22:09)
[2018-04-08] MEDS: HYDROCHLOROTHIAZIDE 25 MG TABLET (FP) PO SCH (10:55)
[2018-04-08] MEDS: LISINOPRIL 20 MG TABLET (FP) PO SCH (10:56)
[2018-04-08] MEDS: NICOTINE 14 MG/24 HOURS TOPICAL PATCH TD SCH (10:56)
--- NOTE | 2018-04-08 12:00 | PN ---
BHS COWS - Scale Resting Pulse: 0= [place] 80 or Below Sweatin= Chills/Flushing Restless Observation: 3= Extraneous Movement Pupil Size: 2= Moderately Dilated Bone or Joint Aches: 1= Mild Discomfort Runny Nose/ Eye Tearin= Nasal Congestion GI Upset > 30mins: 0= None Tremor Observation of Outstretched Hands: 1= Tremor [place], Not Seen Yawning Observation: 1= 1-2x During Session Anxiety or Irritability: 2=Irritable/Anxious Goose Flesh Skin: 0=Smooth Skin COWS Score: 12 BHS Progress Note (SOAP) Subjective: ANXIETY,CHILLS,FATIGUE, CACHECTIC APPEARANCE. Objective: 04/08/18 12:01 Vital Signs 04/08/18 04/08/18 04/08/18 06:19 06:30 09:44 Temperature 96.7 F L 96.1 F L Pulse Rate 76 77 Respiratory 16 18 16 Rate Blood Pressure 96/54 99/71 Assessment: 04/08/18 12:02 WITHDRAWAL SX Plan: CONTINUE DETOX CONTINUE TO ENCOURAGE PO FLUIDS INTAKE DIETARY CONSULT
[2018-04-08] MEDS: THIAMINE HCL 100 MG TABLET (FP) PO SCH (22:09)
[2018-04-08] MEDS: QUEtiapine FUMARATE 100 MG TABLET (FP) PO SCH (22:09)
[2018-04-08] MEDS: traZODone HCL 50 MG TABLET (FP) PO SCH (22:09)
[2018-04-09] MEDS: FERROUS SO4 325 MG TABLET (FP) PO SCH ×3 (07:56→17:45)
[2018-04-09] MEDS: BACLOFEN 10 MG TABLET (FP) PO SCH ×2 (09:20→22:06)
[2018-04-09] MEDS: NAPROXEN 500 MG TABLET (FP) PO SCH ×2 (09:20→22:06)
[2018-04-09] MEDS: diazePAM 5 MG TABLET PO PRN (09:20)
[2018-04-09] MEDS: PRENATAL VITAMINS W/ FOLIC ACID TABLET (FP) PO SCH (09:20)
[2018-04-09] MEDS ORDERED: METHADONE HCL 5 MG TABLET (FOR DETOX USE ONLY) PO ONE (10:00)
[2018-04-09] MEDS: LISINOPRIL 20 MG TABLET (FP) PO SCH (10:42)
[2018-04-09] MEDS: HYDROCHLOROTHIAZIDE 25 MG TABLET (FP) PO SCH (10:42)
[2018-04-09] MEDS: NICOTINE 14 MG/24 HOURS TOPICAL PATCH TD SCH (10:42)
--- NOTE | 2018-04-09 11:11 | PN ---
BHS Progress Note (SOAP) Subjective: PT C/O RESTLESSNESS,ANXIETY,CHILLS,INTERMITTENT SLEEP, FATIGUE. Objective: 04/09/18 11:07 Vital Signs 04/09/18 04/09/18 04/09/18 03:30 05:57 06:30 Temperature 96.3 F L Pulse Rate 66 Respiratory 18 18 18 Rate Blood Pressure 103/68 04/09/18 09:25 Temperature 96.8 F L Pulse Rate 72 Respiratory 16 Rate Blood Pressure 103/73 Laboratory Tests 04/06/18 04/07/18 04/07/18 22:49 06:00 06:00 WBC 2.7 L RBC 2.90 L D Hgb 9.0 L D Hct 27.6 L D MCV 95.5 MCH 31.2 D MCHC 32.7 RDW 15.6 Plt Count 92 L MPV 9.0 Sodium 145 Potassium 5.9 H D Chloride 116 H Carbon Dioxide 20 L D Anion Gap 9 BUN 34 H D Creatinine 1.3 D Creat Clearance w eGFR 58.43 Random Glucose 91 Calcium 8.0 L Total Bilirubin 0.3 AST 105 H D ALT 74 D Alkaline Phosphatase 128 H Total Protein 6.6 Albumin 3.0 L Urine Color Yellow Urine Appearance Clear Urine pH 5.0 Ur Specific [place] 1.018 Urine Protein Negative Urine Glucose (UA) Negative Urine Ketones Negative Urine Blood Negative Urine Nitrite Negative Urine Bilirubin Negative Urine Urobilinogen 2.0 Ur Leukocyte Esterase Negative RPR Titer 04/07/18 04/08/18 04/08/18 06:00 07:30 07:30 WBC 2.6 L RBC 2.92 L Hgb 9.2 L Hct 27.8 L MCV 95.0 MCH 31.6 MCHC 33.2 RDW 15.8 Plt Count 84 L MPV 9.6 Sodium 144 Potassium 4.9 Chloride 113 H Carbon Dioxide 28 D Anion Gap 3 L BUN 26 H D Creatinine 1.0 D Creat Clearance w eGFR > 60 Random Glucose 80 Calcium 7.6 L Total Bilirubin 0.5 D AST 49 H D ALT 44 D Alkaline Phosphatase 120 H Total Protein 5.3 L Albumin 2.3 L D Urine Color Urine Appearance Urine pH Ur Specific [place] Urine Protein Urine Glucose (UA) Urine Ketones Urine Blood Urine Nitrite Urine Bilirubin Urine Urobilinogen Ur Leukocyte Esterase RPR Titer Nonreactive LABS NOTED Assessment: 04/09/18 11:08 WITHDRAWAL SX Plan: CONTINUE DETOX INCREASE PO FLUIDS DECREASE LISINOPRIL TO 10 MG PO DAILY HOLD BP MEDS IF HYPOTENSIVE
[2018-04-09] MEDS: LISINOPRIL 10 MG TABLET (FP) PO SCH (12:42)
[2018-04-09] MEDS: THIAMINE HCL 100 MG TABLET (FP) PO SCH (22:06)
[2018-04-09] MEDS: QUEtiapine FUMARATE 100 MG TABLET (FP) PO SCH (22:06)
[2018-04-09] MEDS: traZODone HCL 50 MG TABLET (FP) PO SCH (22:06)
[2018-04-09] MEDS: hydrOXYzine PAMOATE 50 MG CAPSULE (FP) PO PRN (22:09)
[2018-04-10] MEDS: hydrOXYzine PAMOATE 50 MG CAPSULE (FP) PO PRN (02:55)
[2018-04-10] MEDS: FERROUS SO4 325 MG TABLET (FP) PO SCH ×3 (08:05→18:10)
[2018-04-10] MEDS ORDERED: METHADONE HCL 10 MG TABLET (FOR DETOX USE ONLY) PO ONE (10:00)
[2018-04-10] MEDS: PRENATAL VITAMINS W/ FOLIC ACID TABLET (FP) PO SCH (10:40)
[2018-04-10] MEDS: HYDROCHLOROTHIAZIDE 25 MG TABLET (FP) PO SCH (10:40)
[2018-04-10] MEDS: LISINOPRIL 10 MG TABLET (FP) PO SCH (10:40)
[2018-04-10] MEDS: BACLOFEN 10 MG TABLET (FP) PO SCH ×2 (10:40→22:10)
[2018-04-10] MEDS: NAPROXEN 500 MG TABLET (FP) PO SCH ×2 (10:40→22:10)
[2018-04-10] MEDS: NICOTINE 14 MG/24 HOURS TOPICAL PATCH TD SCH (10:41)
--- NOTE | 2018-04-10 12:14 | PN ---
BHS Progress Note (SOAP) Subjective: PT IS OOB AMBULATING ON UNIT. ANXIOUS AND DEMANDING FOR VALIUM AND METHADONE NOW. PT WAS OFFERED VISTARIL AT THE MOMENT BUT REFUSES SAYING "IT DOESN'T DO ANYTHING. ALERT O X 3. PT REFUSED TO DO VITAL SIGNS. PROCESS COACH HAS EXPLAINED TO PATIENT THE NEED TO ALLOW FOR VITAL SIGNS MONITORING NECESSARY TO BE MEDICATED AMONG OTHER REASONS. Objective: 04/10/18 12:13 Vital Signs 04/10/18 09:49 Temperature 96.0 F L Pulse Rate 81 Respiratory 20 Rate Blood Pressure 129/88 Laboratory Tests 04/06/18 04/07/18 04/07/18 22:49 06:00 06:00 WBC 2.7 L RBC 2.90 L D Hgb 9.0 L D Hct 27.6 L D MCV 95.5 MCH 31.2 D MCHC 32.7 RDW 15.6 Plt Count 92 L MPV 9.0 Sodium 145 Potassium 5.9 H D Chloride 116 H Carbon Dioxide 20 L D Anion Gap 9 BUN 34 H D Creatinine 1.3 D Creat Clearance w eGFR 58.43 Random Glucose 91 Calcium 8.0 L Total Bilirubin 0.3 AST 105 H D ALT 74 D Alkaline Phosphatase 128 H Total Protein 6.6 Albumin 3.0 L Urine Color Yellow Urine Appearance Clear Urine pH 5.0 Ur Specific [place] 1.018 Urine Protein Negative Urine Glucose (UA) Negative Urine Ketones Negative Urine Blood Negative Urine Nitrite Negative Urine Bilirubin Negative Urine Urobilinogen 2.0 Ur Leukocyte Esterase Negative RPR Titer 04/07/18 04/08/18 04/08/18 06:00 07:30 07:30 WBC 2.6 L RBC 2.92 L Hgb 9.2 L Hct 27.8 L MCV 95.0 MCH 31.6 MCHC 33.2 RDW 15.8 Plt Count 84 L MPV 9.6 Sodium 144 Potassium 4.9 Chloride 113 H Carbon Dioxide 28 D Anion Gap 3 L BUN 26 H D Creatinine 1.0 D Creat Clearance w eGFR > 60 Random Glucose 80 Calcium 7.6 L Total Bilirubin 0.5 D AST 49 H D ALT 44 D Alkaline Phosphatase 120 H Total Protein 5.3 L Albumin 2.3 L D Urine Color Urine Appearance Urine pH Ur Specific [place] Urine Protein Urine Glucose (UA) Urine Ketones Urine Blood Urine Nitrite Urine Bilirubin Urine Urobilinogen Ur Leukocyte Esterase RPR Titer Nonreactive Assessment: 04/10/18 12:13 WITHDRAWAL SX Plan: CONTINUE DETOX. CONTINUE TO ENCOURAGE INCREASED FLUID INTAKE
[2018-04-10] MEDS: traZODone HCL 50 MG TABLET (FP) PO SCH (22:10)
[2018-04-10] MEDS: QUEtiapine FUMARATE 100 MG TABLET (FP) PO SCH (22:10)
[2018-04-10] MEDS: THIAMINE HCL 100 MG TABLET (FP) PO SCH (22:10)
[2018-04-11] MEDS: hydrOXYzine PAMOATE 50 MG CAPSULE (FP) PO PRN (00:51)
[2018-04-11] MEDS ORDERED: METHADONE HCL 5 MG TABLET (FOR DETOX USE ONLY) PO ONE (06:00)
[2018-04-11] MEDS: FERROUS SO4 325 MG TABLET (FP) PO SCH (07:47)
[2018-04-11 09:14] VITALS: BP 95/57; PULSE 74; TEMP 96.9
[2018-04-11] MEDS: HYDROCHLOROTHIAZIDE 25 MG TABLET (FP) PO SCH (10:47)
[2018-04-11] MEDS: NICOTINE 14 MG/24 HOURS TOPICAL PATCH TD SCH (10:48)
[2018-04-11] MEDS: PRENATAL VITAMINS W/ FOLIC ACID TABLET (FP) PO SCH (10:48)
[2018-04-11] MEDS: NAPROXEN 500 MG TABLET (FP) PO SCH (10:48)
[2018-04-11] MEDS: BACLOFEN 10 MG TABLET (FP) PO SCH (10:48)
[2018-04-11] MEDS: LISINOPRIL 10 MG TABLET (FP) PO SCH (10:48)
--- NOTE | 2018-04-11 19:37 | DS ---
[facility] Detox Discharge Summary Admission Date: 04/06/18 Discharge Date: 04/11/18 - History Present History: Cocaine Dependence, Opioid Dependence Additional Comments: NO BEDS ARE AVAILABLE IN [facility] AT THIS TIME, PATIENT ADVISED TO CONTACT [facility] ADMISSIONS DEPARTMENT ON FRIDAY, 04/13 TO INQUIRE ABOUT POSSIBLE ADMISSION AND BED AVAILABILITY AT THAT TIME. PATIENT DECLINED OFFER OF PRESCRIPTIONS FOR DISCHARGE MEDICATIONS, STATING THAT HE CURRENTLY ALREADY HAS ADEQUATE SUPPLIES OF ALL HOME MEDICATIONS. PATIENT WAS DISCHARGED FROM DETOX UNIT IN STABLE MEDICAL CONDITION. Pertinent Past History: HTN, History of Seizures (Due to Withdrawal), Asthma, Bipolar Disorder, Nicotine Dependence, Hep C, HIV, Depression, Insomnia, Weight Loss, Anemia. - Physical Exam Results Vital Signs: Vital Signs Temperature 96.9 F L 04/11/18 09:13 Pulse Rate 74 04/11/18 09:13 Respiratory Rate 18 04/11/18 09:13 Blood Pressure 95/57 04/11/18 09:13 O2 Sat by Pulse Oximetry (%) Pertinent Admission Physical Exam Findings: WITHDRAWAL SYMPTOMS. Laboratory Tests 04/06/18 04/07/18 04/07/18 22:49 06:00 06:00 WBC 2.7 L RBC 2.90 L D Hgb 9.0 L D Hct 27.6 L D MCV 95.5 MCH 31.2 D MCHC 32.7 RDW 15.6 Plt Count 92 L MPV 9.0 Sodium 145 Potassium 5.9 H D Chloride 116 H Carbon Dioxide 20 L D Anion Gap 9 BUN 34 H D Creatinine 1.3 D Creat Clearance w eGFR 58.43 Random Glucose 91 Calcium 8.0 L Total Bilirubin 0.3 AST 105 H D ALT 74 D Alkaline Phosphatase 128 H Total Protein 6.6 Albumin 3.0 L Urine Color Yellow Urine Appearance Clear Urine pH 5.0 Ur Specific [place] 1.018 Urine Protein Negative Urine Glucose (UA) Negative Urine Ketones Negative Urine Blood Negative Urine Nitrite Negative Urine Bilirubin Negative Urine Urobilinogen 2.0 Ur Leukocyte Esterase Negative RPR Titer 04/07/18 04/08/18 04/08/18 06:00 07:30 07:30 WBC 2.6 L RBC 2.92 L Hgb 9.2 L Hct 27.8 L MCV 95.0 MCH 31.6 MCHC 33.2 RDW 15.8 Plt Count 84 L MPV 9.6 Sodium 144 Potassium 4.9 Chloride 113 H Carbon Dioxide 28 D Anion Gap 3 L BUN 26 H D Creatinine 1.0 D Creat Clearance w eGFR > 60 Random Glucose 80 Calcium 7.6 L Total Bilirubin 0.5 D AST 49 H D ALT 44 D Alkaline Phosphatase 120 H Total Protein 5.3 L Albumin 2.3 L D Urine Color Urine Appearance Urine pH Ur Specific [place] Urine Protein Urine Glucose (UA) Urine Ketones Urine Blood Urine Nitrite Urine Bilirubin Urine Urobilinogen Ur Leukocyte Esterase RPR Titer Nonreactive LABS NOTED. - Treatment Hospital Course: Detox Protocol Followed, Detoxed Safely, Responded well, Discharged Condition Good, Rehab Referral Accepted Patient has Accepted a Rehab Referral to: [facility] ([place], [place] . - Medication Discharge Medications: Ambulatory Orders Albuterol Sulfate Inhaler - [Ventolin HFA Inhaler -] 2 inh IH Q4H PRN #1 inhaler 11/19/17 Dolutegravir Sodium [Tivicay] 50 mg PO DAILY #30 tablet 11/19/17 Emtricitabine/Tenofovir [Truvada -] 1 tab PO DAILY #30 tablet 11/19/17 Trazodone HCl 150 mg PO HS #30 tablet 11/19/17 Ferrous Sulfate [Feosol] 325 mg PO TID 04/06/18 Lisinopril/Hydrochlorothiazide [Lisinopril-Hctz 20-25 mg Tab] 1 each PO DAILY Quetiapine Fumarate [Seroquel] 100 mg PO BID 04/06/18 Quetiapine Fumarate [Seroquel] 100 mg PO HS #30 tablet 04/08/18 Trazodone HCl 100 mg PO HS #30 tablet 04/08/18 - Diagnosis (1) Cocaine dependence Status: Acute (2) Insomnia Status: Acute Qualifiers: Insomnia type: unspecified Qualified Code(s): G47.00 - Insomnia, unspecified (3) Nicotine dependence Status: Acute Qualifiers: Nicotine product type: cigarettes Substance use status: in withdrawal Qualified Code(s): F17.213 - Nicotine dependence, cigarettes, with withdrawal (4) Opioid dependence with withdrawal Status: Acute (5) Substance induced mood disorder Status: Acute (6) Substance-induced sleep disorder Status: Acute (7) Acquired immune deficiency syndrome (AIDS) Status: Chronic (8) Asthma Status: Chronic (9) Essential hypertension Status: Chronic (10) Hepatitis C carrier Status: Chronic (11) Seizure Status: Suspected (12) Weight decreased Status: Active (13) IV drug user Status: Acute (14) Anemia Status: Chronic Qualifiers: Anemia type: unspecified type Qualified Code(s): D64.9 - Anemia, unspecified (15) History of bipolar disorder Status: Chronic (16) Psychiatric disorder Status: Suspected - AMA Did Patient Leave Against Medical Advice: No
== END 2018-04-11 10:55 | disposition home or self-care (01) | DRG 773 ==
LOC: YASAS 12:31 → Y3N 18:11
PROVIDERS: ADMIT Internal Medicine; ATTEND Internal Medicine
PROC: HZ2ZZZZ Detoxification Services for Substance Abuse Treatment (ICD-10-PCS; principal; 2018-04-06)
DX: F11.23 Opioid dependence with withdrawal (principal); F17.213 Nicotine dependence, cigarettes, with withdrawal; F19.24 Other psychoactive substance dependence with psychoactive substance-induced mood disorder; F19.282 Other psychoactive substance dependence with psychoactive substance-induced sleep disorder; F31.9 Bipolar disorder, unspecified; F99 Mental disorder, not otherwise specified; G47.00 Insomnia, unspecified; I10 Essential (primary) hypertension; J45.909 Unspecified asthma, uncomplicated; B18.2 Chronic viral hepatitis C; D64.9 Anemia, unspecified; R63.4 Abnormal weight loss; Z68.1 Body mass index [BMI] 19.9 or less, adult; B20 Human immunodeficiency virus [HIV] disease
CPT/HCPCS: 36415; 80053; 81003; 85027; 86593; 93005; 93010; J0475

== ENCOUNTER 2018-05-12 13:33 | Inpatient (IN) | payer OTHER ==
[2018-05-12 13:52] VITALS: BMI 18.8
--- NOTE | 2018-05-12 14:52 | HP ---
COWS - Scale Resting Pulse: 0= [place] 80 or Below Sweatin= Chills/Flushing Restless Observation: 1= Difficult to Sit Still Pupil Size: 0= Normal to Room Light Bone or Joint Aches: 2= Severe Diffuse Aches Runny Nose/ Eye Tearin= Runny Nose/Eyes GI Upset > 30mins: 0= None Tremor Observation: 2= Slight Tremor Visible Yawning Observation: 1= 1-2x During Session Anxiety or Irritability: 2=Irritable/Anxious Goose Flesh Skin: 0=Smooth Skin COWS Score: 11 Admission [facility] Chief Complaint: "I'm tired of this." Patient is here to detox from Heroin. Allergies/Adverse Reactions: Allergies Allergy/AdvReac Type Severity Reaction Status Date / Time fish derived Allergy Severe Hives Verified 05/12/18 14:07 shellfish derived Allergy Severe Hives Verified 05/12/18 14:07 No Known Drug Allergies Allergy Unknown Verified 05/12/18 14:07 seafood Allergy Severe Hives Uncoded 05/12/18 14:07 History of Present Illness: Patient is a 52 YO male here to Detox from Heroin. Patient has had several previous Detox / Rehab admissions at [facility] (Last: 03/2018 ). Patient had a Detox admission at [facility] ([place], [place] in 2016. Exam Limitations: No Limitations - Ebola screening Have you traveled outside of the country in the last 21 days: No Have you had contact with anyone from an Ebola affected area: No Have you been sick,other than usual withdrawal symptoms: No Do you have a fever: No - Review of Systems Constitutional: Loss of Appetite, Malaise, Night Sweats, Changes in sleep, Unintentional Wgt. Loss EENT: reports: Nose Congestion, Sinus Pressure, Other (Missing several teeth. Patient reportst that he is okay to consume Regular Diet.) Respiratory: reports: SOB with Exertion Cardiac: reports: No Symptoms Reported GI: reports: No Symptoms Reported, Poor Appetite : reports: No Symptoms Reported Musculoskeletal: reports: Back Pain, Joint Pain, Muscle Pain, Joint Stiffness Integumentary: reports: No Symptoms Reported Neuro: reports: Tremors Endocrine: reports: No Symptoms Reported Hematology: reports: Anemia (Iron-Deficiency Type; Takes Iron supplement.) Psychiatric: reports: Judgement Intact, Mood/Affect Appropiate, Orientated x3, Anxious, Depressed (Takes Med. (unable to recall name of med.).) Other Systems: Reviewed and Negative Patient History - Patient Medical History Hx Anemia: Yes (Iropn-Deficiency Type, talkes Iron supplement.) Hx Asthma: Yes (Pt is on MDI.) Hx Chronic Obstructive Pulmonary Disease (COPD): No Hx Cancer: No Hx Cardiac Disorders: No Hx Congestive Heart Failure: No Hx Hypertension: Yes (on meds) Hx Hypercholesterolemia: Yes (No meds.) Hx Pacemaker: No HX Cerebrovascular Accident: No Hx Seizures: No Hx Dementia: No Hx Diabetes: No Hx Gastrointestinal Disorders: No Hx Liver Disease: Yes (Hep C; No Treatment. ) Hx Genitourinary Disorders: No Hx Sexually Transmitted Disorders: No Hx Renal Disease (ESRD): No Hx Thyroid Disease: No Hx Human Immunodeficiency Virus (HIV): Yes (Since 1991; Takes medications (has been compliant recently).) Hx Hepatitis C: Yes (since 2003, no tx) Hx Depression: Yes (Unable to recall name of med.) Hx Suicide Attempt: No (PATIENT DENIES CURRENT SI / HI.) Hx Bipolar Disorder: Yes (non compliance with med) Hx Schizophrenia: No Other Medical History: DENIES. - Patient Surgical History Past Surgical History: Yes Hx Neurologic Surgery: No Hx Cataract Extraction: No Hx Cardiac Surgery: No Hx Lung Surgery: No Hx Breast Surgery: No Hx Breast Biopsy: No Hx Abdominal Surgery: No Hx Appendectomy: No Hx Cholecystectomy: No Hx Genitourinary Surgery: No Hx Section: No Hx Orthopedic Surgery: Yes (surgery for osteomyelitis left hip in 1983,1986.) Other Surgical History: DENIES. Anesthesia Reaction: No - PPD History Previous Implant?: Yes Documented Results: Negative w/proof Implanted On Prior R Admission?: Yes Date: 11/01/17 Results: 0 mm PPD to be Administered?: No - Reproductive History Patient is a Female of Child Bearing Age (11 -55 yrs old): No (PATIENT IS MALE.) - Smoking Cessation Smoking history: Current every day smoker Have you smoked in the past 12 months: Yes Aproximately how many cigarettes per day: 5 Cigars Per Day: 0 Hx Chewing Tobacco Use: No Initiated information on smoking cessation: Yes 'Breaking Loose' booklet given: 05/12/18 (GIVEN TO PATIENT.) - Substance & Tx. History Hx Alcohol Use: No Hx Substance Use: Yes Substance Use Type: Cocaine, Heroin, Marijuana Hx Substance Use Treatment: Yes (Previous Detox admisions at [facility] (Last: 03/2018 ); Detox @ [facility] (2016).) - Substances Abused Heroin Route: Injection Frequency: Daily Amount used: 3 bags Age of first use: 16 Date of Last Use: 05/11/18 Crack Route: Smoking Frequency: Daily Amount used: $30-40 Age of first use: 23 Date of Last Use: 05/11/18 Marijuana/Hashish Route: Smoking Frequency: 1-2 times per week Amount used: 1-2 bags Age of first use: 16 Date of Last Use: 05/10/18 Family Disease History - Family Disease History Family Disease History: Diabetes: Mother (), Other: Father (; Suicide.) Admission Physical Exam [facility] - Vital Signs Vital Signs: Vital Signs - 24 hr 05/12/18 13:45 Temperature 97.1 F L Pulse Rate 61 Respiratory 19 Rate Blood Pressure 125/83 - Physical General Appearance: Yes: No Apparent Distress, Appropriately Dressed, Thin, Tremorous, Anxious HEENTM: Yes: Hearing grossly Normal, Normocephalic, Normal Voice, AKANKSHA, Pharynx Normal Respiratory: Yes: Chest Non-Tender, Lungs Clear, No Respiratory Distress, No Accessory Muscle Use Neck: Yes: No masses,lesions,Nodules, Supple, Trachea in good position Breast: Yes: Breast Exam Deferred Cardiology: Yes: Regular Rhythm, Regular Rate, S1, S2 Abdominal: Yes: Normal Bowel Sounds, Non Tender, Flat, Soft Genitourinary: Yes: Within Normal Limits Back: Yes: Decreased Range of Motion Musculoskeletal: Yes: Gait Steady, Back pain, Joint Stiffness, Muscle Pain Extremities: Yes: Normal Capillary Refill, Non-Tender, Tremors Neurological: Yes: Fully Oriented, Alert, Normal Mood/Affect, Normal Response Integumentary: Yes: Normal Color, Dry, Warm, Track Weeks (Note don Left Hand and on Right forearm. No signs of infection noted at affected sites.) Lymphatic: Yes: Within Normal Limits - Diagnostic (1) Cocaine dependence, uncomplicated Current Visit: Yes Status: Acute (2) Cannabis dependence, uncomplicated Current Visit: Yes Status: Acute (3) History of depression Current Visit: Yes Status: Suspected (4) Use of cane as ambulatory aid Current Visit: Yes Status: Chronic (5) Insomnia Current Visit: Yes Status: Chronic Qualifiers: Insomnia type: unspecified Qualified Code(s): G47.00 - Insomnia, unspecified (6) Nicotine dependence Current Visit: Yes Status: Chronic Qualifiers: Nicotine product type: cigarettes Substance use status: uncomplicated Qualified Code(s): F17.210 - Nicotine dependence, cigarettes, uncomplicated (7) Opioid dependence with withdrawal Current Visit: Yes Status: Acute (8) Asthma Current Visit: Yes Status: Chronic (9) Essential hypertension Current Visit: Yes Status: Chronic (10) Hepatitis C carrier Current Visit: Yes Status: Chronic (11) History of bipolar disorder Current Visit: Yes Status: Suspected (12) s/p surgery for osteomyelitis left hip Current Visit: Yes Status: Chronic (13) History of iron deficiency anemia Current Visit: Yes Status: Chronic Cleared for Admission [facility] - Detox or Rehab [facility] Level of Care: Medically Managed Detox Regimen/Protocol: Methadone [facility] Breath Alcohol Content Breath Alcohol Content: 0 Urine Drug Screen - Results Drug Screen Negative: No Urine Drug Screen Results: THC-Marijuana, BENITO-Cocaine, OPI-Opiates, BZO- Benzodiazepines, MTD-Methadone
[2018-05-12] MEDS ORDERED: ACETAMINOPHEN 325 MG TABLET (FP) PO PRN (15:09)
[2018-05-12] MEDS ORDERED: MAG HYDROX/AL HYDROX/SIMETH 30 ML UNIT-DOSE CUP PO PRN (15:09)
[2018-05-12] MEDS ORDERED: MENTHOL/PHENOL 1 EACH UD MM PRN (15:09)
[2018-05-12] MEDS ORDERED: NICOTINE POLACRILEX 2 MG GUM BC PRN (15:09)
[2018-05-12] MEDS ORDERED: LOPERAMIDE HCL 2 MG CAPSULE PO PRN (15:09)
[2018-05-12] MEDS ORDERED: IBUPROFEN 400 MG TABLET (FP) PO PRN (15:09)
[2018-05-12] MEDS ORDERED: guaiFENesin/D-METHORPHAN HB 10 ML UNIT-DOSE CUPS PO PRN (15:09)
[2018-05-12] MEDS ORDERED: P-EPHED 60MG/TRIPROLIDI 2.5MG TABLET PO PRN (15:09)
[2018-05-12] MEDS ORDERED: MAGNESIUM HYDROX 2400MG/30ML ORAL SUSPENSION 30 ML CUP PO PRN (15:09)
[2018-05-12] MEDS ORDERED: MAGNESIUM CITRATE 300 ML BOTTLE PO PRN (15:09)
[2018-05-12] MEDS ORDERED: ALBUTEROL SO4 18 GM HFA INHALER IH PRN (15:15)
[2018-05-12] MEDS ORDERED: METHADONE HCL 10 MG TABLET (FOR DETOX USE ONLY) PO ONE ×2 (15:50→23:00)
--- NOTE | 2018-05-12 16:57 | PN ---
[facility] Progress Note Note: EKG indication of sinus bradycardia w/ a septal infarct of undetermined age. Patient denies previous cardiac events or chest pain in past or present. March 2018 EKG report is w/o indication of infarct. Vital Signs Period Temp Pulse Resp BP Sys/Rodgers Pulse Ox Last 24 Hr 97.1 F 61 19 125/83 Will repeat EKG in am and have provider f/u as needed.
[2018-05-12] MEDS: FERROUS SO4 325 MG TABLET (FP) PO SCH (17:01)
[2018-05-12] MEDS: diazePAM 5 MG TABLET PO PRN ×2 (17:02→22:16)
[2018-05-12] MEDS: LISINOPRIL 20 MG TABLET (FP) PO SCH (17:02)
[2018-05-12] MEDS: NICOTINE 21 MG/24 HOURS TOPICAL PATCH TD SCH (17:03)
[2018-05-12] MEDS ORDERED: MELATONIN 5 MG TABLETS PO PRN (22:00)
[2018-05-12] MEDS: THIAMINE HCL 100 MG TABLET (FP) PO SCH (22:17)
[2018-05-13 07:23] LABS: URINE APPEARANCE CLEAR; URINE BILIRUBIN NEGATIVE (<2.0 mg/dL); URINE COLOR YELLOW; URINE GLUCOSE (UA) NEGATIVE (NEGATIVE); URINE KETONE NEGATIVE (NEGATIVE); URINE LEUK ESTERASE NEGATIVE (NEGATIVE); URINE NITRITE NEGATIVE (NEGATIVE); URINE PROTEIN NEGATIVE (NEGATIVE)
[2018-05-13] MEDS: FERROUS SO4 325 MG TABLET (FP) PO SCH ×3 (07:25→17:59)
--- NOTE | 2018-05-13 08:18 | CONSULT ---
[facility] Psychiatric Consult - Data Date of interview: 05/13/18 Admission source: [facility] Identifying data: This is 52 years old male, single, living alone, on HASSA support, with no psychiatric hospitalization history, with Heroin, Crack, Cannabis and Nicotine dependece, reports withdrawal symptoms and seeking for datox. Substance Abuse History: Smoking history: Current every day smoker. Have you smoked in the past 12 months: Yes. Aproximately how many cigarettes per day: 5. Cigars Per Day: 0. Hx Chewing Tobacco Use: No. Initiated information on smoking cessation: Yes. 'Breaking Loose' booklet given: 05/12/18 (GIVEN TO PATIENT.). - Substance & Tx. History. Hx Alcohol Use: No. Hx Substance Use: Yes. Substance Use Type: Cocaine, Heroin, Marijuana. Hx Substance Use Treatment: Yes (Previous Detox admisions at [facility] (Last: 03/2018); Detox @ [facility] (2016).). - Substances Abused. Heroin. Route: Injection. Frequency: Daily. Amount used: 3 bags. Age of first use: 16. Date of Last Use : 05/11/18. Crack. Route: Smoking. Frequency: Daily. Amount used: $30- 40. Age of first use: 23. Date of Last Use: 05/11/18. Marijuana/Hashish. Route: Smoking. Frequency: 1-2 times per week. Amount used: 1-2 bags. Age of first use: 16. Date of Last Use: 05/10/18 Medical History: Asthma, HTN, LEFT 0STEOMYELITIS S/P, Ambulates with Cane, Hep c +, Anemia history, Weight loss history Psychiatric History: Patient reports history of Bipolar Disorder, as per chart Non [facility] psychiatric medications, as per patient taking prior to admission: Trazodone 150mg po qhs. Wellbutrin XL 150mg poqd. Denies suicidal , homicidal history Physical/Sexual Abuse/Trauma History: Denies Additional Comment: Trazodone 150mg po qhs. Wellbutrin XL 150mg poqd Mental Status Exam - Mental Status Exam Alert and Oriented to: Person Cognitive Function: Fair Patient Appearance: Unkempt Mood: Sad Affect: Flat Patient Behavior: Sedated Speech Pattern: Delayed Voice Loudness: Mildly Soft/Quiet Thought Process: Circumstantial Thought Disorder: Being Controlled Hallucinations: Denies Suicidal Ideation: Denies Homicidal Ideation: Denies Insight/Judgement: Fair Sleep: Difficulty falling asleep Appetite: Weight loss Muscle strength/Tone: Mild Hypotonicity Gait/Station: Deferred Additional Comments: Trazodone 150mg po qhs. Wellbutrin XL 150mg poqd Psychiatric Findings - Problem List ([place] 1, 2,3) (1) Cannabis dependence, uncomplicated Current Visit: Yes Status: Acute (2) Cocaine dependence, uncomplicated Current Visit: Yes Status: Acute (3) Opioid dependence with withdrawal Current Visit: Yes Status: Acute (4) Asthma Current Visit: Yes Status: Chronic (5) Essential hypertension Current Visit: Yes Status: Chronic (6) Hepatitis C carrier Current Visit: Yes Status: Chronic (7) History of iron deficiency anemia Current Visit: Yes Status: Chronic (8) Use of cane as ambulatory aid Current Visit: Yes Status: Chronic (9) s/p surgery for osteomyelitis left hip Current Visit: Yes Status: Chronic (10) Opioid dependence Current Visit: No Status: Active (11) Weight decreased Current Visit: No Status: Active (12) bipolar disorder with depression Current Visit: No Status: Active (13) Cocaine dependence Current Visit: No Status: Acute (14) Substance induced mood disorder Current Visit: No Status: Acute (15) Substance-induced sleep disorder Current Visit: No Status: Acute (16) Acquired immune deficiency syndrome (AIDS) Current Visit: No Status: Chronic Comment: non compliant with his medication (17) Anemia Current Visit: No Status: Chronic Qualifiers: Anemia type: unspecified type Qualified Code(s): D64.9 - Anemia, unspecified (18) Seizure Current Visit: No Status: Suspected (19) Non compliance w medication regimen Current Visit: Yes Status: Acute - Initial Treatment Plan Initial Treatment Plan: Trazodone 150mg po qhs. Wellbutrin XL 150mg poqd
[2018-05-13] MEDS: PATIENT'S OWN MEDICATION (NON-FORMULARY) (Emtricitabine/Tenofov Alafenam [Descovy 200-25 M PO SCH ×2 (09:24→10:24)
[2018-05-13] MEDS: PATIENT'S OWN MEDICATION (NON-FORMULARY) (Dolutegravir Sodium [Tivicay] 50 MG) PO SCH ×2 (09:24→10:24)
[2018-05-13] MEDS ORDERED: METHADONE HCL 10 MG TABLET (FOR DETOX USE ONLY) PO ONE (10:00)
[2018-05-13] MEDS: LISINOPRIL 20 MG TABLET (FP) PO SCH (10:24)
[2018-05-13] MEDS: PRENATAL VITAMINS W/ FOLIC ACID TABLET (FP) PO SCH (10:24)
[2018-05-13] MEDS: diazePAM 5 MG TABLET PO PRN ×2 (10:24→22:33)
[2018-05-13] MEDS: HYDROCHLOROTHIAZIDE 25 MG TABLET (FP) PO SCH (10:24)
[2018-05-13] MEDS: NICOTINE 21 MG/24 HOURS TOPICAL PATCH TD SCH (10:26)
--- NOTE | 2018-05-13 10:47 | EKG ---
Test Reason : Blood Pressure : / mmHG Vent. Rate : 058 BPM Atrial Rate : 058 BPM P-R Int : 146 ms QRS Dur : 072 ms QT Int : 422 ms P-R-T Axes : 072 059 058 degrees QTc Int : 414 ms SINUS BRADYCARDIA SEPTAL INFARCT , AGE UNDETERMINED ABNORMAL ECG WHEN COMPARED WITH ECG OF 06-APR-2018 19:04, SEPTAL INFARCT IS NOW PRESENT Confirmed by CLIFF CASANOVA, ROB ([id number]) on 05/13/2018 10:47:16 AM Referred By: Confirmed By:ROB CORONADO MD
--- NOTE | 2018-05-13 10:47 | EKG ---
Test Reason : Blood Pressure : / mmHG Vent. Rate : 069 BPM Atrial Rate : 069 BPM P-R Int : 138 ms QRS Dur : 082 ms QT Int : 412 ms P-R-T Axes : 057 035 059 degrees QTc Int : 441 ms NORMAL SINUS RHYTHM SEPTAL INFARCT (CITED ON OR BEFORE 12-MAY-2018) ABNORMAL ECG WHEN COMPARED WITH ECG OF 12-MAY-2018 16:40, QUESTIONABLE CHANGE IN INITIAL FORCES OF SEPTAL LEADS Confirmed by ROB CORONADO MD ([id number]) on 05/13/2018 10:47:28 AM Referred By: Confirmed By:ROB CORONADO MD
--- NOTE | 2018-05-13 10:56 | PN ---
[facility] COWS - Scale Resting Pulse: 0= [place] 80 or Below Sweatin=Flushed/Facial Moisture Restless Observation: 1= Difficult to Sit Still Pupil Size: 1= Pupils >than Normal Bone or Joint Aches: 2= Severe Diffuse Aches Runny Nose/ Eye Tearin= Nasal Congestion GI Upset > 30mins: 1= Stomach Cramp Tremor Observation of Outstretched Hands: 1= Tremor [place], Not Seen Yawning Observation: 0= None Anxiety or Irritability: 1=Feels Anxious/Irritable Goose Flesh Skin: 0=Smooth Skin COWS Score: 10 [facility] Progress Note (SOAP) Subjective: Interrupted sleep, swe,, aches ats, shakes Objective: 05/13/18 10:58 Vital Signs Temperature 97.3 F L 05/13/18 09:15 Pulse Rate 74 05/13/18 09:15 Respiratory Rate 16 05/13/18 09:15 Blood Pressure 130/83 05/13/18 09:15 O2 Sat by Pulse Oximetry (%) Laboratory Tests 05/12/18 20:18 Urine Color Yellow Urine Appearance Clear Urine pH 5.0 Ur Specific [place] 1.019 Urine Protein Negative Urine Glucose (UA) Negative Urine Ketones Negative Urine Blood Negative Urine Nitrite Negative Urine Bilirubin Negative Urine Urobilinogen 2.0 Ur Leukocyte Esterase Negative pending labs Pt aox3 in nad ambulating w/o cane 05/13/18 11:00 Assessment: 05/13/18 11:00 withdrawal sx's hcv htn s/p surgery left hip-osteomyelitis asthma coacaine use bipolar d/o 05/13/18 11:02 05/13/18 11:04 Plan: cont. detox increase fluids flexeril 5mg tid f/up pending labs
[2018-05-13 11:05] LABS: HEMATOCRIT 28.6 % (35.4-49); HEMOGLOBIN 9.3 GM/dL (11.7-16.9); MCH 30.7 pg (25.7-33.7); MCHC 32.3 g/dl (32.0-35.9); MEAN PLT VOLUME 9.6 fl (7.5-11.1); PLATELET COUNT 127 K/MM3 (134-434); RBC 3.02 M/mm3 (4.00-5.60); RDW 15.1 % (11.9-15.9); WHITE BLOOD COUNT 2.2 K/mm3 (4.0-10.0)
--- NOTE | 2018-05-13 11:15 | PN ---
[facility] COWS - Scale Resting Pulse: 0= [place] 80 or Below Sweatin=Flushed/Facial Moisture Restless Observation: 1= Difficult to Sit Still Pupil Size: 1= Pupils >than Normal Bone or Joint Aches: 2= Severe Diffuse Aches Runny Nose/ Eye Tearin= Nasal Congestion GI Upset > 30mins: 1= Stomach Cramp Tremor Observation of Outstretched Hands: 2= Slight Tremor Visible Yawning Observation: 0= None Anxiety or Irritability: 1=Feels Anxious/Irritable Goose Flesh Skin: 0=Smooth Skin COWS Score: 11 [facility] Progress Note (SOAP) Subjective: interrupted sleep, sweats , shakes, reflux Objective: 05/13/18 11:17 Vital Signs Temperature 97.3 F L 05/13/18 09:15 Pulse Rate 74 05/13/18 09:15 Respiratory Rate 16 05/13/18 09:15 Blood Pressure 130/83 05/13/18 09:15 O2 Sat by Pulse Oximetry (%) Laboratory Tests 05/12/18 05/13/18 20:18 06:00 WBC 2.2 L RBC 3.02 L Hgb 9.3 L Hct 28.6 L MCV 95.0 MCH 30.7 MCHC 32.3 RDW 15.1 Plt Count 127 L D MPV 9.6 Urine Color Yellow Urine Appearance Clear Urine pH 5.0 Ur Specific [place] 1.019 Urine Protein Negative Urine Glucose (UA) Negative Urine Ketones Negative Urine Blood Negative Urine Nitrite Negative Urine Bilirubin Negative Urine Urobilinogen 2.0 Ur Leukocyte Esterase Negative pt aox3 lying in bed then sitting up in bed Assessment: 05/13/18 11:19 withdrawal sx's anemia Plan: cont. detox increase fluids repeat cbc zantac 150mg bid
[2018-05-13 11:41] LABS: ALBUMIN 2.7 g/dl (3.4-5.0); ANION GAP 4 (8-16); BILIRUBIN,TOTAL 0.3 mg/dL (0.2-1.0); BLOOD UREA NITROGEN 18 mg/dL (7-18); CALCIUM 7.9 mg/dL (8.5-10.1); CHLORIDE 113 mmol/L (98-107); CO2 29 mmol/L (21-32); CREATININE 1.1 mg/dL (0.7-1.3); GLUCOSE,RANDOM 86 mg/dL (74-106); POTASSIUM 4.6 mmol/L (3.5-5.1); SGOT/AST 85 U/L (15-37); SGPT/ALT 68 U/L (12-78); SODIUM 146 mmol/L (136-145); TOT PROT 6.6 g/dl (6.4-8.2)
[2018-05-13 11:42] LABS: ALK PHOS 117 U/L (45-117)
[2018-05-13] MEDS: CYCLOBENZAPRINE HCL 5 MG TABLET PO SCH ×2 (13:03→22:33)
[2018-05-13] MEDS: traZODone HCL 50 MG TABLET (FP) PO SCH (22:33)
[2018-05-13] MEDS: THIAMINE HCL 100 MG TABLET (FP) PO SCH (22:33)
[2018-05-13] MEDS: RANITIDINE HCL 150 MG TABLET (FP) PO SCH (22:33)
[2018-05-14] MEDS: CYCLOBENZAPRINE HCL 5 MG TABLET PO SCH ×3 (06:43→22:21)
[2018-05-14] MEDS: FERROUS SO4 325 MG TABLET (FP) PO SCH ×3 (07:59→17:30)
[2018-05-14 09:59] LABS: BASO % 0.4 % (0-2.0); EOS % 1.3 % (0-4.5); HEMATOCRIT 28.5 % (35.4-49); HEMOGLOBIN 9.5 GM/dL (11.7-16.9); LYMPH % 36.4 % (8-40); MCH 30.8 pg (25.7-33.7); MCHC 33.3 g/dl (32.0-35.9); MEAN CELL VOLUME 92.6 fl (80-96); MEAN PLT VOLUME 9.7 fl (7.5-11.1); MONO % 12.1 % (3.8-10.2); NEUT % 49.8 % (42.8-82.8); PLATELET COUNT 141 K/MM3 (134-434); RBC 3.08 M/mm3 (4.00-5.60); RDW 14.8 % (11.9-15.9); WHITE BLOOD COUNT 3.2 K/mm3 (4.0-10.0)
[2018-05-14] MEDS ORDERED: METHADONE HCL 5 MG TABLET (FOR DETOX USE ONLY) PO ONE (10:00)
[2018-05-14] MEDS: RANITIDINE HCL 150 MG TABLET (FP) PO SCH ×2 (10:27→22:21)
[2018-05-14] MEDS: LISINOPRIL 20 MG TABLET (FP) PO SCH (10:27)
[2018-05-14] MEDS: HYDROCHLOROTHIAZIDE 25 MG TABLET (FP) PO SCH (10:28)
[2018-05-14] MEDS: NICOTINE 21 MG/24 HOURS TOPICAL PATCH TD SCH (10:28)
[2018-05-14] MEDS: PRENATAL VITAMINS W/ FOLIC ACID TABLET (FP) PO SCH (10:28)
[2018-05-14] MEDS: PATIENT'S OWN MEDICATION (NON-FORMULARY) (Dolutegravir Sodium [Tivicay] 50 MG) PO SCH (10:29)
[2018-05-14] MEDS: PATIENT'S OWN MEDICATION (NON-FORMULARY) (Emtricitabine/Tenofov Alafenam [Descovy 200-25 M PO SCH (10:29)
--- NOTE | 2018-05-14 12:03 | PN ---
[facility] Progress Note Note: PATIENT ADMITTED FOR DETOX 05/12/18 FOR HEROIN WITHDRAWALS. NO MEDICAL COMPLAINTS VOICED TODAY. DENIES CP, SOB AND DIZZINESS. Laboratory Tests 05/12/18 05/13/18 05/13/18:18 06:00 06:00 WBC 2.2 L RBC 3.02 L Hgb 9.3 L Hct 28.6 L MCV 95.0 MCH 30.7 MCHC 32.3 RDW 15.1 Plt Count 127 L D MPV 9.6 Absolute Neuts (auto) Neutrophils % Lymphocytes % Monocytes % Eosinophils % Basophils % Nucleated RBC % Sodium 146 H Potassium 4.6 Chloride 113 H Carbon Dioxide 29 Anion Gap 4 L BUN 18 D Creatinine 1.1 Creat Clearance w eGFR > 60 Random Glucose 86 Calcium 7.9 L Total Bilirubin 0.3 D AST 85 H D ALT 68 D Alkaline Phosphatase 117 Total Protein 6.6 D Albumin 2.7 L Urine Color Yellow Urine Appearance Clear Urine pH 5.0 Ur Specific [place] 1.019 Urine Protein Negative Urine Glucose (UA) Negative Urine Ketones Negative Urine Blood Negative Urine Nitrite Negative Urine Bilirubin Negative Urine Urobilinogen 2.0 Ur Leukocyte Esterase Negative RPR Titer 05/13/18 05/14/18 06:00 07:50 WBC 3.2 L D RBC 3.08 L Hgb 9.5 L Hct 28.5 L MCV 92.6 MCH 30.8 MCHC 33.3 RDW 14.8 Plt Count 141 MPV 9.7 Absolute Neuts (auto) 1.6 Neutrophils % 49.8 Lymphocytes % 36.4 Monocytes % 12.1 H Eosinophils % 1.3 Basophils % 0.4 Nucleated RBC % 0 Sodium Potassium Chloride Carbon Dioxide Anion Gap BUN Creatinine Creat Clearance w eGFR Random Glucose Calcium Total Bilirubin AST ALT Alkaline Phosphatase Total Protein Albumin Urine Color Urine Appearance Urine pH Ur Specific [place] Urine Protein Urine Glucose (UA) Urine Ketones Urine Blood Urine Nitrite Urine Bilirubin Urine Urobilinogen Ur Leukocyte Esterase RPR Titer Nonreactive Laboratory Tests 05/12/18 05/13/18 05/13/18:18 06:00 06:00 WBC 2.2 L RBC 3.02 L Hgb 9.3 L Hct 28.6 L MCV 95.0 MCH 30.7 MCHC 32.3 RDW 15.1 Plt Count 127 L D MPV 9.6 Absolute Neuts (auto) Neutrophils % Lymphocytes % Monocytes % Eosinophils % Basophils % Nucleated RBC % Sodium 146 H Potassium 4.6 Chloride 113 H Carbon Dioxide 29 Anion Gap 4 L BUN 18 D Creatinine 1.1 Creat Clearance w eGFR > 60 Random Glucose 86 Calcium 7.9 L Total Bilirubin 0.3 D AST 85 H D ALT 68 D Alkaline Phosphatase 117 Total Protein 6.6 D Albumin 2.7 L Urine Color Yellow Urine Appearance Clear Urine pH 5.0 Ur Specific [place] 1.019 Urine Protein Negative Urine Glucose (UA) Negative Urine Ketones Negative Urine Blood Negative Urine Nitrite Negative Urine Bilirubin Negative Urine Urobilinogen 2.0 Ur Leukocyte Esterase Negative RPR Titer 05/13/18 05/14/18 06:00 07:50 WBC 3.2 L D RBC 3.08 L Hgb 9.5 L Hct 28.5 L MCV 92.6 MCH 30.8 MCHC 33.3 RDW 14.8 Plt Count 141 MPV 9.7 Absolute Neuts (auto) 1.6 Neutrophils % 49.8 Lymphocytes % 36.4 Monocytes % 12.1 H Eosinophils % 1.3 Basophils % 0.4 Nucleated RBC % 0 Sodium Potassium Chloride Carbon Dioxide Anion Gap BUN Creatinine Creat Clearance w eGFR Random Glucose Calcium Total Bilirubin AST ALT Alkaline Phosphatase Total Protein Albumin Urine Color Urine Appearance Urine pH Ur Specific [place] Urine Protein Urine Glucose (UA) Urine Ketones Urine Blood Urine Nitrite Urine Bilirubin Urine Urobilinogen Ur Leukocyte Esterase RPR Titer Nonreactive Vital Signs Temperature 98.0 F 05/14/18 10:09 Pulse Rate 64 05/14/18 10:09 Respiratory Rate 18 05/14/18 10:09 Blood Pressure 115/75 05/14/18 10:09 O2 Sat by Pulse Oximetry (%) OBJ: GENERAL: ALERT AND ORIENTED X 3. IN NAD. SKIN: WARM AND DRY EXT: NO EDEMA, FULL ROM A/P: CONTINUE DETOX ENCOURAGE ORAL FLUIDS CONTINUE TO MONITOR CLINICALLY
[2018-05-14] MEDS: THIAMINE HCL 100 MG TABLET (FP) PO SCH (22:21)
[2018-05-14] MEDS: traZODone HCL 50 MG TABLET (FP) PO SCH (22:21)
[2018-05-14] MEDS: diazePAM 5 MG TABLET PO PRN (22:23)
[2018-05-15] MEDS: CYCLOBENZAPRINE HCL 5 MG TABLET PO SCH ×3 (07:23→22:08)
[2018-05-15] MEDS: FERROUS SO4 325 MG TABLET (FP) PO SCH ×3 (07:24→17:28)
[2018-05-15] MEDS ORDERED: METHADONE HCL 5 MG TABLET (FOR DETOX USE ONLY) PO ONE (10:00)
--- NOTE | 2018-05-15 10:30 | PN ---
[facility] Progress Note (SOAP) Subjective: ANXIETY,TREMORS,BACK PAIN,FATIGUE,INTERMITTENT SLEEP. Objective: 05/15/18 10:28 Vital Signs 05/15/18 05/15/18 03:30 06:00 Temperature 97.9 F Pulse Rate 87 Respiratory 18 16 Rate Blood Pressure 107/70 Laboratory Tests 05/12/18 05/13/18 05/13/18 20:18 06:00 06:00 WBC 2.2 L RBC 3.02 L Hgb 9.3 L Hct 28.6 L MCV 95.0 MCH 30.7 MCHC 32.3 RDW 15.1 Plt Count 127 L D MPV 9.6 Absolute Neuts (auto) Neutrophils % Lymphocytes % Monocytes % Eosinophils % Basophils % Nucleated RBC % Sodium 146 H Potassium 4.6 Chloride 113 H Carbon Dioxide 29 Anion Gap 4 L BUN 18 D Creatinine 1.1 Creat Clearance w eGFR > 60 Random Glucose 86 Calcium 7.9 L Total Bilirubin 0.3 D AST 85 H D ALT 68 D Alkaline Phosphatase 117 Total Protein 6.6 D Albumin 2.7 L Urine Color Yellow Urine Appearance Clear Urine pH 5.0 Ur Specific [place] 1.019 Urine Protein Negative Urine Glucose (UA) Negative Urine Ketones Negative Urine Blood Negative Urine Nitrite Negative Urine Bilirubin Negative Urine Urobilinogen 2.0 Ur Leukocyte Esterase Negative RPR Titer 05/13/18 05/14/18 06:00 07:50 WBC 3.2 L D RBC 3.08 L Hgb 9.5 L Hct 28.5 L MCV 92.6 MCH 30.8 MCHC 33.3 RDW 14.8 Plt Count 141 MPV 9.7 Absolute Neuts (auto) 1.6 Neutrophils % 49.8 Lymphocytes % 36.4 Monocytes % 12.1 H Eosinophils % 1.3 Basophils % 0.4 Nucleated RBC % 0 Sodium Potassium Chloride Carbon Dioxide Anion Gap BUN Creatinine Creat Clearance w eGFR Random Glucose Calcium Total Bilirubin AST ALT Alkaline Phosphatase Total Protein Albumin Urine Color Urine Appearance Urine pH Ur Specific [place] Urine Protein Urine Glucose (UA) Urine Ketones Urine Blood Urine Nitrite Urine Bilirubin Urine Urobilinogen Ur Leukocyte Esterase RPR Titer Nonreactive Assessment: 05/15/18 10:29 WITHDRAWAL SX Plan: CONTINUE DETOX
[2018-05-15] MEDS: PRENATAL VITAMINS W/ FOLIC ACID TABLET (FP) PO SCH (11:35)
[2018-05-15] MEDS: PATIENT'S OWN MEDICATION (NON-FORMULARY) (Emtricitabine/Tenofov Alafenam [Descovy 200-25 M PO SCH (11:35)
[2018-05-15] MEDS: PATIENT'S OWN MEDICATION (NON-FORMULARY) (Dolutegravir Sodium [Tivicay] 50 MG) PO SCH (11:36)
[2018-05-15] MEDS: HYDROCHLOROTHIAZIDE 25 MG TABLET (FP) PO SCH (11:36)
[2018-05-15] MEDS: NICOTINE 21 MG/24 HOURS TOPICAL PATCH TD SCH (11:37)
[2018-05-15] MEDS: RANITIDINE HCL 150 MG TABLET (FP) PO SCH ×2 (11:37→22:08)
[2018-05-15] MEDS: LISINOPRIL 20 MG TABLET (FP) PO SCH (11:37)
[2018-05-15] MEDS: traZODone HCL 50 MG TABLET (FP) PO SCH (22:08)
[2018-05-15] MEDS: THIAMINE HCL 100 MG TABLET (FP) PO SCH (22:08)
[2018-05-16] MEDS: CYCLOBENZAPRINE HCL 5 MG TABLET PO SCH ×3 (06:11→23:04)
[2018-05-16] MEDS: FERROUS SO4 325 MG TABLET (FP) PO SCH ×3 (07:51→18:25)
[2018-05-16] MEDS ORDERED: METHADONE HCL 10 MG TABLET (FOR DETOX USE ONLY) PO ONE (10:00)
[2018-05-16] MEDS: NICOTINE 21 MG/24 HOURS TOPICAL PATCH TD SCH (10:48)
[2018-05-16] MEDS: PATIENT'S OWN MEDICATION (NON-FORMULARY) (Dolutegravir Sodium [Tivicay] 50 MG) PO SCH (10:48)
[2018-05-16] MEDS: PRENATAL VITAMINS W/ FOLIC ACID TABLET (FP) PO SCH (10:48)
[2018-05-16] MEDS: HYDROCHLOROTHIAZIDE 25 MG TABLET (FP) PO SCH (10:48)
[2018-05-16] MEDS: PATIENT'S OWN MEDICATION (NON-FORMULARY) (Emtricitabine/Tenofov Alafenam [Descovy 200-25 M PO SCH (10:48)
[2018-05-16] MEDS: LISINOPRIL 20 MG TABLET (FP) PO SCH (10:48)
[2018-05-16] MEDS: RANITIDINE HCL 150 MG TABLET (FP) PO SCH ×2 (10:48→23:05)
--- NOTE | 2018-05-16 11:50 | PN ---
S Progress Note (SOAP) Subjective: Body aches and tremors Objective: 05/16/18 11:49 Vital Signs - 8 hr 05/16/18 05/16/18 06:36 10:35 Temperature 96.1 F L 97.9 F Pulse Rate 68 82 Respiratory 18 18 Rate Blood Pressure 110/70 147/59 Laboratory Last Values WBC 3.2 K/mm3 (4.0-10.0) L D 05/14/18 07:50 RBC 3.08 M/mm3 (4.00-5.60) L 05/14/18 07:50 Hgb 9.5 GM/dL (11.7-16.9) L 05/14/18 07:50 Hct 28.5 % (35.4-49) L 05/14/18 07:50 MCV 92.6 fl (80-96) 05/14/18 07:50 MCH 30.8 pg (25.7-33.7) 05/14/18 07:50 MCHC 33.3 g/dl (32.0-35.9) 05/14/18 07:50 RDW 14.8 % (11.9-15.9) 05/14/18 07:50 Plt Count 141 K/MM3 (134-434) 05/14/18 07:50 MPV 9.7 fl (7.5-11.1) 05/14/18 07:50 Absolute Neuts (auto) 1.6 # 05/14/18 07:50 Neutrophils % 49.8 % (42.8-82.8) 05/14/18 07:50 Lymphocytes % 36.4 % (8-40) 05/14/18 07:50 Monocytes % 12.1 % (3.8-10.2) H 05/14/18 07:50 Eosinophils % 1.3 % (0-4.5) 05/14/18 07:50 Basophils % 0.4 % (0-2.0) 05/14/18 07:50 Nucleated RBC % 0 % (0-0) 05/14/18 07:50 Sodium 146 mmol/L (136-145) H 05/13/18 06:00 Potassium 4.6 mmol/L (3.5-5.1) 05/13/18 06:00 Chloride 113 mmol/L (98-107) H 05/13/18 06:00 Carbon Dioxide 29 mmol/L (21-32) 05/13/18 06:00 Anion Gap 4 (8-16) L 05/13/18 06:00 BUN 18 mg/dL (7-18) D 05/13/18 06:00 Creatinine 1.1 mg/dL (0.7-1.3) 05/13/18 06:00 Creat Clearance w eGFR > 60 (>60) 05/13/18 06:00 Random Glucose 86 mg/dL (74-106) 05/13/18 06:00 Calcium 7.9 mg/dL (8.5-10.1) L 05/13/18 06:00 Total Bilirubin 0.3 mg/dL (0.2-1.0) D 05/13/18 06:00 AST 85 U/L (15-37) H D 05/13/18 06:00 ALT 68 U/L (12-78) D 05/13/18 06:00 Alkaline Phosphatase 117 U/L (45-117) 05/13/18 06:00 Total Protein 6.6 g/dl (6.4-8.2) D 05/13/18 06:00 Albumin 2.7 g/dl (3.4-5.0) L 05/13/18 06:00 Urine Color Yellow 05/12/18: Urine Appearance Clear 05/12/18:18 Urine pH 5.0 (5.0-8.0) 05/12/18 20:18 Ur Specific [place] 1.019 (1.001-1.035) 05/12/18 20:18 Urine Protein Negative (NEGATIVE) 05/12/18 20:18 Urine Glucose (UA) Negative (NEGATIVE) 05/12/18 20:18 Urine Ketones Negative (NEGATIVE) 05/12/18 20:18 Urine Blood Negative (NEGATIVE) 05/12/18 20:18 Urine Nitrite Negative (NEGATIVE) 05/12/18:18 Urine Bilirubin Negative (<2.0 mg/dL) 05/12/18 20:18 Urine Urobilinogen 2.0 mg/dL (0.2-1.0) 05/12/18 20:18 Ur Leukocyte Esterase Negative (NEGATIVE) 05/12/18 20:18 RPR Titer Nonreactive (NONREACTIVE) 05/13/18 06:00 Labs noted Assessment: 05/16/18 11:49 Withdrawal sx Plan: Continue detox
[2018-05-16] MEDS: traZODone HCL 50 MG TABLET (FP) PO SCH (23:04)
[2018-05-16] MEDS: THIAMINE HCL 100 MG TABLET (FP) PO SCH (23:04)
[2018-05-17] MEDS: CYCLOBENZAPRINE HCL 5 MG TABLET PO SCH (05:59)
[2018-05-17] MEDS ORDERED: METHADONE HCL 5 MG TABLET (FOR DETOX USE ONLY) PO ONE (06:00)
[2018-05-17 07:03] VITALS: BP 119/76; PULSE 66; TEMP 98.1
[2018-05-17] MEDS: FERROUS SO4 325 MG TABLET (FP) PO SCH (07:24)
--- NOTE | 2018-05-17 09:10 | DS ---
[facility] Detox Discharge Summary Admission Date: 05/12/18 Discharge Date: 05/17/18 - History Present History: Opioid Dependence Additional Comments: 52 years old male admitted 05/12/18 for opiate withdrawal sx completed opiate detox regimen tolerated well denies opiate withdrawal sx aftercare [facility] / [facility] alert oriented x 3 no acute distress - Physical Exam Results Vital Signs: Vital Signs Temperature 98.1 F 05/17/18 06:59 Pulse Rate 66 05/17/18 06:59 Respiratory Rate 18 05/17/18 06:59 Blood Pressure 119/76 05/17/18 06:59 O2 Sat by Pulse Oximetry (%) Pertinent Admission Physical Exam Findings: opiate withdrawal sx Vital Signs Temperature 98.1 F 05/17/18 06:59 Pulse Rate 66 05/17/18 06:59 Respiratory Rate 18 05/17/18 06:59 Blood Pressure 119/76 05/17/18 06:59 O2 Sat by Pulse Oximetry (%) Laboratory Last Values WBC 3.2 K/mm3 (4.0-10.0) L D 05/14/18 07:50 RBC 3.08 M/mm3 (4.00-5.60) L 05/14/18 07:50 Hgb 9.5 GM/dL (11.7-16.9) L 05/14/18 07:50 Hct 28.5 % (35.4-49) L 05/14/18 07:50 MCV 92.6 fl (80-96) 05/14/18 07:50 MCH 30.8 pg (25.7-33.7) 05/14/18 07:50 MCHC 33.3 g/dl (32.0-35.9) 05/14/18 07:50 RDW 14.8 % (11.9-15.9) 05/14/18 07:50 Plt Count 141 K/MM3 (134-434) 05/14/18 07:50 MPV 9.7 fl (7.5-11.1) 05/14/18 07:50 Absolute Neuts (auto) 1.6 # 05/14/18 07:50 Neutrophils % 49.8 % (42.8-82.8) 05/14/18 07:50 Lymphocytes % 36.4 % (8-40) 05/14/18 07:50 Monocytes % 12.1 % (3.8-10.2) H 05/14/18 07:50 Eosinophils % 1.3 % (0-4.5) 05/14/18 07:50 Basophils % 0.4 % (0-2.0) 05/14/18 07:50 Nucleated RBC % 0 % (0-0) 05/14/18 07:50 Sodium 146 mmol/L (136-145) H 05/13/18 06:00 Potassium 4.6 mmol/L (3.5-5.1) 05/13/18 06:00 Chloride 113 mmol/L (98-107) H 05/13/18 06:00 Carbon Dioxide 29 mmol/L (21-32) 05/13/18 06:00 Anion Gap 4 (8-16) L 05/13/18 06:00 BUN 18 mg/dL (7-18) D 05/13/18 06:00 Creatinine 1.1 mg/dL (0.7-1.3) 05/13/18 06:00 Creat Clearance w eGFR > 60 (>60) 05/13/18 06:00 Random Glucose 86 mg/dL (74-106) 05/13/18 06:00 Calcium 7.9 mg/dL (8.5-10.1) L 05/13/18 06:00 Total Bilirubin 0.3 mg/dL (0.2-1.0) D 05/13/18 06:00 AST 85 U/L (15-37) H D 05/13/18 06:00 ALT 68 U/L (12-78) D 05/13/18 06:00 Alkaline Phosphatase 117 U/L (45-117) 05/13/18 06:00 Total Protein 6.6 g/dl (6.4-8.2) D 05/13/18 06:00 Albumin 2.7 g/dl (3.4-5.0) L 05/13/18 06:00 Urine Color Yellow 05/12/18: Urine Appearance Clear 05/12/18 20: Urine pH 5.0 (5.0-8.0) 05/12/18 20:18 Ur Specific [place] 1.019 (1.001-1.035) 05/12/18 20:18 Urine Protein Negative (NEGATIVE) 06/19/18 20:18 Urine Glucose (UA) Negative (NEGATIVE) 05/12/18 20:18 Urine Ketones Negative (NEGATIVE) 05/12/18 20:18 Urine Blood Negative (NEGATIVE) 05/12/18 20:18 Urine Nitrite Negative (NEGATIVE) 05/12/18 20:18 Urine Bilirubin Negative (<2.0 mg/dL) 05/12/18 20:18 Urine Urobilinogen 2.0 mg/dL (0.2-1.0) 05/12/18 20:18 Ur Leukocyte Esterase Negative (NEGATIVE) 05/12/18 20:18 RPR Titer Nonreactive (NONREACTIVE) 05/13/18 06:00 lab noted - Treatment Hospital Course: Detox Protocol Followed, Detoxed Safely, Responded well, Discharged Condition Good, Rehab Referral Accepted Patient has Accepted a Rehab Referral to: [facility] - Medication Discharge Medications: Ambulatory Orders Dolutegravir Sodium [Tivicay] 50 mg PO DAILY #30 tablet 11/19/17 Trazodone HCl 150 mg PO HS #30 tablet 11/19/17 Ferrous Sulfate [Feosol] 325 mg PO TID 04/06/18 Lisinopril/Hydrochlorothiazide [Lisinopril-Hctz 20-25 mg Tab] 1 each PO DAILY Emtricitabine/Tenofov Alafenam [Descovy 200-25 mg Tablet (Nf)] 1 each PO DAILY 05/12/18 Bupropion HCl [Wellbutrin Xl -] 150 mg PO DAILY #30 tab.sr.24h 05/13/18 traZODone HCL [Desyrel -] 150 mg PO HS #30 tablet 05/13/18 Albuterol Sulfate Inhaler - [Ventolin HFA Inhaler -] 2 inh IH Q4H PRN #1 inhaler 05/17/18 Lisinopril [Prinivil] 20 mg PO DAILY #30 tablet 05/17/18 - Diagnosis (1) Nicotine dependence Current Visit: Yes Status: Acute Qualifiers: Nicotine product type: cigarettes Substance use status: in withdrawal Qualified Code(s): F17.213 - Nicotine dependence, cigarettes, with withdrawal (2) Opioid dependence with withdrawal Current Visit: Yes Status: Acute (3) Acquired immune deficiency syndrome (AIDS) Current Visit: Yes Status: Chronic (4) Asthma Current Visit: Yes Status: Chronic (5) Essential hypertension Current Visit: Yes Status: Chronic (6) Hepatitis C carrier Current Visit: Yes Status: Suspected (7) Use of cane as ambulatory aid Current Visit: Yes Status: Chronic (8) Bipolar II disorder Current Visit: Yes Status: Suspected - AMA Did Patient Leave Against Medical Advice: No
== END 2018-05-17 09:37 | disposition home or self-care (01) | DRG 773 ==
LOC: YASAS 13:33 → Y6N 15:35
PROVIDERS: ADMIT Family Medicine Addiction Medicine; ATTEND Family Medicine Addiction Medicine
PROC: HZ2ZZZZ Detoxification Services for Substance Abuse Treatment (ICD-10-PCS; principal; 2018-05-12)
DX: F11.23 Opioid dependence with withdrawal (principal); F14.20 Cocaine dependence, uncomplicated; F12.20 Cannabis dependence, uncomplicated; F17.213 Nicotine dependence, cigarettes, with withdrawal; F31.81 Bipolar II disorder; F19.24 Other psychoactive substance dependence with psychoactive substance-induced mood disorder; F19.282 Other psychoactive substance dependence with psychoactive substance-induced sleep disorder; B20 Human immunodeficiency virus [HIV] disease; B18.2 Chronic viral hepatitis C; J45.909 Unspecified asthma, uncomplicated; D50.9 Iron deficiency anemia, unspecified; R26.2 Difficulty in walking, not elsewhere classified; Z99.89 Dependence on other enabling machines and devices; Z91.14 Patient's other noncompliance with medication regimen; Z86.69 Personal history of other diseases of the nervous system and sense organs; Z87.898 Personal history of other specified conditions; Z91.013 Allergy to seafood
CPT/HCPCS: 36415; 80053; 81003; 85025; 85027; 86593; 93005; 93010

== ENCOUNTER 2022-03-11 14:13 | Inpatient (IN) | payer OTHER ==
[2022-03-11 17:53] VITALS: BMI 19.5
[2022-03-11] MEDS ORDERED: MAG HYDROX/AL HYDROX/SIMETH 30 ML UNIT-DOSE CUP PO PRN (18:41)
[2022-03-11] MEDS ORDERED: hydrOXYzine PAMOATE 25 MG CAPSULE (FP) PO PRN (18:41)
[2022-03-11] MEDS ORDERED: P-EPHED 60MG/TRIPROLIDI 2.5MG TABLET PO PRN (18:41)
[2022-03-11] MEDS ORDERED: IBUPROFEN 400 MG TABLET (FP) PO PRN (18:41)
[2022-03-11] MEDS ORDERED: LOPERAMIDE HCL 2 MG CAPSULE PO PRN (18:41)
[2022-03-11] MEDS ORDERED: ACETAMINOPHEN 325 MG TABLET (FP) PO PRN (18:41)
[2022-03-11] MEDS ORDERED: MAGNESIUM HYDROX 2400MG/30ML ORAL SUSPENSION 30 ML CUP PO PRN (18:41)
[2022-03-11] MEDS ORDERED: guaiFENesin 200 MG/10 ML 10 ML UNIT-DOSE CUPS PO PRN (18:41)
[2022-03-11] MEDS ORDERED: MAGNESIUM CITRATE 300 ML BOTTLE PO PRN (18:41)
[2022-03-11] MEDS ORDERED: NICOTINE POLACRILEX 2 MG GUM BC PRN (18:41)
[2022-03-12] MEDS: THIAMINE HCL 100 MG TABLET (FP) PO SCH ×2 (00:06→22:10)
[2022-03-12] MEDS ORDERED: methaDONE HCL 10 MG TABLET PO ONE (10:45)
[2022-03-12] MEDS ORDERED: methaDONE 40 MG, methaDONE 20 MG PO ONE (11:20)
[2022-03-12] MEDS ORDERED: methaDONE HCL 10 MG TABLET ONE (11:34)
[2022-03-12] MEDS ORDERED: methaDONE HCL 40 MG DISPERSABLE TABLET ONE (11:35)
[2022-03-12] MEDS: PRENATAL VITAMINS W/ FOLIC ACID TABLET (FP) PO SCH (11:42)
[2022-03-12 11:51] LABS: HEMATOCRIT 31.8 % (35.4-49); HEMOGLOBIN 10.2 GM/dL (11.7-16.9); MCH 27.4 pg (25.7-33.7); MCHC 32.2 g/dl (32.0-35.9); MEAN CELL VOLUME 85.1 fl (80-96); MEAN PLT VOLUME 8.8 fl (7.5-11.1); PLATELET COUNT 143 10^3/uL (134-434); RBC 3.74 M/mm3 (4.00-5.60); RDW 16.4 % (11.9-15.9); WHITE BLOOD COUNT 3.3 K/mm3 (4.0-10.0)
[2022-03-12 11:52] LABS: BLOOD UREA NITROGEN 19.5 mg/dL (7-18); CALCIUM 8.1 mg/dL (8.5-10.1)
[2022-03-12 11:53] LABS: ALBUMIN 2.4 g/dl (3.4-5.0)
[2022-03-12 11:56] LABS: CREATININE 1.1 mg/dL (0.55-1.3)
[2022-03-12 11:57] LABS: BILIRUBIN,TOTAL 0.2 mg/dL (0.2-1); TOT PROT 6.7 g/dl (6.4-8.2)
[2022-03-13] MEDS ORDERED: methaDONE HCL 10 MG TABLET ONE (05:33)
[2022-03-13] MEDS ORDERED: methaDONE HCL 40 MG DISPERSABLE TABLET ONE (05:34)
[2022-03-13] MEDS ORDERED: methaDONE HCL 10 MG TABLET PO SCH (06:00)
[2022-03-13] MEDS: methaDONE 40 MG, methaDONE 20 MG PO SCH (06:35)
[2022-03-13] MEDS: PRENATAL VITAMINS W/ FOLIC ACID TABLET (FP) PO SCH (09:59)
[2022-03-13] MEDS: CITALOPRAM HYDROBROMIDE 10 MG TABLET PO SCH (11:55)
[2022-03-13] MEDS: busPIRone HCL 10 MG TABLET (FP) PO SCH ×2 (11:55→21:48)
[2022-03-13] MEDS: THIAMINE HCL 100 MG TABLET (FP) PO SCH (21:48)
[2022-03-14] MEDS ORDERED: methaDONE HCL 10 MG TABLET ONE (07:46)
[2022-03-14] MEDS ORDERED: methaDONE HCL 40 MG DISPERSABLE TABLET ONE (07:46)
[2022-03-14] MEDS: methaDONE 40 MG, methaDONE 20 MG PO SCH (07:47)
[2022-03-14] MEDS ORDERED: PATIENT'S OWN MEDICATION (NON-FORMULARY) (Lisinopril/Hydrochlorothiazide [Lisinopril-Hctz PO SCH (10:30)
[2022-03-14] MEDS: busPIRone HCL 10 MG TABLET (FP) PO SCH ×2 (11:03→21:59)
[2022-03-14] MEDS: BICTEGRAV/EMTRICIT/TENOFOV (BIKTARVY) 50-200-25 MG TABLET PO SCH (11:03)
[2022-03-14] MEDS: CITALOPRAM HYDROBROMIDE 10 MG TABLET PO SCH (11:03)
[2022-03-14] MEDS: LISINOPRIL 20 MG TABLET PO SCH (11:03)
[2022-03-14] MEDS: TAMSULOSIN HCL 0.4 MG CAP PO SCH (11:03)
[2022-03-14] MEDS: PRENATAL VITAMINS W/ FOLIC ACID TABLET (FP) PO SCH (11:04)
[2022-03-14] MEDS: HYDROCHLOROTHIAZIDE 25 MG TABLET (FP) PO SCH (11:11)
[2022-03-14 16:08] LABS: SARS-CoV-2 NAA Not Detected (Not Detected)
[2022-03-14] MEDS: MELATONIN 5 MG TABLETS PO PRN (22:00)
[2022-03-14] MEDS: THIAMINE HCL 100 MG TABLET (FP) PO SCH (22:00)
[2022-03-14] MEDS: SENNOSIDES/DOCUSATE COMBO (SENNA PLUS) TABLET (UD) PO SCH (22:03)
[2022-03-15] MEDS ORDERED: methaDONE HCL 10 MG TABLET ONE (03:45)
[2022-03-15] MEDS ORDERED: methaDONE HCL 40 MG DISPERSABLE TABLET ONE (03:45)
[2022-03-15] MEDS: methaDONE 40 MG, methaDONE 20 MG PO SCH (06:32)
[2022-03-15] MEDS: TAMSULOSIN HCL 0.4 MG CAP PO SCH (07:34)
[2022-03-15] MEDS: BICTEGRAV/EMTRICIT/TENOFOV (BIKTARVY) 50-200-25 MG TABLET PO SCH (07:34)
[2022-03-15] MEDS: PRENATAL VITAMINS W/ FOLIC ACID TABLET (FP) PO SCH (10:09)
[2022-03-15] MEDS: HYDROCHLOROTHIAZIDE 25 MG TABLET (FP) PO SCH (10:10)
[2022-03-15] MEDS: LISINOPRIL 20 MG TABLET PO SCH (10:10)
[2022-03-15] MEDS: CITALOPRAM HYDROBROMIDE 10 MG TABLET PO SCH (10:10)
[2022-03-15] MEDS: busPIRone HCL 10 MG TABLET (FP) PO SCH ×2 (10:10→21:39)
[2022-03-15] MEDS: MELATONIN 5 MG TABLETS PO PRN (21:38)
[2022-03-15] MEDS: SENNOSIDES/DOCUSATE COMBO (SENNA PLUS) TABLET (UD) PO SCH (21:39)
[2022-03-15] MEDS: THIAMINE HCL 100 MG TABLET (FP) PO SCH (21:39)
[2022-03-16] MEDS ORDERED: methaDONE HCL 10 MG TABLET ONE (06:22)
[2022-03-16] MEDS: methaDONE 40 MG, methaDONE 20 MG PO SCH (06:23)
[2022-03-16] MEDS ORDERED: methaDONE HCL 40 MG DISPERSABLE TABLET ONE (06:23)
[2022-03-16] MEDS: CITALOPRAM HYDROBROMIDE 10 MG TABLET PO SCH (09:58)
[2022-03-16] MEDS: TAMSULOSIN HCL 0.4 MG CAP PO SCH (09:58)
[2022-03-16] MEDS: busPIRone HCL 10 MG TABLET (FP) PO SCH ×2 (09:58→21:30)
[2022-03-16] MEDS: HYDROCHLOROTHIAZIDE 25 MG TABLET (FP) PO SCH ×2 (09:58→10:06)
[2022-03-16] MEDS: LISINOPRIL 20 MG TABLET PO SCH ×2 (09:58→10:06)
[2022-03-16] MEDS: PRENATAL VITAMINS W/ FOLIC ACID TABLET (FP) PO SCH (09:59)
[2022-03-16] MEDS: SENNOSIDES/DOCUSATE COMBO (SENNA PLUS) TABLET (UD) PO SCH (21:30)
[2022-03-16] MEDS: THIAMINE HCL 100 MG TABLET (FP) PO SCH (21:30)
[2022-03-17] MEDS ORDERED: methaDONE HCL 10 MG TABLET ONE (03:51)
[2022-03-17] MEDS ORDERED: methaDONE HCL 40 MG DISPERSABLE TABLET ONE (03:51)
[2022-03-17] MEDS: methaDONE 40 MG, methaDONE 20 MG PO SCH (06:20)
[2022-03-17] MEDS: BICTEGRAV/EMTRICIT/TENOFOV (BIKTARVY) 50-200-25 MG TABLET PO SCH ×2 (07:05→07:06)
[2022-03-17] MEDS: LISINOPRIL 20 MG TABLET PO SCH (10:08)
[2022-03-17] MEDS: TAMSULOSIN HCL 0.4 MG CAP PO SCH (10:08)
[2022-03-17] MEDS: CITALOPRAM HYDROBROMIDE 10 MG TABLET PO SCH (10:08)
[2022-03-17] MEDS: busPIRone HCL 10 MG TABLET (FP) PO SCH ×2 (10:08→21:23)
[2022-03-17] MEDS: HYDROCHLOROTHIAZIDE 25 MG TABLET (FP) PO SCH (10:08)
[2022-03-17] MEDS: PRENATAL VITAMINS W/ FOLIC ACID TABLET (FP) PO SCH (10:08)
[2022-03-17] MEDS: SENNOSIDES/DOCUSATE COMBO (SENNA PLUS) TABLET (UD) PO SCH (21:23)
[2022-03-17] MEDS: THIAMINE HCL 100 MG TABLET (FP) PO SCH (21:23)
[2022-03-18] MEDS ORDERED: methaDONE HCL 40 MG DISPERSABLE TABLET ONE (05:55)
[2022-03-18] MEDS ORDERED: methaDONE HCL 10 MG TABLET ONE (05:55)
[2022-03-18] MEDS: methaDONE 40 MG, methaDONE 20 MG PO SCH (06:30)
[2022-03-18] MEDS: BICTEGRAV/EMTRICIT/TENOFOV (BIKTARVY) 50-200-25 MG TABLET PO SCH (07:08)
[2022-03-18] MEDS: TAMSULOSIN HCL 0.4 MG CAP PO SCH (07:32)
[2022-03-18] MEDS: PRENATAL VITAMINS W/ FOLIC ACID TABLET (FP) PO SCH (10:08)
[2022-03-18] MEDS: CITALOPRAM HYDROBROMIDE 10 MG TABLET PO SCH (10:09)
[2022-03-18] MEDS: busPIRone HCL 10 MG TABLET (FP) PO SCH ×2 (10:11→21:28)
[2022-03-18] MEDS: LISINOPRIL 20 MG TABLET PO SCH (10:11)
[2022-03-18] MEDS: HYDROCHLOROTHIAZIDE 25 MG TABLET (FP) PO SCH (10:11)
[2022-03-18] MEDS: METHOCARBAMOL 500 MG TABLET PO PRN ×2 (13:37→21:28)
[2022-03-18] MEDS: LIDOCAINE 5% TOPICAL PATCH TP SCH (13:38)
[2022-03-18] MEDS: THIAMINE HCL 100 MG TABLET (FP) PO SCH (21:28)
[2022-03-18] MEDS: SENNOSIDES/DOCUSATE COMBO (SENNA PLUS) TABLET (UD) PO SCH (21:28)
[2022-03-18] MEDS: LIDOCAINE PATCH REMOVAL MC SCH (21:29)
[2022-03-18] MEDS: METHYL SALICYLATE/MENTHOL OINT 30 GM TUBE TP SCH (22:08)
[2022-03-19] MEDS ORDERED: methaDONE HCL 10 MG TABLET ONE (06:17)
[2022-03-19] MEDS ORDERED: methaDONE HCL 40 MG DISPERSABLE TABLET ONE (06:17)
[2022-03-19] MEDS: methaDONE 40 MG, methaDONE 20 MG PO SCH (06:33)
[2022-03-19] MEDS: METHOCARBAMOL 500 MG TABLET PO PRN ×2 (06:35→21:33)
[2022-03-19] MEDS: BICTEGRAV/EMTRICIT/TENOFOV (BIKTARVY) 50-200-25 MG TABLET PO SCH (09:00)
[2022-03-19] MEDS: busPIRone HCL 10 MG TABLET (FP) PO SCH ×2 (10:17→21:30)
[2022-03-19] MEDS: CITALOPRAM HYDROBROMIDE 10 MG TABLET PO SCH (10:17)
[2022-03-19] MEDS: TAMSULOSIN HCL 0.4 MG CAP PO SCH (10:17)
[2022-03-19] MEDS: HYDROCHLOROTHIAZIDE 25 MG TABLET (FP) PO SCH (10:18)
[2022-03-19] MEDS: LIDOCAINE 5% TOPICAL PATCH TP SCH (10:18)
[2022-03-19] MEDS: LISINOPRIL 10 MG TABLET PO SCH (10:18)
[2022-03-19] MEDS: PRENATAL VITAMINS W/ FOLIC ACID TABLET (FP) PO SCH (10:18)
[2022-03-19] MEDS: THIAMINE HCL 100 MG TABLET (FP) PO SCH (21:30)
[2022-03-19] MEDS: METHYL SALICYLATE/MENTHOL OINT 30 GM TUBE TP SCH (21:31)
[2022-03-19] MEDS: LIDOCAINE PATCH REMOVAL MC SCH (21:31)
[2022-03-19] MEDS: SENNOSIDES/DOCUSATE COMBO (SENNA PLUS) TABLET (UD) PO SCH (21:32)
[2022-03-20] MEDS ORDERED: methaDONE HCL 40 MG DISPERSABLE TABLET ONE (02:48)
[2022-03-20] MEDS ORDERED: methaDONE HCL 10 MG TABLET ONE (02:48)
[2022-03-20] MEDS: methaDONE 40 MG, methaDONE 20 MG PO SCH (06:53)
[2022-03-20] MEDS: BICTEGRAV/EMTRICIT/TENOFOV (BIKTARVY) 50-200-25 MG TABLET PO SCH (07:33)
[2022-03-20] MEDS: TAMSULOSIN HCL 0.4 MG CAP PO SCH (07:33)
[2022-03-20] MEDS: HYDROCHLOROTHIAZIDE 25 MG TABLET (FP) PO SCH (10:17)
[2022-03-20] MEDS: PRENATAL VITAMINS W/ FOLIC ACID TABLET (FP) PO SCH (10:17)
[2022-03-20] MEDS: LIDOCAINE 5% TOPICAL PATCH TP SCH (10:17)
[2022-03-20] MEDS: LISINOPRIL 10 MG TABLET PO SCH (10:18)
[2022-03-20] MEDS: CITALOPRAM HYDROBROMIDE 10 MG TABLET PO SCH (10:19)
[2022-03-20] MEDS: METHOCARBAMOL 500 MG TABLET PO PRN (10:19)
[2022-03-20] MEDS: busPIRone HCL 10 MG TABLET (FP) PO SCH ×2 (10:19→22:10)
[2022-03-20 12:18] LABS: PH,URINE 6.5 (5.0-8.0); URINE APPEARANCE CLEAR; URINE BILIRUBIN NEGATIVE (NEGATIVE); URINE COLOR YELLOW; URINE GLUCOSE (UA) NEGATIVE (NEGATIVE); URINE KETONE NEGATIVE (NEGATIVE); URINE LEUK ESTERASE NEGATIVE (NEGATIVE); URINE NITRITE NEGATIVE (NEGATIVE); URINE PROTEIN NEGATIVE (NEGATIVE); URINE UROBILINOGEN 0.2 mg/dL (0.2-1.0)
[2022-03-20] MEDS: METHYL SALICYLATE/MENTHOL OINT 30 GM TUBE TP SCH (22:10)
[2022-03-20] MEDS: SENNOSIDES/DOCUSATE COMBO (SENNA PLUS) TABLET (UD) PO SCH (22:11)
[2022-03-20] MEDS: LIDOCAINE PATCH REMOVAL MC SCH (22:11)
[2022-03-20] MEDS: THIAMINE HCL 100 MG TABLET (FP) PO SCH (22:12)
[2022-03-21] MEDS ORDERED: methaDONE HCL 40 MG DISPERSABLE TABLET ONE (05:53)
[2022-03-21] MEDS ORDERED: methaDONE HCL 10 MG TABLET ONE (05:53)
[2022-03-21] MEDS: methaDONE 40 MG, methaDONE 20 MG PO SCH (07:24)
[2022-03-21] MEDS: BICTEGRAV/EMTRICIT/TENOFOV (BIKTARVY) 50-200-25 MG TABLET PO SCH (07:26)
[2022-03-21] MEDS: TAMSULOSIN HCL 0.4 MG CAP PO SCH (07:31)
[2022-03-21] MEDS: PRENATAL VITAMINS W/ FOLIC ACID TABLET (FP) PO SCH (10:15)
[2022-03-21] MEDS: busPIRone HCL 10 MG TABLET (FP) PO SCH ×2 (10:16→22:12)
[2022-03-21] MEDS: CITALOPRAM HYDROBROMIDE 10 MG TABLET PO SCH (10:16)
[2022-03-21] MEDS: LIDOCAINE 5% TOPICAL PATCH TP SCH (10:17)
[2022-03-21] MEDS: HYDROCHLOROTHIAZIDE 25 MG TABLET (FP) PO SCH (10:17)
[2022-03-21] MEDS: LISINOPRIL 10 MG TABLET PO SCH (10:18)
[2022-03-21] MEDS: THIAMINE HCL 100 MG TABLET (FP) PO SCH (22:12)
[2022-03-21] MEDS: SENNOSIDES/DOCUSATE COMBO (SENNA PLUS) TABLET (UD) PO SCH (22:12)
[2022-03-21] MEDS: METHOCARBAMOL 500 MG TABLET PO PRN (22:12)
[2022-03-21] MEDS: METHYL SALICYLATE/MENTHOL OINT 30 GM TUBE TP SCH (22:36)
[2022-03-21] MEDS: LIDOCAINE PATCH REMOVAL MC SCH (22:37)
[2022-03-22] MEDS ORDERED: methaDONE HCL 10 MG TABLET ONE (03:32)
[2022-03-22] MEDS ORDERED: methaDONE HCL 40 MG DISPERSABLE TABLET ONE (03:32)
[2022-03-22] MEDS: methaDONE 40 MG, methaDONE 20 MG PO SCH (06:33)
[2022-03-22] MEDS: BICTEGRAV/EMTRICIT/TENOFOV (BIKTARVY) 50-200-25 MG TABLET PO SCH (07:03)
[2022-03-22] MEDS: HYDROCHLOROTHIAZIDE 25 MG TABLET (FP) PO SCH (10:11)
[2022-03-22] MEDS: PRENATAL VITAMINS W/ FOLIC ACID TABLET (FP) PO SCH (10:11)
[2022-03-22] MEDS: LISINOPRIL 10 MG TABLET PO SCH (10:11)
[2022-03-22] MEDS: TAMSULOSIN HCL 0.4 MG CAP PO SCH (10:11)
[2022-03-22] MEDS: CITALOPRAM HYDROBROMIDE 10 MG TABLET PO SCH (10:11)
[2022-03-22] MEDS: busPIRone HCL 10 MG TABLET (FP) PO SCH ×2 (10:12→21:24)
[2022-03-22] MEDS: LIDOCAINE 5% TOPICAL PATCH TP SCH (10:12)
[2022-03-22] MEDS: METHOCARBAMOL 500 MG TABLET PO PRN (10:13)
[2022-03-22] MEDS: MELATONIN 5 MG TABLETS PO PRN (21:24)
[2022-03-22] MEDS: THIAMINE HCL 100 MG TABLET (FP) PO SCH (21:24)
[2022-03-22] MEDS: METHYL SALICYLATE/MENTHOL OINT 30 GM TUBE TP SCH (21:25)
[2022-03-22] MEDS: LIDOCAINE PATCH REMOVAL MC SCH (21:25)
[2022-03-22] MEDS: SENNOSIDES/DOCUSATE COMBO (SENNA PLUS) TABLET (UD) PO SCH (21:26)
[2022-03-23] MEDS ORDERED: methaDONE HCL 10 MG TABLET ONE (04:20)
[2022-03-23] MEDS ORDERED: methaDONE HCL 40 MG DISPERSABLE TABLET ONE (04:21)
[2022-03-23] MEDS: methaDONE 40 MG, methaDONE 20 MG PO SCH (06:32)
[2022-03-23] MEDS: BICTEGRAV/EMTRICIT/TENOFOV (BIKTARVY) 50-200-25 MG TABLET PO SCH (07:03)
[2022-03-23] MEDS: TAMSULOSIN HCL 0.4 MG CAP PO SCH (09:53)
[2022-03-23] MEDS: LISINOPRIL 10 MG TABLET PO SCH (09:54)
[2022-03-23] MEDS: HYDROCHLOROTHIAZIDE 25 MG TABLET (FP) PO SCH (09:54)
[2022-03-23] MEDS: CITALOPRAM HYDROBROMIDE 10 MG TABLET PO SCH (09:54)
[2022-03-23] MEDS: LIDOCAINE 5% TOPICAL PATCH TP SCH (09:54)
[2022-03-23] MEDS: busPIRone HCL 10 MG TABLET (FP) PO SCH ×2 (09:54→21:25)
[2022-03-23] MEDS: PRENATAL VITAMINS W/ FOLIC ACID TABLET (FP) PO SCH (09:54)
[2022-03-23] MEDS: THIAMINE HCL 100 MG TABLET (FP) PO SCH (21:24)
[2022-03-23] MEDS: METHYL SALICYLATE/MENTHOL OINT 30 GM TUBE TP SCH (21:25)
[2022-03-23] MEDS: LIDOCAINE PATCH REMOVAL MC SCH (21:25)
[2022-03-23] MEDS: SENNOSIDES/DOCUSATE COMBO (SENNA PLUS) TABLET (UD) PO SCH (21:26)
[2022-03-23] MEDS: METHOCARBAMOL 500 MG TABLET PO PRN (21:26)
[2022-03-24] MEDS ORDERED: methaDONE HCL 40 MG DISPERSABLE TABLET ONE (03:26)
[2022-03-24] MEDS ORDERED: methaDONE HCL 10 MG TABLET ONE (03:26)
[2022-03-24] MEDS: methaDONE 40 MG, methaDONE 20 MG PO SCH (06:32)
[2022-03-24] MEDS: METHOCARBAMOL 500 MG TABLET PO PRN ×2 (06:32→21:28)
[2022-03-24] MEDS: BICTEGRAV/EMTRICIT/TENOFOV (BIKTARVY) 50-200-25 MG TABLET PO SCH (07:29)
[2022-03-24] MEDS: ALBUTEROL SO4 HFA INHALER IH PRN (08:35)
[2022-03-24] MEDS: TAMSULOSIN HCL 0.4 MG CAP PO SCH (08:36)
[2022-03-24] MEDS: PRENATAL VITAMINS W/ FOLIC ACID TABLET (FP) PO SCH (09:52)
[2022-03-24] MEDS: CITALOPRAM HYDROBROMIDE 10 MG TABLET PO SCH (09:53)
[2022-03-24] MEDS: busPIRone HCL 10 MG TABLET (FP) PO SCH ×2 (09:53→21:26)
[2022-03-24] MEDS: HYDROCHLOROTHIAZIDE 25 MG TABLET (FP) PO SCH (09:53)
[2022-03-24] MEDS: LIDOCAINE 5% TOPICAL PATCH TP SCH (09:53)
[2022-03-24] MEDS: LISINOPRIL 10 MG TABLET PO SCH (09:53)
[2022-03-24] MEDS: SENNOSIDES/DOCUSATE COMBO (SENNA PLUS) TABLET (UD) PO SCH (21:26)
[2022-03-24] MEDS: THIAMINE HCL 100 MG TABLET (FP) PO SCH (21:26)
[2022-03-24] MEDS: LIDOCAINE PATCH REMOVAL MC SCH (21:27)
[2022-03-24] MEDS: METHYL SALICYLATE/MENTHOL OINT 30 GM TUBE TP SCH (21:27)
[2022-03-25] MEDS ORDERED: methaDONE HCL 40 MG DISPERSABLE TABLET ONE (06:26)
[2022-03-25] MEDS ORDERED: methaDONE HCL 10 MG TABLET ONE (06:26)
[2022-03-25] MEDS: methaDONE 40 MG, methaDONE 20 MG PO SCH (06:27)
[2022-03-25] MEDS: BICTEGRAV/EMTRICIT/TENOFOV (BIKTARVY) 50-200-25 MG TABLET PO SCH (07:16)
[2022-03-25] MEDS: TAMSULOSIN HCL 0.4 MG CAP PO SCH (10:19)
[2022-03-25] MEDS: CITALOPRAM HYDROBROMIDE 10 MG TABLET PO SCH (10:19)
[2022-03-25] MEDS: busPIRone HCL 10 MG TABLET (FP) PO SCH ×2 (10:20→21:52)
[2022-03-25] MEDS: HYDROCHLOROTHIAZIDE 25 MG TABLET (FP) PO SCH (10:20)
[2022-03-25] MEDS: LIDOCAINE 5% TOPICAL PATCH TP SCH (10:20)
[2022-03-25] MEDS: LISINOPRIL 10 MG TABLET PO SCH (10:21)
[2022-03-25] MEDS: METHOCARBAMOL 500 MG TABLET PO PRN (10:21)
[2022-03-25] MEDS: PRENATAL VITAMINS W/ FOLIC ACID TABLET (FP) PO SCH (10:21)
[2022-03-25] MEDS: ALBUTEROL SO4 HFA INHALER IH PRN (12:42)
[2022-03-25] MEDS: METHYL SALICYLATE/MENTHOL OINT 30 GM TUBE TP SCH (21:51)
[2022-03-25] MEDS: LIDOCAINE PATCH REMOVAL MC SCH (21:52)
[2022-03-25] MEDS: SENNOSIDES/DOCUSATE COMBO (SENNA PLUS) TABLET (UD) PO SCH (21:52)
[2022-03-25] MEDS: THIAMINE HCL 100 MG TABLET (FP) PO SCH (21:52)
[2022-03-26] MEDS ORDERED: methaDONE HCL 10 MG TABLET ONE (06:05)
[2022-03-26] MEDS ORDERED: methaDONE HCL 40 MG DISPERSABLE TABLET ONE (06:05)
[2022-03-26] MEDS: methaDONE 40 MG, methaDONE 20 MG PO SCH (06:07)
[2022-03-26] MEDS: HYDROCHLOROTHIAZIDE 25 MG TABLET (FP) PO SCH (09:54)
[2022-03-26] MEDS: busPIRone HCL 10 MG TABLET (FP) PO SCH ×2 (09:54→21:45)
[2022-03-26] MEDS: BICTEGRAV/EMTRICIT/TENOFOV (BIKTARVY) 50-200-25 MG TABLET PO SCH (09:54)
[2022-03-26] MEDS: TAMSULOSIN HCL 0.4 MG CAP PO SCH (09:54)
[2022-03-26] MEDS: PRENATAL VITAMINS W/ FOLIC ACID TABLET (FP) PO SCH (09:54)
[2022-03-26] MEDS: CITALOPRAM HYDROBROMIDE 10 MG TABLET PO SCH (09:54)
[2022-03-26] MEDS: LIDOCAINE 5% TOPICAL PATCH TP SCH (09:55)
[2022-03-26] MEDS: LISINOPRIL 10 MG TABLET PO SCH (09:55)
[2022-03-26] MEDS: METHOCARBAMOL 500 MG TABLET PO PRN ×2 (09:56→21:46)
[2022-03-26] MEDS: THIAMINE HCL 100 MG TABLET (FP) PO SCH (21:45)
[2022-03-26] MEDS: SENNOSIDES/DOCUSATE COMBO (SENNA PLUS) TABLET (UD) PO SCH (21:45)
[2022-03-26] MEDS: LIDOCAINE PATCH REMOVAL MC SCH (21:46)
[2022-03-26] MEDS: METHYL SALICYLATE/MENTHOL OINT 30 GM TUBE TP SCH (21:47)
[2022-03-27] MEDS ORDERED: methaDONE HCL 10 MG TABLET ONE (04:00)
[2022-03-27] MEDS ORDERED: methaDONE HCL 40 MG DISPERSABLE TABLET ONE (04:00)
[2022-03-27] MEDS: methaDONE 40 MG, methaDONE 20 MG PO SCH (06:39)
[2022-03-27] MEDS: BICTEGRAV/EMTRICIT/TENOFOV (BIKTARVY) 50-200-25 MG TABLET PO SCH (08:00)
[2022-03-27] MEDS: CITALOPRAM HYDROBROMIDE 10 MG TABLET PO SCH (09:59)
[2022-03-27] MEDS: busPIRone HCL 10 MG TABLET (FP) PO SCH ×2 (09:59→21:25)
[2022-03-27] MEDS: HYDROCHLOROTHIAZIDE 25 MG TABLET (FP) PO SCH (09:59)
[2022-03-27] MEDS: LISINOPRIL 10 MG TABLET PO SCH (09:59)
[2022-03-27] MEDS: TAMSULOSIN HCL 0.4 MG CAP PO SCH (09:59)
[2022-03-27] MEDS: LIDOCAINE 5% TOPICAL PATCH TP SCH (10:00)
[2022-03-27] MEDS: PRENATAL VITAMINS W/ FOLIC ACID TABLET (FP) PO SCH (10:00)
[2022-03-27] MEDS: METHOCARBAMOL 500 MG TABLET PO PRN (10:01)
[2022-03-27] MEDS: ALBUTEROL SO4 HFA INHALER IH PRN (12:30)
[2022-03-27] MEDS: THIAMINE HCL 100 MG TABLET (FP) PO SCH (21:25)
[2022-03-27] MEDS: SENNOSIDES/DOCUSATE COMBO (SENNA PLUS) TABLET (UD) PO SCH (21:26)
[2022-03-27] MEDS: LIDOCAINE PATCH REMOVAL MC SCH (21:26)
[2022-03-27] MEDS: METHYL SALICYLATE/MENTHOL OINT 30 GM TUBE TP SCH (21:26)
[2022-03-28] MEDS ORDERED: methaDONE HCL 10 MG TABLET ONE (04:14)
[2022-03-28] MEDS ORDERED: methaDONE HCL 40 MG DISPERSABLE TABLET ONE (04:15)
[2022-03-28] MEDS: methaDONE 40 MG, methaDONE 20 MG PO SCH (06:07)
[2022-03-28] MEDS: BICTEGRAV/EMTRICIT/TENOFOV (BIKTARVY) 50-200-25 MG TABLET PO SCH (07:48)
[2022-03-28] MEDS: CITALOPRAM HYDROBROMIDE 10 MG TABLET PO SCH (10:12)
[2022-03-28] MEDS: LIDOCAINE 5% TOPICAL PATCH TP SCH (10:12)
[2022-03-28] MEDS: HYDROCHLOROTHIAZIDE 25 MG TABLET (FP) PO SCH (10:12)
[2022-03-28] MEDS: LISINOPRIL 10 MG TABLET PO SCH (10:12)
[2022-03-28] MEDS: TAMSULOSIN HCL 0.4 MG CAP PO SCH (10:12)
[2022-03-28] MEDS: PRENATAL VITAMINS W/ FOLIC ACID TABLET (FP) PO SCH (10:12)
[2022-03-28] MEDS: busPIRone HCL 10 MG TABLET (FP) PO SCH ×2 (10:12→21:21)
[2022-03-28] MEDS: METHOCARBAMOL 500 MG TABLET PO PRN ×2 (10:14→21:21)
[2022-03-28] MEDS ORDERED: COLLOIDAL OATMEAL 1 BAR EACH TP PRN (11:58)
[2022-03-28] MEDS: THIAMINE HCL 100 MG TABLET (FP) PO SCH (21:21)
[2022-03-28] MEDS: SENNOSIDES/DOCUSATE COMBO (SENNA PLUS) TABLET (UD) PO SCH (21:22)
[2022-03-28] MEDS: METHYL SALICYLATE/MENTHOL OINT 30 GM TUBE TP SCH (21:22)
[2022-03-28] MEDS: LIDOCAINE PATCH REMOVAL MC SCH (21:22)
[2022-03-29] MEDS ORDERED: methaDONE HCL 10 MG TABLET ONE (05:05)
[2022-03-29] MEDS ORDERED: methaDONE HCL 40 MG DISPERSABLE TABLET ONE (05:05)
[2022-03-29] MEDS: methaDONE 40 MG, methaDONE 20 MG PO SCH (06:09)
[2022-03-29] MEDS: BICTEGRAV/EMTRICIT/TENOFOV (BIKTARVY) 50-200-25 MG TABLET PO SCH (09:00)
[2022-03-29] MEDS: HYDROCHLOROTHIAZIDE 25 MG TABLET (FP) PO SCH (10:40)
[2022-03-29] MEDS: LISINOPRIL 10 MG TABLET PO SCH (10:40)
[2022-03-29] MEDS: LIDOCAINE 5% TOPICAL PATCH TP SCH (10:41)
[2022-03-29] MEDS: PRENATAL VITAMINS W/ FOLIC ACID TABLET (FP) PO SCH (10:42)
[2022-03-29] MEDS: CITALOPRAM HYDROBROMIDE 10 MG TABLET PO SCH (10:43)
[2022-03-29] MEDS: METHOCARBAMOL 500 MG TABLET PO PRN (10:43)
[2022-03-29] MEDS: busPIRone HCL 10 MG TABLET (FP) PO SCH ×2 (10:43→21:57)
[2022-03-29] MEDS: TAMSULOSIN HCL 0.4 MG CAP PO SCH (10:45)
[2022-03-29] MEDS: METHYL SALICYLATE/MENTHOL OINT 30 GM TUBE TP SCH (21:57)
[2022-03-29] MEDS: SENNOSIDES/DOCUSATE COMBO (SENNA PLUS) TABLET (UD) PO SCH (21:58)
[2022-03-29] MEDS: LIDOCAINE PATCH REMOVAL MC SCH (21:58)
[2022-03-29] MEDS: THIAMINE HCL 100 MG TABLET (FP) PO SCH (21:59)
[2022-03-30] MEDS ORDERED: methaDONE HCL 40 MG DISPERSABLE TABLET ONE (05:51)
[2022-03-30] MEDS ORDERED: methaDONE HCL 10 MG TABLET ONE (05:51)
[2022-03-30] MEDS: methaDONE 40 MG, methaDONE 20 MG PO SCH (05:59)
[2022-03-30] MEDS: METHOCARBAMOL 500 MG TABLET PO PRN ×2 (06:00→22:02)
[2022-03-30] MEDS: TAMSULOSIN HCL 0.4 MG CAP PO SCH (08:02)
[2022-03-30] MEDS: BICTEGRAV/EMTRICIT/TENOFOV (BIKTARVY) 50-200-25 MG TABLET PO SCH (08:02)
[2022-03-30] MEDS: ALBUTEROL SO4 HFA INHALER IH PRN (08:46)
[2022-03-30] MEDS: HYDROCHLOROTHIAZIDE 25 MG TABLET (FP) PO SCH (10:18)
[2022-03-30] MEDS: LIDOCAINE 5% TOPICAL PATCH TP SCH (10:18)
[2022-03-30] MEDS: PRENATAL VITAMINS W/ FOLIC ACID TABLET (FP) PO SCH (10:18)
[2022-03-30] MEDS: busPIRone HCL 10 MG TABLET (FP) PO SCH ×2 (10:18→22:01)
[2022-03-30] MEDS: CITALOPRAM HYDROBROMIDE 10 MG TABLET PO SCH (10:18)
[2022-03-30] MEDS: LISINOPRIL 10 MG TABLET PO SCH (10:19)
[2022-03-30] MEDS: METHYL SALICYLATE/MENTHOL OINT 30 GM TUBE TP SCH (22:00)
[2022-03-30] MEDS: LIDOCAINE PATCH REMOVAL MC SCH (22:01)
[2022-03-30] MEDS: THIAMINE HCL 100 MG TABLET (FP) PO SCH (22:02)
[2022-03-30] MEDS: SENNOSIDES/DOCUSATE COMBO (SENNA PLUS) TABLET (UD) PO SCH (22:02)
[2022-03-31] MEDS ORDERED: methaDONE HCL 10 MG TABLET ONE (05:01)
[2022-03-31] MEDS ORDERED: methaDONE HCL 40 MG DISPERSABLE TABLET ONE (05:02)
[2022-03-31] MEDS: methaDONE 40 MG, methaDONE 20 MG PO SCH (05:46)
[2022-03-31] MEDS: TAMSULOSIN HCL 0.4 MG CAP PO SCH (07:45)
[2022-03-31] MEDS: PRENATAL VITAMINS W/ FOLIC ACID TABLET (FP) PO SCH (10:15)
[2022-03-31] MEDS: HYDROCHLOROTHIAZIDE 25 MG TABLET (FP) PO SCH (10:16)
[2022-03-31] MEDS: BICTEGRAV/EMTRICIT/TENOFOV (BIKTARVY) 50-200-25 MG TABLET PO SCH (10:16)
[2022-03-31] MEDS: CITALOPRAM HYDROBROMIDE 10 MG TABLET PO SCH (10:16)
[2022-03-31] MEDS: LIDOCAINE 5% TOPICAL PATCH TP SCH (10:16)
[2022-03-31] MEDS: busPIRone HCL 10 MG TABLET (FP) PO SCH ×2 (10:16→22:23)
[2022-03-31] MEDS: LISINOPRIL 10 MG TABLET PO SCH (10:17)
[2022-03-31] MEDS: METHOCARBAMOL 500 MG TABLET PO PRN ×2 (10:18→22:23)
[2022-03-31] MEDS: METHYL SALICYLATE/MENTHOL OINT 30 GM TUBE TP SCH (22:23)
[2022-03-31] MEDS: LIDOCAINE PATCH REMOVAL MC SCH (22:23)
[2022-03-31] MEDS: THIAMINE HCL 100 MG TABLET (FP) PO SCH (22:23)
[2022-03-31] MEDS: SENNOSIDES/DOCUSATE COMBO (SENNA PLUS) TABLET (UD) PO SCH (22:24)
[2022-04-01] MEDS ORDERED: methaDONE HCL 10 MG TABLET ONE (03:00)
[2022-04-01] MEDS ORDERED: methaDONE HCL 40 MG DISPERSABLE TABLET ONE (03:00)
[2022-04-01] MEDS: methaDONE 40 MG, methaDONE 20 MG PO SCH (05:41)
[2022-04-01] MEDS: BICTEGRAV/EMTRICIT/TENOFOV (BIKTARVY) 50-200-25 MG TABLET PO SCH (07:36)
[2022-04-01] MEDS: PRENATAL VITAMINS W/ FOLIC ACID TABLET (FP) PO SCH (10:20)
[2022-04-01] MEDS: HYDROCHLOROTHIAZIDE 25 MG TABLET (FP) PO SCH (10:20)
[2022-04-01] MEDS: TAMSULOSIN HCL 0.4 MG CAP PO SCH (10:20)
[2022-04-01] MEDS: LIDOCAINE 5% TOPICAL PATCH TP SCH (10:20)
[2022-04-01] MEDS: busPIRone HCL 10 MG TABLET (FP) PO SCH ×2 (10:20→21:36)
[2022-04-01] MEDS: CITALOPRAM HYDROBROMIDE 10 MG TABLET PO SCH (10:20)
[2022-04-01] MEDS: LISINOPRIL 10 MG TABLET PO SCH (10:20)
[2022-04-01] MEDS: METHOCARBAMOL 500 MG TABLET PO PRN ×2 (10:21→21:37)
[2022-04-01] MEDS: SENNOSIDES/DOCUSATE COMBO (SENNA PLUS) TABLET (UD) PO SCH (21:36)
[2022-04-01] MEDS: LIDOCAINE PATCH REMOVAL MC SCH (21:36)
[2022-04-01] MEDS: METHYL SALICYLATE/MENTHOL OINT 30 GM TUBE TP SCH (21:36)
[2022-04-01] MEDS: THIAMINE HCL 100 MG TABLET (FP) PO SCH (21:36)
[2022-04-02] MEDS ORDERED: methaDONE HCL 40 MG DISPERSABLE TABLET ONE (04:04)
[2022-04-02] MEDS ORDERED: methaDONE HCL 10 MG TABLET ONE (04:04)
[2022-04-02] MEDS: methaDONE 40 MG, methaDONE 20 MG PO SCH (05:49)
[2022-04-02] MEDS: BICTEGRAV/EMTRICIT/TENOFOV (BIKTARVY) 50-200-25 MG TABLET PO SCH (07:12)
[2022-04-02] MEDS: PRENATAL VITAMINS W/ FOLIC ACID TABLET (FP) PO SCH (10:08)
[2022-04-02] MEDS: HYDROCHLOROTHIAZIDE 25 MG TABLET (FP) PO SCH (10:09)
[2022-04-02] MEDS: LIDOCAINE 5% TOPICAL PATCH TP SCH (10:09)
[2022-04-02] MEDS: busPIRone HCL 10 MG TABLET (FP) PO SCH ×2 (10:09→22:09)
[2022-04-02] MEDS: CITALOPRAM HYDROBROMIDE 10 MG TABLET PO SCH (10:09)
[2022-04-02] MEDS: TAMSULOSIN HCL 0.4 MG CAP PO SCH (10:09)
[2022-04-02] MEDS: METHOCARBAMOL 500 MG TABLET PO PRN ×2 (10:10→22:09)
[2022-04-02] MEDS: LISINOPRIL 10 MG TABLET PO SCH (10:45)
[2022-04-02] MEDS: THIAMINE HCL 100 MG TABLET (FP) PO SCH (22:09)
[2022-04-02] MEDS: METHYL SALICYLATE/MENTHOL OINT 30 GM TUBE TP SCH (22:09)
[2022-04-02] MEDS: SENNOSIDES/DOCUSATE COMBO (SENNA PLUS) TABLET (UD) PO SCH (22:10)
[2022-04-02] MEDS: LIDOCAINE PATCH REMOVAL MC SCH (22:10)
[2022-04-03] MEDS ORDERED: methaDONE HCL 10 MG TABLET ONE (03:45)
[2022-04-03] MEDS ORDERED: methaDONE HCL 40 MG DISPERSABLE TABLET ONE (03:46)
[2022-04-03] MEDS: methaDONE 40 MG, methaDONE 20 MG PO SCH (05:43)
[2022-04-03] MEDS: BICTEGRAV/EMTRICIT/TENOFOV (BIKTARVY) 50-200-25 MG TABLET PO SCH (07:10)
[2022-04-03] MEDS: LISINOPRIL 10 MG TABLET PO SCH (10:00)
[2022-04-03] MEDS: LIDOCAINE 5% TOPICAL PATCH TP SCH (10:00)
[2022-04-03] MEDS: HYDROCHLOROTHIAZIDE 25 MG TABLET (FP) PO SCH (10:00)
[2022-04-03] MEDS: PRENATAL VITAMINS W/ FOLIC ACID TABLET (FP) PO SCH (10:00)
[2022-04-03] MEDS: TAMSULOSIN HCL 0.4 MG CAP PO SCH (10:01)
[2022-04-03] MEDS: CITALOPRAM HYDROBROMIDE 10 MG TABLET PO SCH (10:01)
[2022-04-03] MEDS: busPIRone HCL 10 MG TABLET (FP) PO SCH ×2 (10:01→21:32)
[2022-04-03] MEDS: THIAMINE HCL 100 MG TABLET (FP) PO SCH (21:32)
[2022-04-03] MEDS: METHOCARBAMOL 500 MG TABLET PO PRN (21:32)
[2022-04-03] MEDS: METHYL SALICYLATE/MENTHOL OINT 30 GM TUBE TP SCH (21:33)
[2022-04-03] MEDS: SENNOSIDES/DOCUSATE COMBO (SENNA PLUS) TABLET (UD) PO SCH (21:33)
[2022-04-03] MEDS: LIDOCAINE PATCH REMOVAL MC SCH (21:33)
[2022-04-04] MEDS ORDERED: methaDONE HCL 40 MG DISPERSABLE TABLET ONE (04:04)
[2022-04-04] MEDS ORDERED: methaDONE HCL 10 MG TABLET ONE (04:04)
[2022-04-04] MEDS: methaDONE 40 MG, methaDONE 20 MG PO SCH (05:50)
[2022-04-04] MEDS: BICTEGRAV/EMTRICIT/TENOFOV (BIKTARVY) 50-200-25 MG TABLET PO SCH (07:14)
[2022-04-04] MEDS: busPIRone HCL 10 MG TABLET (FP) PO SCH ×2 (10:30→21:41)
[2022-04-04] MEDS: CITALOPRAM HYDROBROMIDE 10 MG TABLET PO SCH (10:30)
[2022-04-04] MEDS: TAMSULOSIN HCL 0.4 MG CAP PO SCH (10:30)
[2022-04-04] MEDS: PRENATAL VITAMINS W/ FOLIC ACID TABLET (FP) PO SCH (10:30)
[2022-04-04] MEDS: LIDOCAINE 5% TOPICAL PATCH TP SCH (10:31)
[2022-04-04] MEDS: HYDROCHLOROTHIAZIDE 25 MG TABLET (FP) PO SCH (10:31)
[2022-04-04] MEDS: LISINOPRIL 10 MG TABLET PO SCH (10:31)
[2022-04-04] MEDS: METHOCARBAMOL 500 MG TABLET PO PRN ×2 (10:32→21:41)
[2022-04-04] MEDS: LIDOCAINE PATCH REMOVAL MC SCH (21:41)
[2022-04-04] MEDS: METHYL SALICYLATE/MENTHOL OINT 30 GM TUBE TP SCH (21:41)
[2022-04-04] MEDS: SENNOSIDES/DOCUSATE COMBO (SENNA PLUS) TABLET (UD) PO SCH (21:41)
[2022-04-04] MEDS: THIAMINE HCL 100 MG TABLET (FP) PO SCH (21:41)
[2022-04-05] MEDS ORDERED: methaDONE HCL 10 MG TABLET ONE (04:02)
[2022-04-05] MEDS ORDERED: methaDONE HCL 40 MG DISPERSABLE TABLET ONE (04:02)
[2022-04-05] MEDS: methaDONE 40 MG, methaDONE 20 MG PO SCH (05:57)
[2022-04-05 07:17] VITALS: TEMP 96.9
[2022-04-05] MEDS: BICTEGRAV/EMTRICIT/TENOFOV (BIKTARVY) 50-200-25 MG TABLET PO SCH (07:31)
[2022-04-05] MEDS: TAMSULOSIN HCL 0.4 MG CAP PO SCH (07:31)
[2022-04-05] MEDS: busPIRone HCL 10 MG TABLET (FP) PO SCH (09:14)
[2022-04-05] MEDS: LIDOCAINE 5% TOPICAL PATCH TP SCH (09:15)
[2022-04-05] MEDS: CITALOPRAM HYDROBROMIDE 10 MG TABLET PO SCH (09:15)
[2022-04-05] MEDS: HYDROCHLOROTHIAZIDE 25 MG TABLET (FP) PO SCH (09:15)
[2022-04-05] MEDS: LISINOPRIL 10 MG TABLET PO SCH (09:16)
[2022-04-05] MEDS: PRENATAL VITAMINS W/ FOLIC ACID TABLET (FP) PO SCH (09:17)
[2022-04-05 09:48] VITALS: BP 111/74; PULSE 92
== END 2022-04-05 09:30 | disposition home or self-care (01) | DRG 772 ==
LOC: YASAS 14:13 → Y5N 22:39
PROVIDERS: ADMIT Allergy & Immunology; ATTEND Allergy & Immunology
PROC: HZ42ZZZ Group Counseling for Substance Abuse Treatment, Cognitive-Behavioral (ICD-10-PCS; principal; 2022-03-11)
DX: F11.20 Opioid dependence, uncomplicated (principal); F14.20 Cocaine dependence, uncomplicated; F12.20 Cannabis dependence, uncomplicated; F17.210 Nicotine dependence, cigarettes, uncomplicated; F19.282 Other psychoactive substance dependence with psychoactive substance-induced sleep disorder; F19.24 Other psychoactive substance dependence with psychoactive substance-induced mood disorder; F31.9 Bipolar disorder, unspecified; F41.9 Anxiety disorder, unspecified; B20 Human immunodeficiency virus [HIV] disease; I10 Essential (primary) hypertension; Z96.641 Presence of right artificial hip joint; Z99.89 Dependence on other enabling machines and devices; Z86.19 Personal history of other infectious and parasitic diseases
CPT/HCPCS: 36415; 80053; 81003; 85027; 86593; 86780; C9803-CS; U0003; U0005

== ENCOUNTER 2023-02-25 11:42 | Inpatient (IN) | payer OTHER ==
[2023-02-25 13:04] VITALS: BMI 16.2
[2023-02-25] MEDS ORDERED: IBUPROFEN 400 MG TABLET (FP) PO PRN (13:23)
[2023-02-25] MEDS ORDERED: BENZONATATE 200 MG CAPSULE PO PRN (13:23)
[2023-02-25] MEDS ORDERED: NICOTINE POLACRILEX 2 MG GUM BC PRN (13:23)
[2023-02-25] MEDS ORDERED: MAGNESIUM HYDROX 2400MG/30ML ORAL SUSPENSION 30 ML CUP PO PRN (13:23)
[2023-02-25] MEDS ORDERED: guaiFENesin 600 MG TABLET.ER (FP) PO PRN (13:23)
[2023-02-25] MEDS ORDERED: ACETAMINOPHEN 325 MG TABLET (FP) PO PRN (13:23)
[2023-02-25] MEDS ORDERED: POLYETHYLENE GLYCOL (HEALTHYLAX) 3350 17 GM PACKET PO PRN (13:23)
[2023-02-25] MEDS ORDERED: NALOXONE HCL (KLOXXADO) 8 MG SPRAY NS PRN (13:23)
[2023-02-25] MEDS ORDERED: LOPERAMIDE HCL 2 MG CAPSULE PO PRN (13:23)
[2023-02-25] MEDS ORDERED: IBUPROFEN 600 MG TABLET (FP) PO PRN (13:23)
[2023-02-25] MEDS ORDERED: BENZOCAINE/MENTHOL (CHLORASEPTIC ) LOZENGE MM PRN (13:23)
[2023-02-25] MEDS ORDERED: NICOTINE 10 MG CARTRIDGE (INHALER) IH PRN (13:23)
[2023-02-25] MEDS ORDERED: NICOTINE 7 MG/24 HOURS TOPICAL PATCH TD PRN (13:23)
[2023-02-25] MEDS ORDERED: hydrOXYzine PAMOATE 25 MG CAPSULE (FP) PO PRN (13:23)
[2023-02-25] MEDS ORDERED: NALOXONE HCL 0.4 MG/ML VIAL IM PRN (13:23)
[2023-02-25] MEDS ORDERED: MAG HYDROX/AL HYDROX/SIMETH 30 ML UNIT-DOSE CUP PO PRN (13:23)
[2023-02-25] MEDS ORDERED: ALBUTEROL SO4 HFA INHALER IH PRN (13:28)
[2023-02-25] MEDS ORDERED: LISINOPRIL 20 MG TABLET PO SCH (14:30)
[2023-02-25 15:14] LABS: HEMATOCRIT 29.7 % (35.4-49); HEMOGLOBIN 9.8 GM/dL (11.7-16.9); MEAN CELL VOLUME 81.9 fl (80-96); PLATELET COUNT 188 10^3/uL (134-434); RBC 3.63 M/mm3 (4.00-5.60); RDW 16.7 % (11.9-15.9); WHITE BLOOD COUNT 4.7 K/mm3 (4.0-10.0)
[2023-02-25 15:33] LABS: ALBUMIN 2.7 g/dl (3.4-5.0); CALCIUM 8.5 mg/dL (8.5-10.1)
[2023-02-25 15:34] LABS: BLOOD UREA NITROGEN 18.5 mg/dL (7-18)
[2023-02-25 15:38] LABS: BILIRUBIN,TOTAL 0.2 mg/dL (0.2-1); TOT PROT 7.5 g/dl (6.4-8.2)
[2023-02-25] MEDS ORDERED: TUBERCULIN PPD 5 TU/0.1ML VIAL ID ONE (15:41)
[2023-02-25] MEDS: MELATONIN 5 MG TABLETS PO SCH (21:48)
[2023-02-25] MEDS: THIAMINE HCL 100 MG TABLET (FP) PO SCH (21:48)
[2023-02-26] MEDS: LISINOPRIL 20 MG TABLET PO SCH (09:26)
[2023-02-26] MEDS: methaDONE HCL 40 MG DISPERSABLE TABLET PO SCH (09:26)
[2023-02-26] MEDS: PRENATAL VITAMINS W/ FOLIC ACID TABLET (FP) PO SCH (09:26)
[2023-02-26] MEDS: MINERAL OIL/PETROLAT/WATER TOPICAL CREAM 113 GM JAR TP SCH (09:27)
[2023-02-26] MEDS: COLLOIDAL OATMEAL 1 BAR EACH TP PRN (09:29)
[2023-02-26 11:12] LABS: URINE APPEARANCE CLEAR; URINE BILIRUBIN NEGATIVE (NEGATIVE); URINE COLOR YELLOW; URINE GLUCOSE (UA) NEGATIVE (NEGATIVE); URINE KETONE NEGATIVE (NEGATIVE); URINE LEUK ESTERASE NEGATIVE (NEGATIVE); URINE NITRITE NEGATIVE (NEGATIVE); URINE PROTEIN NEGATIVE (NEGATIVE); URINE UROBILINOGEN 0.2 mg/dL (0.2-1.0)
[2023-02-26] MEDS: MELATONIN 5 MG TABLETS PO SCH (21:37)
[2023-02-26] MEDS: THIAMINE HCL 100 MG TABLET (FP) PO SCH (21:37)
[2023-02-27] MEDS: methaDONE HCL 40 MG DISPERSABLE TABLET PO SCH (05:50)
[2023-02-27] MEDS: MINERAL OIL/PETROLAT/WATER TOPICAL CREAM 113 GM JAR TP SCH (09:45)
[2023-02-27] MEDS: PRENATAL VITAMINS W/ FOLIC ACID TABLET (FP) PO SCH (09:45)
[2023-02-27] MEDS: LISINOPRIL 20 MG TABLET PO SCH (09:45)
[2023-02-27] MEDS: THIAMINE HCL 100 MG TABLET (FP) PO SCH (21:38)
[2023-02-27] MEDS: MELATONIN 5 MG TABLETS PO SCH (21:38)
[2023-02-28] MEDS: methaDONE HCL 40 MG DISPERSABLE TABLET PO SCH (06:19)
[2023-02-28] MEDS: PRENATAL VITAMINS W/ FOLIC ACID TABLET (FP) PO SCH (10:04)
[2023-02-28] MEDS: MINERAL OIL/PETROLAT/WATER TOPICAL CREAM 113 GM JAR TP SCH (10:05)
[2023-02-28] MEDS: LISINOPRIL 20 MG TABLET PO SCH (10:05)
[2023-02-28] MEDS: THIAMINE HCL 100 MG TABLET (FP) PO SCH (21:33)
[2023-02-28] MEDS: MELATONIN 5 MG TABLETS PO SCH (21:33)
[2023-03-01] MEDS: methaDONE HCL 40 MG DISPERSABLE TABLET PO SCH (06:11)
[2023-03-01] MEDS ORDERED: TRIMETHOBENZAMIDE HCL 200MG/2ML INJ IM ONE (07:00)
[2023-03-01] MEDS: LISINOPRIL 20 MG TABLET PO SCH (10:34)
[2023-03-01] MEDS: PRENATAL VITAMINS W/ FOLIC ACID TABLET (FP) PO SCH (10:34)
[2023-03-01] MEDS: MINERAL OIL/PETROLAT/WATER TOPICAL CREAM 113 GM JAR TP SCH (10:35)
[2023-03-01] MEDS: THIAMINE HCL 100 MG TABLET (FP) PO SCH (22:12)
[2023-03-01] MEDS: MELATONIN 5 MG TABLETS PO SCH (22:12)
[2023-03-02] MEDS: methaDONE HCL 40 MG DISPERSABLE TABLET PO SCH (06:57)
[2023-03-02] MEDS: PRENATAL VITAMINS W/ FOLIC ACID TABLET (FP) PO SCH (09:38)
[2023-03-02] MEDS: MINERAL OIL/PETROLAT/WATER TOPICAL CREAM 113 GM JAR TP SCH (09:39)
[2023-03-02] MEDS: LISINOPRIL 20 MG TABLET PO SCH (09:41)
[2023-03-02] MEDS: COLLOIDAL OATMEAL 1 BAR EACH TP PRN (10:01)
[2023-03-02] MEDS: MELATONIN 5 MG TABLETS PO SCH (21:00)
[2023-03-02] MEDS: THIAMINE HCL 100 MG TABLET (FP) PO SCH (21:00)
[2023-03-03] MEDS: methaDONE HCL 40 MG DISPERSABLE TABLET PO SCH (06:20)
[2023-03-03 07:06] VITALS: TEMP 97.5
[2023-03-03 09:09] VITALS: BP 100/62; PULSE 67; RESP 16
[2023-03-03] MEDS: PRENATAL VITAMINS W/ FOLIC ACID TABLET (FP) PO SCH (09:39)
[2023-03-03] MEDS: MINERAL OIL/PETROLAT/WATER TOPICAL CREAM 113 GM JAR TP SCH (09:41)
[2023-03-03] MEDS: LISINOPRIL 20 MG TABLET PO SCH (09:41)
== END 2023-03-03 14:51 | disposition home or self-care (01) | DRG 772 ==
LOC: YASAS 11:42 → Y3W 15:28
PROVIDERS: ADMIT Allergy & Immunology; ATTEND Psychiatry & Neurology Pain Medicine
PROC: HZ42ZZZ Group Counseling for Substance Abuse Treatment, Cognitive-Behavioral (ICD-10-PCS; principal; 2023-02-25)
DX: F14.20 Cocaine dependence, uncomplicated (principal); F11.20 Opioid dependence, uncomplicated; F17.210 Nicotine dependence, cigarettes, uncomplicated; F32.A Depression, unspecified; B20 Human immunodeficiency virus [HIV] disease; Z79.899 Other long term (current) drug therapy; I10 Essential (primary) hypertension; J45.909 Unspecified asthma, uncomplicated; M16.0 Bilateral primary osteoarthritis of hip; R63.4 Abnormal weight loss; Z68.1 Body mass index [BMI] 19.9 or less, adult; Z99.89 Dependence on other enabling machines and devices; Z86.19 Personal history of other infectious and parasitic diseases
CPT/HCPCS: 36415; 80053; 81003; 85027; 86593; 86780; 86803; 87522; 87811; 93005; 93010; C9803-CS; U0003; U0005

== ENCOUNTER 2023-05-03 14:46 | Inpatient (IN) | payer OTHER ==
[2023-05-03 15:08] VITALS: BMI 15.6
[2023-05-03] MEDS ORDERED: ALBUTEROL SO4 HFA INHALER IH PRN (16:47)
[2023-05-03] MEDS ORDERED: IBUPROFEN 400 MG TABLET (FP) PO PRN (16:54)
[2023-05-03] MEDS ORDERED: NALOXONE HCL 0.4 MG/ML VIAL IM PRN (16:54)
[2023-05-03] MEDS ORDERED: BENZONATATE 200 MG CAPSULE PO PRN (16:54)
[2023-05-03] MEDS ORDERED: guaiFENesin 600 MG TABLET.ER (FP) PO PRN (16:54)
[2023-05-03] MEDS ORDERED: BENZOCAINE/MENTHOL (CHLORASEPTIC ) LOZENGE MM PRN (16:54)
[2023-05-03] MEDS ORDERED: P-EPHED 60MG/TRIPROLIDI 2.5MG TABLET PO PRN (16:54)
[2023-05-03] MEDS ORDERED: MAGNESIUM HYDROX 2400MG/30ML ORAL SUSPENSION 30 ML CUP PO PRN (16:54)
[2023-05-03] MEDS ORDERED: ACETAMINOPHEN 325 MG TABLET (FP) PO PRN (16:54)
[2023-05-03] MEDS ORDERED: NALOXONE HCL (KLOXXADO) 8 MG SPRAY NS PRN (16:54)
[2023-05-03] MEDS ORDERED: POLYETHYLENE GLYCOL (HEALTHYLAX) 3350 17 GM PACKET PO PRN (16:54)
[2023-05-03] MEDS ORDERED: MELATONIN 5 MG TABLETS PO PRN (16:54)
[2023-05-03] MEDS ORDERED: LOPERAMIDE HCL 2 MG CAPSULE PO PRN (16:54)
[2023-05-03] MEDS ORDERED: AMMONIUM LACTATE 12% LOTION 225 GM BOTTLE TP PRN (16:54)
[2023-05-03] MEDS ORDERED: MAG HYDROX/AL HYDROX/SIMETH 30 ML UNIT-DOSE CUP PO PRN (16:54)
[2023-05-03] MEDS: THIAMINE HCL 100 MG TABLET (FP) PO SCH (22:18)
[2023-05-04] MEDS: PRENATAL VITAMINS W/ FOLIC ACID TABLET (FP) PO SCH (10:04)
[2023-05-04] MEDS ORDERED: methaDONE HCL 40 MG DISPERSABLE TABLET PO ONE (11:15)
[2023-05-04] MEDS: THIAMINE HCL 100 MG TABLET (FP) PO SCH (22:31)
[2023-05-05] MEDS: methaDONE HCL 40 MG DISPERSABLE TABLET PO SCH (10:03)
[2023-05-05] MEDS: PRENATAL VITAMINS W/ FOLIC ACID TABLET (FP) PO SCH (10:03)
[2023-05-05 10:13] LABS: PH,URINE 5.5 (5.0-8.0); URINE APPEARANCE CLEAR; URINE BILIRUBIN NEGATIVE (NEGATIVE); URINE COLOR YELLOW; URINE GLUCOSE (UA) NEGATIVE (NEGATIVE); URINE KETONE NEGATIVE (NEGATIVE); URINE LEUK ESTERASE NEGATIVE (NEGATIVE); URINE NITRITE NEGATIVE (NEGATIVE); URINE PROTEIN NEGATIVE (NEGATIVE); URINE UROBILINOGEN 0.2 mg/dL (0.2-1.0)
[2023-05-05] MEDS: COLLOIDAL OATMEAL 1 BAR EACH TP PRN (19:08)
[2023-05-05] MEDS: THIAMINE HCL 100 MG TABLET (FP) PO SCH (21:48)
[2023-05-06] MEDS: methaDONE HCL 40 MG DISPERSABLE TABLET PO SCH (06:22)
[2023-05-06] MEDS: PRENATAL VITAMINS W/ FOLIC ACID TABLET (FP) PO SCH (09:55)
[2023-05-06] MEDS: NICOTINE 10 MG CARTRIDGE (INHALER) IH PRN (09:57)
[2023-05-06] MEDS: THIAMINE HCL 100 MG TABLET (FP) PO SCH (21:36)
[2023-05-07] MEDS: methaDONE HCL 40 MG DISPERSABLE TABLET PO SCH (06:00)
[2023-05-07] MEDS: PRENATAL VITAMINS W/ FOLIC ACID TABLET (FP) PO SCH (10:23)
[2023-05-07] MEDS: NICOTINE 10 MG CARTRIDGE (INHALER) IH PRN (10:34)
[2023-05-07] MEDS: PANTOPRAZOLE 40 MG TABLET PO SCH (11:07)
[2023-05-07 11:23] LABS: HEMATOCRIT 32.7 % (35.4-49); HEMOGLOBIN 10.3 GM/dL (11.7-16.9); MCH 26.5 pg (25.7-33.7); MCHC 31.4 g/dl (32.0-35.9); MEAN CELL VOLUME 84.3 fl (80-96); MEAN PLT VOLUME 8.9 fl (7.5-11.1); PLATELET COUNT 154 10^3/uL (134-434); RBC 3.88 M/mm3 (4.00-5.60); RDW 17.5 % (11.9-15.9); WHITE BLOOD COUNT 3.2 K/mm3 (4.0-10.0)
[2023-05-07 11:34] LABS: POTASSIUM 4.4 mmol/L (3.5-5.1)
[2023-05-07 11:45] LABS: CALCIUM 8.5 mg/dL (8.5-10.1)
[2023-05-07 11:46] LABS: ALBUMIN 2.7 g/dl (3.4-5.0); BLOOD UREA NITROGEN 23.1 mg/dL (7-18)
[2023-05-07 11:49] LABS: CREATININE 0.8 mg/dL (0.55-1.3)
[2023-05-07 11:50] LABS: BILIRUBIN,TOTAL 0.5 mg/dL (0.2-1); TOT PROT 7.2 g/dl (6.4-8.2)
[2023-05-07] MEDS: THIAMINE HCL 100 MG TABLET (FP) PO SCH (21:20)
[2023-05-07] MEDS: SUVOREXANT 10 MG TABLET PO PRN (21:21)
[2023-05-07] MEDS: hydrOXYzine PAMOATE 25 MG CAPSULE (FP) PO PRN (21:21)
[2023-05-08] MEDS: methaDONE HCL 40 MG DISPERSABLE TABLET PO SCH (06:02)
[2023-05-08] MEDS: PANTOPRAZOLE 40 MG TABLET PO SCH (10:14)
[2023-05-08] MEDS: PRENATAL VITAMINS W/ FOLIC ACID TABLET (FP) PO SCH (10:14)
[2023-05-08] MEDS: NICOTINE 10 MG CARTRIDGE (INHALER) IH PRN (12:20)
[2023-05-08] MEDS: THIAMINE HCL 100 MG TABLET (FP) PO SCH (21:42)
[2023-05-09] MEDS: SUVOREXANT 10 MG TABLET PO PRN ×2 (01:39→22:09)
[2023-05-09] MEDS: methaDONE HCL 40 MG DISPERSABLE TABLET PO SCH (06:47)
[2023-05-09] MEDS: PANTOPRAZOLE 40 MG TABLET PO SCH (10:15)
[2023-05-09] MEDS: PRENATAL VITAMINS W/ FOLIC ACID TABLET (FP) PO SCH (10:15)
[2023-05-09] MEDS: THIAMINE HCL 100 MG TABLET (FP) PO SCH (21:54)
[2023-05-09] MEDS: hydrOXYzine PAMOATE 25 MG CAPSULE (FP) PO PRN (22:09)
[2023-05-10] MEDS: methaDONE HCL 40 MG DISPERSABLE TABLET PO SCH (06:21)
[2023-05-10] MEDS: FERROUS SO4 325 MG TABLET (FP) PO SCH (09:36)
[2023-05-10] MEDS: PRENATAL VITAMINS W/ FOLIC ACID TABLET (FP) PO SCH (09:36)
[2023-05-10] MEDS: PANTOPRAZOLE 40 MG TABLET PO SCH (09:37)
[2023-05-10] MEDS: BICTEGRAV/EMTRICIT/TENOFOV (BIKTARVY) 50-200-25 MG TABLET PO SCH (09:37)
[2023-05-10] MEDS: LISINOPRIL 20 MG TABLET PO SCH (09:37)
[2023-05-10] MEDS: NICOTINE 10 MG CARTRIDGE (INHALER) IH PRN (09:38)
[2023-05-10] MEDS: hydrOXYzine PAMOATE 25 MG CAPSULE (FP) PO PRN (21:34)
[2023-05-10] MEDS: SUVOREXANT 10 MG TABLET PO PRN (21:34)
[2023-05-10] MEDS: THIAMINE HCL 100 MG TABLET (FP) PO SCH (21:35)
[2023-05-11] MEDS: methaDONE HCL 40 MG DISPERSABLE TABLET PO SCH (05:48)
[2023-05-11] MEDS: BICTEGRAV/EMTRICIT/TENOFOV (BIKTARVY) 50-200-25 MG TABLET PO SCH (10:01)
[2023-05-11] MEDS: FERROUS SO4 325 MG TABLET (FP) PO SCH (10:01)
[2023-05-11] MEDS: PRENATAL VITAMINS W/ FOLIC ACID TABLET (FP) PO SCH (10:01)
[2023-05-11] MEDS: LISINOPRIL 20 MG TABLET PO SCH (10:01)
[2023-05-11] MEDS: PANTOPRAZOLE 40 MG TABLET PO SCH (10:01)
[2023-05-11] MEDS: IBUPROFEN 600 MG TABLET (FP) PO PRN (13:22)
[2023-05-11] MEDS: hydrOXYzine PAMOATE 25 MG CAPSULE (FP) PO PRN (13:23)
[2023-05-11] MEDS: THIAMINE HCL 100 MG TABLET (FP) PO SCH (21:54)
[2023-05-12] MEDS: methaDONE HCL 40 MG DISPERSABLE TABLET PO SCH (06:42)
[2023-05-12] MEDS: BICTEGRAV/EMTRICIT/TENOFOV (BIKTARVY) 50-200-25 MG TABLET PO SCH (09:49)
[2023-05-12] MEDS: PANTOPRAZOLE 40 MG TABLET PO SCH (09:49)
[2023-05-12] MEDS: LISINOPRIL 20 MG TABLET PO SCH (09:50)
[2023-05-12] MEDS: PRENATAL VITAMINS W/ FOLIC ACID TABLET (FP) PO SCH (09:50)
[2023-05-12] MEDS: FERROUS SO4 325 MG TABLET (FP) PO SCH (09:50)
[2023-05-12] MEDS: LIDOCAINE 5% TOPICAL PATCH TP SCH (09:50)
[2023-05-12] MEDS: IBUPROFEN 600 MG TABLET (FP) PO PRN (09:52)
[2023-05-12] MEDS: THIAMINE HCL 100 MG TABLET (FP) PO SCH (21:37)
[2023-05-12] MEDS: SUVOREXANT 10 MG TABLET PO PRN (21:37)
[2023-05-13] MEDS: methaDONE HCL 40 MG DISPERSABLE TABLET PO SCH (06:35)
[2023-05-13] MEDS: PRENATAL VITAMINS W/ FOLIC ACID TABLET (FP) PO SCH (10:03)
[2023-05-13] MEDS: BICTEGRAV/EMTRICIT/TENOFOV (BIKTARVY) 50-200-25 MG TABLET PO SCH (10:03)
[2023-05-13] MEDS: PANTOPRAZOLE 40 MG TABLET PO SCH (10:03)
[2023-05-13] MEDS: FERROUS SO4 325 MG TABLET (FP) PO SCH (10:03)
[2023-05-13] MEDS: LISINOPRIL 20 MG TABLET PO SCH (10:03)
[2023-05-13] MEDS: LIDOCAINE 5% TOPICAL PATCH TP SCH (10:04)
[2023-05-13] MEDS: COLLOIDAL OATMEAL 1 BAR EACH TP PRN (10:06)
[2023-05-13] MEDS: THIAMINE HCL 100 MG TABLET (FP) PO SCH (21:21)
[2023-05-13] MEDS: SUVOREXANT 10 MG TABLET PO PRN (21:22)
[2023-05-14] MEDS: methaDONE HCL 40 MG DISPERSABLE TABLET PO SCH (06:29)
[2023-05-14] MEDS: PRENATAL VITAMINS W/ FOLIC ACID TABLET (FP) PO SCH (10:00)
[2023-05-14] MEDS: FERROUS SO4 325 MG TABLET (FP) PO SCH (10:01)
[2023-05-14] MEDS: BICTEGRAV/EMTRICIT/TENOFOV (BIKTARVY) 50-200-25 MG TABLET PO SCH (10:01)
[2023-05-14] MEDS: PANTOPRAZOLE 40 MG TABLET PO SCH (10:01)
[2023-05-14] MEDS: LIDOCAINE 5% TOPICAL PATCH TP SCH (10:03)
[2023-05-14] MEDS: LISINOPRIL 20 MG TABLET PO SCH (10:03)
[2023-05-14] MEDS: THIAMINE HCL 100 MG TABLET (FP) PO SCH (21:11)
[2023-05-14] MEDS: SUVOREXANT 15 MG TABLET PO PRN (21:11)
[2023-05-15] MEDS: methaDONE HCL 40 MG DISPERSABLE TABLET PO SCH (06:36)
[2023-05-15] MEDS: PRENATAL VITAMINS W/ FOLIC ACID TABLET (FP) PO SCH (10:10)
[2023-05-15] MEDS: NICOTINE 10 MG CARTRIDGE (INHALER) IH PRN (10:10)
[2023-05-15] MEDS: BICTEGRAV/EMTRICIT/TENOFOV (BIKTARVY) 50-200-25 MG TABLET PO SCH (10:10)
[2023-05-15] MEDS: FERROUS SO4 325 MG TABLET (FP) PO SCH (10:10)
[2023-05-15] MEDS: LISINOPRIL 10 MG TABLET PO SCH (10:10)
[2023-05-15] MEDS: PANTOPRAZOLE 40 MG TABLET PO SCH (10:10)
[2023-05-15] MEDS: LIDOCAINE 5% TOPICAL PATCH TP SCH (10:12)
[2023-05-15] MEDS: THIAMINE HCL 100 MG TABLET (FP) PO SCH (21:24)
[2023-05-15] MEDS: SUVOREXANT 15 MG TABLET PO PRN (21:24)
[2023-05-16] MEDS: methaDONE HCL 40 MG DISPERSABLE TABLET PO SCH (05:59)
[2023-05-16] MEDS: LIDOCAINE 5% TOPICAL PATCH TP SCH (10:04)
[2023-05-16] MEDS: PANTOPRAZOLE 40 MG TABLET PO SCH (10:04)
[2023-05-16] MEDS: FERROUS SO4 325 MG TABLET (FP) PO SCH (10:04)
[2023-05-16] MEDS: BICTEGRAV/EMTRICIT/TENOFOV (BIKTARVY) 50-200-25 MG TABLET PO SCH (10:04)
[2023-05-16] MEDS: PRENATAL VITAMINS W/ FOLIC ACID TABLET (FP) PO SCH (10:04)
[2023-05-16] MEDS: LISINOPRIL 10 MG TABLET PO SCH (10:04)
[2023-05-16] MEDS: NICOTINE 10 MG CARTRIDGE (INHALER) IH PRN (10:05)
[2023-05-16] MEDS: COLLOIDAL OATMEAL 1 BAR EACH TP PRN (10:07)
[2023-05-16] MEDS: THIAMINE HCL 100 MG TABLET (FP) PO SCH (21:29)
[2023-05-16] MEDS: SUVOREXANT 15 MG TABLET PO PRN (21:30)
[2023-05-16] MEDS: SENNOSIDES/DOCUSATE COMBO (SENNA PLUS) TABLET (UD) PO SCH (21:31)
[2023-05-17] MEDS: methaDONE HCL 40 MG DISPERSABLE TABLET PO SCH (06:04)
[2023-05-17] MEDS: LISINOPRIL 10 MG TABLET PO SCH (10:34)
[2023-05-17] MEDS: LIDOCAINE 5% TOPICAL PATCH TP SCH (10:34)
[2023-05-17] MEDS: PRENATAL VITAMINS W/ FOLIC ACID TABLET (FP) PO SCH (10:34)
[2023-05-17] MEDS: FERROUS SO4 325 MG TABLET (FP) PO SCH (10:34)
[2023-05-17] MEDS: PANTOPRAZOLE 40 MG TABLET PO SCH (10:34)
[2023-05-17] MEDS: BICTEGRAV/EMTRICIT/TENOFOV (BIKTARVY) 50-200-25 MG TABLET PO SCH (10:34)
[2023-05-17] MEDS: NICOTINE 10 MG CARTRIDGE (INHALER) IH PRN (10:46)
[2023-05-17] MEDS: THIAMINE HCL 100 MG TABLET (FP) PO SCH (22:09)
[2023-05-17] MEDS: SENNOSIDES/DOCUSATE COMBO (SENNA PLUS) TABLET (UD) PO SCH (22:09)
[2023-05-18] MEDS: methaDONE HCL 40 MG DISPERSABLE TABLET PO SCH (06:01)
[2023-05-18] MEDS: PRENATAL VITAMINS W/ FOLIC ACID TABLET (FP) PO SCH (09:55)
[2023-05-18] MEDS: FERROUS SO4 325 MG TABLET (FP) PO SCH (09:55)
[2023-05-18] MEDS: LISINOPRIL 10 MG TABLET PO SCH ×2 (09:55→11:54)
[2023-05-18] MEDS: PANTOPRAZOLE 40 MG TABLET PO SCH (09:55)
[2023-05-18] MEDS: BICTEGRAV/EMTRICIT/TENOFOV (BIKTARVY) 50-200-25 MG TABLET PO SCH (09:55)
[2023-05-18] MEDS: LIDOCAINE 5% TOPICAL PATCH TP SCH (10:27)
[2023-05-18] MEDS: THIAMINE HCL 100 MG TABLET (FP) PO SCH (21:33)
[2023-05-18] MEDS: SENNOSIDES/DOCUSATE COMBO (SENNA PLUS) TABLET (UD) PO SCH (21:34)
[2023-05-18] MEDS: SUVOREXANT 15 MG TABLET PO PRN (21:34)
[2023-05-19] MEDS: methaDONE HCL 40 MG DISPERSABLE TABLET PO SCH (06:17)
[2023-05-19] MEDS: PANTOPRAZOLE 40 MG TABLET PO SCH (09:59)
[2023-05-19] MEDS: PRENATAL VITAMINS W/ FOLIC ACID TABLET (FP) PO SCH (09:59)
[2023-05-19] MEDS: FERROUS SO4 325 MG TABLET (FP) PO SCH (09:59)
[2023-05-19] MEDS: LIDOCAINE 5% TOPICAL PATCH TP SCH (09:59)
[2023-05-19] MEDS: BICTEGRAV/EMTRICIT/TENOFOV (BIKTARVY) 50-200-25 MG TABLET PO SCH (09:59)
[2023-05-19] MEDS: LISINOPRIL 10 MG TABLET PO SCH (10:00)
[2023-05-19] MEDS: NICOTINE 10 MG CARTRIDGE (INHALER) IH PRN ×2 (13:34→21:45)
[2023-05-19] MEDS: SUVOREXANT 15 MG TABLET PO PRN (21:44)
[2023-05-19] MEDS: THIAMINE HCL 100 MG TABLET (FP) PO SCH (21:44)
[2023-05-19] MEDS: SENNOSIDES/DOCUSATE COMBO (SENNA PLUS) TABLET (UD) PO SCH (21:45)
[2023-05-20] MEDS: methaDONE HCL 40 MG DISPERSABLE TABLET PO SCH (06:21)
[2023-05-20 06:48] VITALS: RESP 16
[2023-05-20] MEDS: PANTOPRAZOLE 40 MG TABLET PO SCH (10:08)
[2023-05-20] MEDS: FERROUS SO4 325 MG TABLET (FP) PO SCH (10:08)
[2023-05-20] MEDS: PRENATAL VITAMINS W/ FOLIC ACID TABLET (FP) PO SCH (10:08)
[2023-05-20] MEDS: LIDOCAINE 5% TOPICAL PATCH TP SCH (10:08)
[2023-05-20] MEDS: BICTEGRAV/EMTRICIT/TENOFOV (BIKTARVY) 50-200-25 MG TABLET PO SCH (10:08)
[2023-05-20] MEDS: LISINOPRIL 10 MG TABLET PO SCH (10:09)
[2023-05-20] MEDS: NICOTINE 10 MG CARTRIDGE (INHALER) IH PRN (10:10)
[2023-05-20] MEDS: THIAMINE HCL 100 MG TABLET (FP) PO SCH (21:25)
[2023-05-20] MEDS: SUVOREXANT 15 MG TABLET PO PRN (21:25)
[2023-05-20] MEDS: SENNOSIDES/DOCUSATE COMBO (SENNA PLUS) TABLET (UD) PO SCH (21:26)
[2023-05-21] MEDS: methaDONE HCL 40 MG DISPERSABLE TABLET PO SCH (05:59)
[2023-05-21 07:10] VITALS: TEMP 97.5
[2023-05-21] MEDS: COLLOIDAL OATMEAL 1 BAR EACH TP PRN (08:48)
[2023-05-21] MEDS: NICOTINE 10 MG CARTRIDGE (INHALER) IH PRN (10:24)
[2023-05-21] MEDS: PANTOPRAZOLE 40 MG TABLET PO SCH (10:25)
[2023-05-21] MEDS: PRENATAL VITAMINS W/ FOLIC ACID TABLET (FP) PO SCH (10:25)
[2023-05-21] MEDS: FERROUS SO4 325 MG TABLET (FP) PO SCH (10:25)
[2023-05-21] MEDS: LIDOCAINE 5% TOPICAL PATCH TP SCH (10:25)
[2023-05-21] MEDS: LISINOPRIL 10 MG TABLET PO SCH (10:25)
[2023-05-21] MEDS: BICTEGRAV/EMTRICIT/TENOFOV (BIKTARVY) 50-200-25 MG TABLET PO SCH (10:25)
[2023-05-21] MEDS ORDERED: SUVOREXANT 15 MG TABLET PO PRN (22:00)
[2023-05-21] MEDS: THIAMINE HCL 100 MG TABLET (FP) PO SCH (22:50)
[2023-05-21] MEDS: SENNOSIDES/DOCUSATE COMBO (SENNA PLUS) TABLET (UD) PO SCH (22:50)
[2023-05-22] MEDS: methaDONE HCL 40 MG DISPERSABLE TABLET PO SCH (06:48)
[2023-05-22 08:59] VITALS: BP 111/73; PULSE 74
[2023-05-22] MEDS: BICTEGRAV/EMTRICIT/TENOFOV (BIKTARVY) 50-200-25 MG TABLET PO SCH (09:17)
[2023-05-22] MEDS: LIDOCAINE 5% TOPICAL PATCH TP SCH (09:17)
[2023-05-22] MEDS: PANTOPRAZOLE 40 MG TABLET PO SCH (09:17)
[2023-05-22] MEDS: FERROUS SO4 325 MG TABLET (FP) PO SCH (09:17)
[2023-05-22] MEDS: LISINOPRIL 10 MG TABLET PO SCH (09:17)
[2023-05-22] MEDS: PRENATAL VITAMINS W/ FOLIC ACID TABLET (FP) PO SCH (09:17)
== END 2023-05-22 09:33 | disposition home or self-care (01) | DRG 772 ==
LOC: YASAS 14:46 → Y3W 18:14
PROVIDERS: ADMIT Allergy & Immunology; ATTEND Psychiatry & Neurology Pain Medicine
PROC: HZ42ZZZ Group Counseling for Substance Abuse Treatment, Cognitive-Behavioral (ICD-10-PCS; principal; 2023-05-03)
DX: F14.20 Cocaine dependence, uncomplicated (principal); F11.20 Opioid dependence, uncomplicated; F19.282 Other psychoactive substance dependence with psychoactive substance-induced sleep disorder; F41.9 Anxiety disorder, unspecified; F32.A Depression, unspecified; B20 Human immunodeficiency virus [HIV] disease; Z79.899 Other long term (current) drug therapy; I10 Essential (primary) hypertension; J45.909 Unspecified asthma, uncomplicated; M16.0 Bilateral primary osteoarthritis of hip; M17.0 Bilateral primary osteoarthritis of knee; R63.4 Abnormal weight loss; Z68.1 Body mass index [BMI] 19.9 or less, adult; Z86.19 Personal history of other infectious and parasitic diseases; Z99.89 Dependence on other enabling machines and devices
CPT/HCPCS: 36415; 80053; 81003; 85027; 86593; 86780; 87635; 93005; 93010

== ENCOUNTER 2024-07-07 13:02 | Inpatient (IN) | payer OTHER ==
[2024-07-07 13:44] VITALS: BMI 16.7
[2024-07-07] MEDS ORDERED: IBUPROFEN 600 MG TABLET (FP) PO PRN (19:25)
[2024-07-07] MEDS ORDERED: BENZOCAINE/MENTHOL (CHLORASEPTIC ) LOZENGE MM PRN (19:25)
[2024-07-07] MEDS ORDERED: MAGNESIUM HYDROX 2400MG/30ML ORAL SUSPENSION 30 ML CUP PO PRN (19:25)
[2024-07-07] MEDS ORDERED: NALOXONE (NARCAN) HCL 4 MG/0.1 ML SPRAY NS PRN (19:25)
[2024-07-07] MEDS ORDERED: guaiFENesin 600 MG TABLET.ER (FP) PO PRN (19:25)
[2024-07-07] MEDS ORDERED: MAG HYDROX/AL HYDROX/SIMETH 30 ML UNIT-DOSE CUP PO PRN (19:25)
[2024-07-07] MEDS ORDERED: IBUPROFEN 400 MG TABLET (FP) PO PRN (19:25)
[2024-07-07] MEDS ORDERED: POLYETHYLENE GLYCOL (HEALTHYLAX) 3350 17 GM PACKET PO PRN (19:25)
[2024-07-07] MEDS ORDERED: ACETAMINOPHEN 325 MG TABLET (FP) PO PRN (19:25)
[2024-07-07] MEDS ORDERED: NALOXONE HCL 0.4 MG/ML VIAL IM PRN (19:25)
[2024-07-07] MEDS ORDERED: LOPERAMIDE HCL 2 MG CAPSULE PO PRN (19:25)
[2024-07-07] MEDS ORDERED: BENZONATATE 200 MG CAPSULE PO PRN (19:25)
[2024-07-07] MEDS: MELATONIN 5 MG TABLETS PO SCH (21:58)
[2024-07-07] MEDS: THIAMINE 100 MG TABLET PO SCH (21:58)
[2024-07-08] MEDS: BICTEGRAV/EMTRICIT/TENOFOV (BIKTARVY) 50-200-25 MG TABLET PO SCH (09:47)
[2024-07-08] MEDS: PRENATAL VITAMINS W/ FOLIC ACID TABLET (FP) PO SCH (09:47)
[2024-07-08] MEDS ORDERED: methaDONE HCL 40 MG DISPERSABLE TABLET PO SCH (10:00)
[2024-07-08] MEDS: methaDONE 40 MG, methaDONE 10 MG PO ONE (10:29)
[2024-07-08 11:31] LABS: HEMATOCRIT 30.1 % (35.4-49); MCH 29.1 pg (25.7-33.7); MCHC 33.1 g/dl (32.0-35.9); MEAN PLT VOLUME 8.3 fl (7.5-11.1); PLATELET COUNT 138 10^3/uL (134-434); RBC 3.42 M/mm3 (4.00-5.60); RDW 17.3 % (11.9-15.9); WHITE BLOOD COUNT 2.5 K/mm3 (4.0-10.0)
[2024-07-08 11:47] LABS: CHLORIDE 111 mmol/L (98-107); POTASSIUM 4.5 mmol/L (3.5-5.1); SODIUM 141 mmol/L (136-145)
[2024-07-08 11:54] LABS: BLOOD UREA NITROGEN 23.6 mg/dL (7-18)
[2024-07-08 11:55] LABS: ALBUMIN 2.5 g/dl (3.4-5.0); CALCIUM 8.6 mg/dL (8.5-10.1); GLUCOSE,RANDOM 96 mg/dL (74-106); SGPT/ALT 12 U/L (13-61)
[2024-07-08 11:56] LABS: ANION GAP 5 mmol/L (4-13); BILIRUBIN,TOTAL < 0.1 mg/dL (0.2-1); CO2 25 mmol/L (21-32); SGOT/AST 19 U/L (15-37); TOT PROT 6.1 g/dl (6.4-8.2)
[2024-07-08 11:58] LABS: ALK PHOS 150 U/L (45-117); CREATININE 1.1 mg/dL (0.55-1.3)
[2024-07-09] MEDS: methaDONE 40 MG, methaDONE 10 MG PO SCH (05:45)
[2024-07-09] MEDS: BICTEGRAV/EMTRICIT/TENOFOV (BIKTARVY) 50-200-25 MG TABLET PO SCH (07:05)
[2024-07-11 09:11] LABS: URINE APPEARANCE CLEAR; URINE BILIRUBIN NEGATIVE (NEGATIVE); URINE COLOR YELLOW; URINE GLUCOSE (UA) NEGATIVE (NEGATIVE); URINE KETONE NEGATIVE (NEGATIVE); URINE LEUK ESTERASE NEGATIVE (NEGATIVE); URINE NITRITE NEGATIVE (NEGATIVE); URINE PROTEIN NEGATIVE (NEGATIVE); URINE UROBILINOGEN 0.2 mg/dL (0.2-1.0)
[2024-07-11] MEDS: ALBUTEROL SO4 HFA INHALER IH PRN (18:56)
[2024-07-13] MEDS: SUVOREXANT 10 MG TABLET PO PRN (21:20)
[2024-07-13] MEDS: PRAZOSIN HCL 1 MG CAPSULE PO SCH (21:20)
[2024-07-13] MEDS ORDERED: PRAZOSIN HCL 1 MG CAPSULE PO SCH (22:00)
[2024-07-15] MEDS: SUVOREXANT 10 MG TABLET PO PRN (21:13)
[2024-07-19] MEDS: SUVOREXANT 10 MG TABLET PO ONE (21:19)
[2024-07-20] MEDS: SUVOREXANT 15 MG TABLET PO PRN (21:17)
[2024-07-20] MEDS ORDERED: SUVOREXANT 10 MG TABLET PO PRN (22:00)
[2024-07-22 07:12] VITALS: TEMP 97.5
[2024-07-22] MEDS: SUVOREXANT 15 MG TABLET PO PRN (21:25)
[2024-07-23 06:51] VITALS: BP 124/87; PULSE 62; RESP 16
== END 2024-07-23 09:49 | disposition home or self-care (01) | DRG 772 ==
LOC: YASAS 13:02 → Y3NR 20:10 → Y3W 07-09 13:03
PROVIDERS: ADMIT Allergy & Immunology; ATTEND Psychiatry & Neurology Pain Medicine
PROC: HZ42ZZZ Group Counseling for Substance Abuse Treatment, Cognitive-Behavioral (ICD-10-PCS; principal; 2024-07-07)
DX: F14.20 Cocaine dependence, uncomplicated (principal); F11.20 Opioid dependence, uncomplicated; F12.20 Cannabis dependence, uncomplicated; F17.210 Nicotine dependence, cigarettes, uncomplicated; F19.282 Other psychoactive substance dependence with psychoactive substance-induced sleep disorder; F19.24 Other psychoactive substance dependence with psychoactive substance-induced mood disorder; F32.A Depression, unspecified; Z21 Asymptomatic human immunodeficiency virus [HIV] infection status; I10 Essential (primary) hypertension; J45.909 Unspecified asthma, uncomplicated; M16.12 Unilateral primary osteoarthritis, left hip; M17.11 Unilateral primary osteoarthritis, right knee; Z86.19 Personal history of other infectious and parasitic diseases; Z99.89 Dependence on other enabling machines and devices
CPT/HCPCS: 36415; 80053; 80305; 81003; 85027; 86593; 86780; 87811; 93005; 93010

== ENCOUNTER 2025-04-09 10:37 | Inpatient (IN) | payer OTHER ==
[2025-04-09 11:59] VITALS: BMI 19.0
[2025-04-09] MEDS ORDERED: MAGNESIUM HYDROX 2400MG/30ML ORAL SUSPENSION 30 ML CUP PO PRN (12:15)
[2025-04-09] MEDS ORDERED: POLYETHYLENE GLYCOL (HEALTHYLAX) 3350 17 GM PACKET PO PRN (12:15)
[2025-04-09] MEDS ORDERED: MAG HYDROX/AL HYDROX/SIMETH 30 ML UNIT-DOSE CUP PO PRN (12:15)
[2025-04-09] MEDS ORDERED: DICYCLOMINE HCL 10 MG CAPSULE PO PRN (12:15)
[2025-04-09] MEDS ORDERED: NALOXONE (NARCAN) HCL 4 MG/0.1 ML SPRAY NS PRN (12:15)
[2025-04-09] MEDS ORDERED: BISMUTH SUBSALICYLATE 524 MG/30 ML PO PRN (12:15)
[2025-04-09] MEDS ORDERED: BENZOCAINE/MENTHOL (CHLORASEPTIC ) LOZENGE MM PRN (12:15)
[2025-04-09] MEDS ORDERED: BENZONATATE 200 MG CAPSULE PO PRN (12:15)
[2025-04-09] MEDS ORDERED: guaiFENesin 600 MG TABLET.ER (FP) PO PRN (12:15)
[2025-04-09] MEDS ORDERED: ACETAMINOPHEN 325 MG TABLET (FP) PO PRN (12:15)
[2025-04-09] MEDS: cloNIDine HCL 0.1 MG TABLET PO SCH (14:47)
[2025-04-09] MEDS: THIAMINE 100 MG TABLET PO SCH (23:25)
[2025-04-10] MEDS: MELATONIN 5 MG TABLETS PO SCH (00:05)
[2025-04-10] MEDS ORDERED: methaDONE HCL 10 MG TABLET PO SCH (06:00)
[2025-04-10] MEDS: methaDONE 40 MG, methaDONE 10 MG PO SCH (06:15)
[2025-04-10] MEDS: BICTEGRAV/EMTRICIT/TENOFOV (BIKTARVY) 50-200-25 MG TABLET PO SCH (08:32)
[2025-04-10 08:34] LABS: HEMATOCRIT 29.3 % (40.1-51.0); HEMOGLOBIN 8.8 g/dL (13.7-17.5); MEAN CELL VOLUME 88.3 fl (79.0-92.2); MEAN PLT VOLUME 10.1 fl (9.4-12.4); PLATELET COUNT 108 x10^3/uL (163-337); RDW 14.7 % (12.2-16.1)
[2025-04-10 08:36] LABS: CHLORIDE 113 mmol/L (98-107); POTASSIUM 4.1 mmol/L (3.5-5.1); SODIUM 144 mmol/L (136-145)
[2025-04-10 08:42] LABS: ALBUMIN 2.2 g/dl (3.4-5.0); ANION GAP 3 mmol/L (4-13); BLOOD UREA NITROGEN 17.3 mg/dL (7-18); CO2 28 mmol/L (21-32); GLUCOSE,RANDOM 90 mg/dL (74-106)
[2025-04-10 08:45] LABS: CREATININE 0.8 mg/dL (0.55-1.3); SGOT/AST 24 U/L (15-37); SGPT/ALT 15 U/L (13-61)
[2025-04-10 08:46] LABS: TOT PROT 5.9 g/dl (6.4-8.2)
[2025-04-10 08:47] LABS: BILIRUBIN,TOTAL 0.1 mg/dL (0.2-1)
[2025-04-10 08:48] LABS: ALK PHOS 149 U/L (45-117)
[2025-04-10] MEDS: PRENATAL VITAMINS W/ FOLIC ACID TABLET (FP) PO SCH (10:31)
[2025-04-10] MEDS: LOPERAMIDE HCL 2 MG CAPSULE PO PRN (10:31)
[2025-04-10] MEDS: IBUPROFEN 400 MG TABLET (FP) PO PRN (22:32)
[2025-04-10] MEDS: SUVOREXANT 10 MG TABLET PO PRN (22:33)
[2025-04-11] MEDS ORDERED: cloNIDine HCL 0.1 MG TABLET PO PRN
[2025-04-11] MEDS: methaDONE HCL 10 MG TABLET PO SCH (09:00)
[2025-04-11] MEDS: LISINOPRIL 20 MG TABLET PO SCH (09:44)
[2025-04-11] MEDS ORDERED: BICTEGRAV/EMTRICIT/TENOFOV (BIKTARVY) 50-200-25 MG TABLET PO SCH (10:00)
[2025-04-11] MEDS ORDERED: methaDONE HCL 10 MG TABLET PO ONE (11:45)
[2025-04-11] MEDS: ALBUTEROL SO4 HFA INHALER IH PRN (12:51)
[2025-04-12] MEDS ORDERED: methaDONE HCL 10 MG TABLET PO ONE (10:00)
[2025-04-13] MEDS ORDERED: cloNIDine HCL 0.1 MG TABLET PO PRN
[2025-04-13] MEDS ORDERED: methaDONE HCL 10 MG TABLET PO ONE (10:00)
[2025-04-13] MEDS: methaDONE HCL 10 MG TABLET PO ONE (10:15)
[2025-04-13] MEDS: FERROUS SO4 325 MG TABLET (FP) PO SCH (10:15)
[2025-04-13] MEDS: CARBAMIDE PEROXIDE 6.5% OTIC 15 ML BOTTLE AS SCH (21:58)
[2025-04-14] MEDS: METHOCARBAMOL 500 MG TABLET PO PRN (02:20)
[2025-04-14] MEDS: hydrOXYzine PAMOATE 25 MG CAPSULE (FP) PO PRN (02:20)
[2025-04-14] MEDS ORDERED: methaDONE HCL 10 MG TABLET PO ONE (10:00)
[2025-04-14] MEDS: methaDONE HCL 10 MG TABLET PO ONE (10:22)
[2025-04-15] MEDS: IBUPROFEN 600 MG TABLET (FP) PO PRN (20:46)
[2025-04-16 09:10] VITALS: BP 135/104; PULSE 77; RESP 18; TEMP 99.8
[2025-04-16] MEDS: ONDANSETRON *ODT* 4 MG TABLET SL PRN (09:29)
[2025-04-16] MEDS: methaDONE HCL 10 MG TABLET PO ONE (09:33)
== END 2025-04-16 10:01 | disposition home or self-care (01) | DRG 773 ==
LOC: YASAS 10:37 → Y6N 13:35
PROVIDERS: ADMIT Psychiatry & Neurology Pain Medicine; ATTEND Allergy & Immunology
PROC: HZ2ZZZZ Detoxification Services for Substance Abuse Treatment (ICD-10-PCS; principal; 2025-04-09)
DX: F11.23 Opioid dependence with withdrawal (principal); F10.20 Alcohol dependence, uncomplicated; F14.20 Cocaine dependence, uncomplicated; F12.20 Cannabis dependence, uncomplicated; F17.210 Nicotine dependence, cigarettes, uncomplicated; Z21 Asymptomatic human immunodeficiency virus [HIV] infection status; B18.2 Chronic viral hepatitis C; D50.9 Iron deficiency anemia, unspecified; I10 Essential (primary) hypertension; J45.909 Unspecified asthma, uncomplicated
CPT/HCPCS: 36415; 80053; 80305; 80307; 85027; 86593; 86780; 93005; 93010; Q0162